=== PATIENT | female | born 1965 | race Caucasian/White ===

== ENCOUNTER 2022-12-23 08:06 | Outpatient (OUT) | payer OTHER, SELFPAY ==
[2022-12-23 08:50] LABS: Basophils Absolute Auto 0.1 10^3/uL (0.0-0.1); Eosinophils Absolute Auto 0.2 10^3/uL (0.0-0.7); Eosinophils Percent Auto 3.3 % (0.9-7.0); Hematocrit 40.6 % (36.0-48.0); Hemoglobin 13.2 g/dL (12.0-16.0); Immature Granulocytes Abs Auto 0.02 10^3/uL (0.00-0.03); Immature Granulocytes Pct Auto 0.3 % (0.0-0.5); Lymphocytes Absolute Auto 2.1 10^3/uL (1.2-3.8); Lymphocytes Percent Auto 34.8 % (20.5-60.0); Mean Corpuscular HGB Conc 32.5 g/dL (29.9-35.2); Mean Corpuscular Hemoglobin 30.1 pg (26.7-34.0); Mean Corpuscular Volume 92.7 fL (81.0-99.0); Mean Platelet Volume 10.1 fL (9.5-13.5); Monocytes Absolute Auto 0.6 10^3/uL (0.3-0.8); Monocytes Percent Auto 10.6 % (1.7-12.0); Platelet Count 309 10^3/uL (150-450); Red Blood Count 4.38 10^6/uL (4.20-5.40); Red Cell Distribution Width 12.3 % (11.0-15.0)
[2022-12-23 09:11] LABS: Bilirubin Urine NEGATIVE (NEGATIVE); Blood Urine TRACE-I (NEGATIVE); Clarity Urine CLEAR (CLEAR); Color Urine LT. YELLOW (YELLOW); Glucose Urine UA NEGATIVE (NEGATIVE); Ketones Urine NEGATIVE (NEGATIVE); Leukocyte Esterase Urine MODERATE (NEGATIVE); Nitrite Urine NEGATIVE (NEGATIVE); Protein Urine NEGATIVE (NEG/TRACE); Specific Gravity Urine 1.015 (1.005-1.025); Urobilinogen Urine 0.2 EU/dL (0.2-1.0)
[2022-12-23 09:29] LABS: Alanine Aminotransferase 17 U/L (14-59); Albumin Level 3.8 g/dL (3.4-5.0); Alkaline Phosphatase 103 U/L (46-116); Anion Gap 11.7; Aspartate Amino Transferase 12 U/L (15-37); BUN Creatinine Ratio 14.5; Bilirubin Total 0.6 mg/dL (0.2-1.0); Calcium 9.7 mg/dL (8.5-10.1); Chloride 103 mmol/L (98-107); Chol HDL Ratio 4.3; Cholesterol 251 mg/dL (<=200); Estimated GFR (African America >60 (>=60); Estimated GFR (Non-African Ame >60 (>=60); Globulin 3.8 g/dL; Glucose 93 mg/dL (74-106); HDL Cholesterol 58 mg/dL (40-60); Potassium 4.7 mmol/L (3.5-5.1); Sodium 140 mmol/L (136-145); Total Protein 7.6 g/dL (6.4-8.2); Triglycerides 142 mg/dL (<=150); VLDL CHOLESTEROL 28.4 mg/dL
[2022-12-23 09:38] LABS: Urine Microscopic Indicated YES
[2022-12-23 10:27] LABS: Squamous Epithelial Cell Urine FEW #/LPF (NONE/RARE)
[2022-12-23 10:28] LABS: Bacteria Urine NONE SEEN #/HPF (NONE SEEN); Cast Seen? NONE SEEN #/LPF (NONE SEEN); Crystals Seen? None Seen #/HPF (None Seen); Mucus Urine NONE SEEN (NONE SEEN); RBC Urine 0-2 #/HPF (0-2); Starch Urine FEW; Urine Culture Indicated YES
== END 2022-12-23 08:07 | disposition home or self-care (01) ==
LOC: LAB 08:07
PROVIDERS: PCP Family Medicine; Visit Provider Family Medicine
DX: Z00.00 Encounter for general adult medical examination without abnormal findings (principal)
CPT/HCPCS: 36415; 80053; 80061; 81001; 85025; 87086

== ENCOUNTER 2023-01-28 15:04 | Outpatient (OUT) | payer OTHER, SELFPAY ==
--- NOTE | 2023-01-28 15:07 | MM_ITS ---
Patient: RONY IRBY Exam Date: 01/28/2023 : 1965 Gender:F Ordering : DR LEO ESTEBAN Admission #: [id number] Family : DR Lillian Zepeda M.D. Order #: [id number] CLICK HERE TO VIEW EXAM RADIOLOGY REPORT PROCEDURE: MM TOMOSYNTHESIS SCREENING BI COMPARISON: MG MAMM SCREEN 3D [place] CAD, 01/21/2021. MG MAMM SCREEN 3D [place] CAD, 01/27/2022. INDICATIONS: Screening Calculator Name NCI Breast Cancer Risk Assessment Tool 5 Year Breast Cancer Risk 0.80% Lifetime Breast Cancer Risk 5.30% Personal Breast Cancer No Personal Ovarian Cancer No Treatments None Family Cancers Mother with ovarian cancer at age ~40; Mother with colon cancer at age ~60; Father with lung cancer at age ~70. LOCATION: [facility] BREAST COMPOSITION: Extremely dense, which lowers the sensitivity of mammography. FINDINGS: DIAGNOSTIC CATEGORY 1--NEGATIVE. NO CHANGE FROM COMPARISON ASSESSMENT. Scattered benign-appearing calcifications are present. Scattered benign-appearing lymph nodes are present. RIGHT BREAST: No significant suspicious finding. LEFT BREAST: No significant suspicious finding. RECOMMENDATIONS: ROUTINE MAMMOGRAM AND CLINICAL EVALUATION IN 12 MONTHS. PLEASE NOTE: A NORMAL MAMMOGRAM DOES NOT EXCLUDE THE POSSIBILITY OF BREAST CANCER. A CLINICALLY SUSPICIOUS PALPABLE LUMP SHOULD BE BIOPSIED. Dictated by: Wolfgang Wilcox MD on 01/29/2023 at 08:11 Approved by: Wolfgang Wilcox MD on 01/29/2023 at 08:12
== END 2023-01-28 15:05 | disposition home or self-care (01) ==
LOC: MAMMO 15:04
PROVIDERS: PCP Family Medicine; Visit Provider Obstetrics & Gynecology
DX: Z12.31 Encounter for screening mammogram for malignant neoplasm of breast (principal); Z80.1 Family history of malignant neoplasm of trachea, bronchus and lung; Z80.0 Family history of malignant neoplasm of digestive organs; Z80.41 Family history of malignant neoplasm of ovary
CPT/HCPCS: 77063; 77067

== ENCOUNTER 2024-02-01 16:19 | Outpatient (OUT) | payer OTHER, SELFPAY ==
--- NOTE | 2024-02-01 | MM_ITS ---
Patient Name: RONY IRBY MR#: [id number] : 1965 Exam Date: 02/01/2024 Ordering Doctor: DR LEO ESTEBAN RADIOLOGY REPORT PROCEDURE: MM TOMOSYNTHESIS SCREENING BI COMPARISON: MM TOMOSYNTHESIS SCREENING BI, 01/28/2023. MG MAMM SCREEN 3D [place] CAD, 01/27/2022. MG MAMM SCREEN 3D [place] CAD, 01/21/2021. MG MAMM [place] SCRN W CAD DIG, 01/25/2013. INDICATIONS: screening mamm Z12.31 Calculator Name NCI Breast Cancer Risk Assessment Tool 5 Year Breast Cancer Risk 0.80% Lifetime Breast Cancer Risk 5.20% Personal Breast Cancer No Personal Ovarian Cancer No Treatments None Family Cancers Mother with ovarian cancer at age ~40; Mother with colon cancer at age ~60; Father with lung cancer at age ~70. LOCATION: [facility] BREAST COMPOSITION: The breasts are heterogeneously dense,which may obscure small masses. FINDINGS: DIAGNOSTIC CATEGORY 1--NEGATIVE. RIGHT BREAST: No significant suspicious finding. No significant change has occurred. LEFT BREAST: No significant suspicious finding. No significant change has occurred. RECOMMENDATIONS: ROUTINE MAMMOGRAM AND CLINICAL EVALUATION IN 12 MONTHS. PLEASE NOTE: A NORMAL MAMMOGRAM DOES NOT EXCLUDE THE POSSIBILITY OF BREAST CANCER. A CLINICALLY SUSPICIOUS PALPABLE LUMP SHOULD BE BIOPSIED. Dictated by: Marcellus Ross M.D. on 02/03/2024 at 14:23 Approved by: Marcellus Ross M.D. on 02/03/2024 at 14:25
--- OUTSIDE RECORDS SUMMARY | 2024-02-01 16:23 | XMS_ITS | CCD ---
Author Organization [facility] Care Team Providers Care Gold Letterer Name Role Phone Sergio Cowan Unavailable Lillian Cowan Unavailable MD Destin Harper Attending Provider MD Lillian Cowan Primary Care Provider Moshe Saini Unavailable Destin Harper Unavailable PARAG ., DR NICK Rhodes Attending Unavailable GARSIA ., DR NICK Rhodes Admitting Unavailable ESPINO ., NALLELY Consulting Unavailable COWAN, DR LILLIAN Cabral Primary Care Unavailable GARSIA ., DR NICK Rhodes Consulting Unavailable GARSIA ., DR NICK Rhodes Attending Unavailable GARSIA ., DR NICK Rhodes Admitting Unavailable COWAN, DR LILLIAN Cabral Primary Care Unavailable COWAN, DR LILLIAN Cabral Primary Care Unavailable GARSIA ., DR NICK Rhodes Admitting Unavailable GARSIA ., DR NICK Rhodes Attending Unavailable ESPINO ., NALLELY Consulting Unavailable GARSIA ., DR NICK Rhodes Admitting Unavailable GARSIA ., DR NICK Rhodes Attending Unavailable COWAN, DR LILLIAN Cabral Primary Care Unavailable ARLENE ., MELISSA Attending Unavailable ARLENE ., MELISSA Admitting Unavailable CAMRYN, DR LILLIAN Cabral Primary Care Unavailable ARLENE ., MELISSA Consulting Unavailable ARLENE ., MELISSA Attending Unavailable ARLENE ., MELISSA Admitting Unavailable CAMRYN, DR LILLIAN Cabral Primary Care Unavailable ARLENE ., MELISSA Attending Unavailable ARLENE ., MELISSA Admitting Unavailable ARLENE ., MELISSA Consulting Unavailable CAMRYN, DR LILLIAN Cabral Primary Care Unavailable CAMRYN, DR LILLIAN Cabral Primary Care Unavailable CAMRYN, DR LILLIAN Cabral Attending Unavailable CAMRYN, DR LILLIAN Cabral Admitting Unavailable DALE, DR EMI Au Consulting Unavailable CAMRYN, DR LILLIAN Cabral Consulting Unavailable DALE, DR MEI Au Consulting Unavailable CAMRYN, DR LILLIAN Cabral Primary Care Unavailable CAMRYN, DR LILLIAN Cabral Attending Unavailable CAMRYN, DR LILLIAN Cabral Admitting Unavailable CAMRYN, DR LILLIAN Cabral Consulting Unavailable PRINTSoraya, DR BAILEY Attending Unavailable PRINTY, DR BAILEY Admitting Unavailable ZIEBMANUEL, DR MARCELLUS Lai Consulting Unavailable CAMRYN, DR LILILAN Cabral Primary Care Unavailable PRINTY, DR BAILEY Consulting Unavailable ARLENE ., MELISSA Consulting Unavailable ARLENE ., MELISSA Attending Unavailable ARLENE ., MELISSA Admitting Unavailable CAMRYN, DR LILLIAN Cabral Primary Care Unavailable MD Lillian Cowan Primary Care Provider MD Destin Harper Attending Provider DO Moshe Saini Attending Provider [phone] MD Lillian Cowan Primary Care Provider DO Terry Sainiin A Attending Provider MD Lillian Cowan Primary Care Provider DO Darryl Moshe A Attending Provider MD Lillian Cowan Primary Care Provider DO Darryl Moshe A Attending Provider Moshe Saini Admitting Unavailable Lillian Cowan Primary Care Unavailable Moshe Saini Attending Unavailable Lillian Cowan Primary Care Unavailable Moshe Saini Attending Unavailable Moshe Saini Admitting Unavailable Lillian Cowan MD Primary Care Provider [phone] Allergies Allergy Classification Reported Allergen(s) Allergy Type Date of Onset Reaction(s) Facility (20 sources) Angiotensin-con verting enzyme inhibitor agent Drug allergy Unknown [employer] Other (10 sources) Angiotensin Converting Enzyme (Srinath) Inhibitors; Translations: [Srinath Inhibitors] Allergy to substance [address] [facility] (11 sources) benazepril Drug Allergy 5 Unknown [employer] Other (4 sources) patient allergy list reviewed by nurse or physicia Propensity to adverse reactions 9 Comment:Done [employer] Other (4 sources) Allergies Reconciled Propensity to adverse reactions Unknown [employer] Other (3 sources) Atenolol Propensity to adverse reactions 3 [facility] Medications Current Medications Medication Drug Class(es) Dates Sig (Normalized) Sig (Original) acetaminophen 500 mg oral tablet (20 sources) Start: 10-21-2022 take 500 mg by mouth three times daily Acetaminophen Active 500 MG PO Three times daily October 21, 2022 12:00am Start: 08-31-2022 take 2 tablets by mo uth every eight hours Acetaminophen 500 MG 2 tablets Orally Every 8 hours for 30 days DO NOT FILL UNTIL 11/02/2022 [facility] # [id number] Oct, Not-Taking/PRN amoxicillin 500 mg oral tablet (1 source) Penicillin-class Antibacterial Start: 04-27-2023 take 4 tablets by mouth every hour Amoxicillin 500 MG 4 tablets Orally 1 hour prior to procedure for 1 days Apr, Active atorvastatin 20 mg oral tablet (12 sources) HMG-CoA Reductase Inhibitor Start: 11-28-2023 atorvastatin (Lipitor) 20 MG tablet 11/28/2023 Active Start: 10-18-2023 take 1 tablet by fiordaliza th once daily Atorvastatin Active 0 .ROUTE .COMPLEX October 18, 2023 8:33am take 1 tablet by mouth once daily Start: 06-15-2023 End: 10-18-2023 take 1 tablet by mouth once daily Atorvastatin Discontinued 0 .ROUTE .COMPLEX June 15, 2023 4:13pm October 18, 2023 8:33am take 1 tablet by mouth once daily Start: 06-15-2023 End: 06-15-2023 take 20 mg by mouth once daily Atorvastatin Discontinu ed 20 MG PO Daily June 15, 2023 1:00am June 15, 2023 4:13pm take 1 tablet by fiordaliza th every twenty-four hours Atorvastatin Calcium 20 MG 1 tablet Orally Once a day for 30 days Active Calcium + D 500-1000-40 MG-UNT-MCG (18 sources) Calcium + D 500-1000-40 MG-UNT-MCG as directed Orally Active calcium acetate 667 mg oral capsule (3 sources) calcium acetate (Phoslo) 667 MG capsule Take by mouth 3 (three) times a day with meals. Active calcium carbonate 1500 mg / cholecalciferol 200 unt oral tablet (8 sources) Vitamin D Start: 3 take 1 tablet by mouth once daily in the morning Calcium Carbonate-Vitamin D3 (Calcium + D) 600 mg-5 mcg (200 unit) Tablet Active 1 TAB PO Every morning June 23, 2022 12:00am calcium carbonate 1250 mg / cholecalciferol 1000 unt / vitamin k 0.4 mg chewable tablet (4 sources) Vitamin D Calcium + D 500-1000-40 MG-UNT-MCG as directed Orally Active chondroitin sulfates 400 mg / glucosamine sulfate 500 mg oral tablet (3 sources) take 1 tablet by mouth in the morning, then take 1 tablet by mouth in the evening, then take 1 tablet by mouth at bedtime glucosamine-chondro itin 500-400 MG tablet Take 1 tablet by mouth in the morning and 1 tablet in the evening and 1 tablet before bedtime. Active Diclofenac Sod & Trolamine Josue (7 sources) Diclofenac Sod & Trolamine Josue Active docusate sodium 100 mg oral capsule (1 source) Start: 3 take 1 capsule by mouth every twelve hours Colace 100 MG 1 capsule Orally Twice a day for 14 days DO NOT FILL UNTIL 11/02/2022 [facility] # [id number] Oct, Active doxycycline hyclate 100 mg oral tablet (1 source) Tetracycline-class Drug Start: 3 take 1 tablet by mouth every twelve hours Doxycycline Hyclate 100 MG 1 tablet Orally Twice a day for 7 days DO NOT FILL UNTIL 11/02/2022 [facility] # [id number] Oct, Active FLUoxetine 20 mg oral capsule (12 sources) Serotonin Reuptake Inhibitor Start: 4 FLUoxetine (PROzac) 20 MG capsule .COMPLEX 10/18/2023 Active Start: 06-15-2023 End: 10-18-2023 take 1 capsule by mouth once daily Fluoxetine Active 0 .ROUTE .COMPLEX October 18, 2023 8:33am take 1 capsule by mouth once daily Start: 06-15-2023 End: 06-15-2023 take 20 mg by mouth once daily Fluoxetine Discontinued 20 MG PO Daily June 15, 2023 1:00am June 15, 2023 4:13pm Start: 04-01-2023 take 1 capsule by [facility] every twenty-four hours FLUoxetine HCl 10 MG 1 capsule Orally Once a day for 30 day(s) Mar, Active take 1 capsule by [facility] every twenty-four hours FLUoxetine HCl 20 MG 1 capsule Orally Once a day for 30 days Active Glucos Sul 3qnb-Ryu-Kxyfd-C-Mn (Glucosamine Chondroitin) 550-30-1 mg Capsule (5 sources) Start: 10-21-2022 take 1 capsule by mouth once daily in the morning Glucos Sul 9viw-Cfv-Atxbp-C-Mn (Glucosamine Chondroitin) 550-30-1 mg Capsule Active 1 CAP PO Every morning October 20, 2022 11:00pm Start: 10-21-2022 take 1 capsule by [facility] once daily in the morning Glucos Sul 8jmn-Qgl-Ysbkd-C-Mn (Glucosamine Chondroitin) 550-30-1 mg Capsule Active 1 CAP PO Every morning October 21, 2022 12:00am Viki 500 MG (20 sources) Viki 500 MG as d irected Orally Active Viki Extract (8 sources) Start: 06-23-2022 take 500 mg by mouth once daily in the morning Viki Extract Active 500 MG PO Every morning June 22, 2022 11:00pm Start: 06-23-2022 take 500 mg by mouth once daily in the morning Viki Extract Active 500 MG PO Every morning June 23, 2022 12:00am Start: 06-23-2022 take 500 mg by mouth once mary lou y Viki Extract Active 500 MG PO Daily June 23, 2022 12:00am Multi For Her - (20 sources) Multi For Her - as directed Orally Active Multiple Vitamins-Minerals (Multivitamin) liquid (3 sources) Multiple Vitamins-Minerals (Multivitamin) liquid Orally Active Multivitamin preparation (8 sources) Start: 06-23-2022 take 1 tablet by mouth once daily in the morning Multivitamin Active 1 TAB PO Every morning June 22, 2022 11:00pm Start: 06-23-2022 take 1 tablet by fiordaliza th once daily in the morning Multivitamin Active 1 TAB PO Every morning June 23, 2022 12:00am Start: 06-23-2022 take 1 tablet by fiordaliza th once daily Multivitamin Active 1 TAB PO Daily June 23, 2022 12:00am naproxen 500 mg oral tablet (20 sources) Nonsteroidal Anti-inflammatory Drug Start: 08-31-2022 take 500 mg by mouth twice daily Naproxen Active 500 MG PO Twice daily October 21, 2022 12:00am oxyCODONE hydrochloride 5 mg oral tablet (1 source) Opioid Agonist Start: 10-26-2022 take 1 tablet by mouth every four hours as needed for pain oxyCODONE HCl 5 MG 1 tablet Orally Every 4 hours, as needed for pain for 7 days DO NOT FILL UNTIL 11/02/2022 [facility] # [id number] Oct, Active 24 hr propranolol hydrochloride 120 mg extended release oral capsule (20 sources) beta-Adrenergic Negrita Start: 06-23-2022 take 1 capsule by mouth once daily propranolol LA (Inderal LA) 120 MG 24 hr capsule Indications: Tremor take 1 capsule by mouth once daily 90 capsule 10/18/2023 Active Start: 04-16-2022 End: 01-31-2024 take 1 capsule by mouth every twenty-four hours in the morning propranolol LA (Inderal LA) 80 MG 24 hr capsule Take 80 mg by mouth in the morning. 04/16/2022 01/31/2024 Discontinued (Ineffective) Turmeric Curcumin 5-1000 MG (10 sources) Turmeric Curcumi n 5-1000 MG as directed Orally Active Completed/Discontinued Medications Medication Drug Class(es) Dates Sig (Normalized) Sig (Original) aspirin 81 mg chewable tablet (11 sources) Platelet Aggregation Inhibitor, Nonsteroidal Anti-inflammatory Drug Start: 10-26-2022 take 1 tablet by mouth every twelve hours Aspirin 81 MG 1 tablet Orally Twice a day for 37 days DO NOT FILL UNTIL 11/02/2022 [facility] # [id number] Oct, Not-Taking/PRN atenolol 25 mg oral tablet (20 sources) beta-Adrenergic Negrita Atenolol 25 MG Oral for 30 Days Not-Taking/PRN cyclobenzaprine hydrochloride 10 mg oral tablet (20 sources) Muscle Relaxant Start: 10-26-2022 take 0.5-1 tablets by mouth every eight hours as needed Cyclobenzaprine HCl 10 MG 1/2 to 1 tab Orally Every 8 hours for 14 days DO NOT FILL UNTIL 11/02/2022 [facility] # [id number] Oct, Not-Taking/PRN Start: 06-23-2022 End: 11-10-2023 take 5 mg by mouth once daily Cyclobenzaprine Disconti nued 5 MG PO Daily June 23, 2022 12:00am November 10, 2023 3:52pm diclofenac sodium 50 mg delayed release oral tablet (20 sources) Nonsteroidal Anti-inflammatory Drug Start: 06-23-2022 End: 10-21-2022 take 50 mg by mouth twice daily Diclofenac Sodium Discontinued 50 MG PO Twice daily June 23, 2022 12:00am October 21, 2022 3:36pm take 1 capsule by mo [facility] every eight hours Diclofenac 35 MG 1 capsule as needed Ora lly Three times a day Not-Taking/PRN methylPREDNISolone 4 mg oral tablet (20 sources) Corticosteroid Start: 05-18-2022 methylPREDNISolone 4 MG as directed Orally for 6 days May, Not-Taking/PRN traMADol hydrochloride 50 mg oral tablet (20 sources) Opioid Agonist Start: 10-21-2022 End: 11-10-2023 take 50 mg by mouth once daily Tramadol Discontinued 50 MG PO Daily October 21, 2022 12:00am November 10, 2023 3:53pm Start: 08-31-2022 take 1 tablet by fiordaliza every four hours traMADol HCl 50 MG 1 tablet Orally Every 4 hours for 7 days DO NOT FILL UNTIL 11/02/2022 [facility] # [id number] Oct, Not-Taking/PRN Turmeric Root Extract (8 sources) Start: 06-23-2022 End: 10-21-2022 take 500 mg by mouth once daily Turmeric Root Extract Discontinued 500 MG PO Daily June 22, 2022 11:00pm October 21, 2022 2:37pm Start: 06-23-2022 End: 10-21-2022 take 500 mg by mouth once daily Turmeric Root Extract Discontinued 500 MG PO Daily June 23, 2022 12:00am October 21, 2022 3:37pm Start: 06-23-2022 take 500 mg by mouth once daily Turmeric Root Extract Active 500 MG PO Daily June 23, 2022 12:00am Problems Active Problems Problem Classification Problem Date Documented Date Episodic/Chronic Acquired foot deformities (3 sources) Acquired hallux malleus; Translations: [Other hammer toe(s) (acquired), left foot] Onset: 09-10-2022 09-10-2022 Chronic Anxiety disorders (6 sources) Generalized anxiety disorder; Translations: [Generalized anxiety disorder] Chronic Disorders of lipid metabolism (7 sources) Hyperlipidemia; Translations: [Hyperlipidemia, unspecified] Chronic Essential hypertension (20 sources) Essential hypertension; Translations: [Essential (primary) hypertension] Onset: 03-20-2013 Chronic Fluid and electrolyte disorders (4 sources) Hyperkalemia; Translations: [Hyperkalemia] Episodic Immunizations and screening for infectious disease (2 sources) Patient encounter status; Translations: [Encounter for screening for human papillomavirus (HPV)] 01-26-2024 Episodic Lymphadenitis (20 sources) Cervical lymphadenopathy; Translations: [Localized enlarged lymph nodes] Episodic Osteoarthritis (20 sources) Arthropathy of right hip joint; Translations: [Unilateral primary osteoarthritis, right hip] Onset: 09-11-2021 Resolved: 09-11-2021 Chronic Other acquired deformities (20 sources) Lumbar spondylolisthesis; Translations: [Spondylolisthesis, lumbar region] Episodic Other acquired deformities (6 sources) Spondylolisthesis, lumbar region; Translations: [SPONDYLOLISTHESIS LUMBAR REGION] Onset: 09-11-2021 Resolved: 09-11-2021 Episodic Other circulatory disease (4 sources) Elevated blood-pressure reading without diagnosis of hypertension; Translations: [Elevated blood-pressure reading, without diagnosis of hypertension] Episodic Other connective tissue disease (10 sources) History of total hip arthroplasty; Translations: [Presence of left artificial hip joint] Chronic Other connective tissue disease (7 sources) Presence of left artificial hip joint; Translations: [Hip joint replacement] Onset: 11-10-2023 Chronic Other connective tissue disease (2 sources) Hip joint prosthesis present; Translations: [Presence of left artificial hip joint] 11-05-2023 Chronic Other connective tissue disease (20 sources) Trochanteric bursitis; Translations: [Trochanteric bursitis, right hip] Episodic Other nervous system disorders (20 sources) Tremor; Translations: [Tremor, unspecified] Episodic Other non-traumatic joint disorders (20 sources) Arthralgia of the lower leg; Translations: [Pain in right knee] Episodic Other nutritional; endocrine; and metabolic disorders (4 sources) Body mass index 30+ - obesity; Translations: [Body mass index (BMI) 30.0-30.9, adult] Chronic Other nutritional; endocrine; and metabolic disorders (4 sources) Obese class I; Translations: [Body mass index (BMI) 31.0-31.9, adult] Chronic Other screening for suspected conditions (not mental disorders or infectious disease) (11 sources) Encounter for screening mammogram for malignant neoplasm of breast; Translations: [Mammography abnormal] Onset: 01-27-2022 Episodic Residual codes; unclassified (4 sources) Family history of malignant neoplasm of gastrointestinal tract; Translations: [Family history of malignant neoplasm of digestive organs] Episodic Residual codes; unclassified (4 sources) Family history of diabetes mellitus; Translations: [Family history of diabetes mellitus] Episodic Spondylosis; intervertebral disc disorders; other back problems (20 sources) Degeneration of lumbar intervertebral disc; Translations: [Other intervertebral disc degeneration, lumbar region] Onset: 08-26-2021 Chronic Spondylosis; intervertebral disc disorders; other back problems (20 sources) Lumbar radiculopathy; Translations: [Radiculopathy, lumbar region] Onset: 11-04-2021 Episodic Unclassified (4 sources) LOW BACK PAIN, UNSPECIFIED; Translations: [LOW BACK PAIN, UNSPECIFIED] Onset: 10-06-2021 Unclassified (1 source) Unilateral primary osteoarthritis, left hip; Translations: [Unilateral primary osteoarthritis, left hip] Onset: 04-21-2023 Past or Other Problems Problem Classification Problem Date Documented Da te Episodic/Chronic Abdominal pain (1 source) Lower abdominal pain, unspecified; Translations: [LOWER ABDOMINAL PAIN UNSPECIFIED] Onset: 04-16-2022 Episodic Other connective tissue disease (6 sources) Trochanteric bursitis, right hip; Translations: [TROCHANTERIC BURSITIS RIGHT HIP] Onset: 09-11-2021 Resolved: 09-11-2021 Episodic Other connective tissue disease (1 source) Trochanteric bursitis, left hip; Translations: [TROCHANTERIC BURSITIS LEFT HIP] Onset: 03-26-2022 Episodic Other eye disorders (4 sources) Disorder of eye; Translations: [Unspecified disorder of globe] Onset: 06-09-2013 Episodic Other fractures (3 sources) History of stress fracture; Translations: [Personal history of (healed) stress fracture] Onset: 09-10-2022 09-10-2022 Episodic Other non-traumatic joint disorders (5 sources) Pain in right hip; Translations: [PAIN IN RIGHT HIP] Onset: 05-18-2022 Episodic Other non-traumatic joint disorders (2 sources) Pain in left hip; Translations: [PAIN IN LEFT HIP] Onset: 05-19-2022 Episodic Other skin disorders (4 sources) Nail bed infection; Translations: [Onychia and paronychia of toe] Onset: 08-15-2015 Episodic Residual codes; unclassified (1 source) Family history of malignant neoplasm of ovary; Translations: [FAM HX MALIGNANT NEOPLASM OVARY] Onset: 02-04-2022 Episodic Residual codes; unclassified (1 source) Family history of malignant neoplasm of trachea, bronchus and lung; Translations: [FAM HX MALIG NEOPLSM TRACH BRON LNG] Onset: 02-04-2022 Episodic Residual codes; unclassified (1 source) Family history of malignant neoplasm of digestive organs; Translations: [FAM HX MALIG NEOPLASM DIGESTIV ORGN] Onset: 02-04-2022 Episodic Unclassified (1 source) LOW BACK PAIN, UNSPECIFIED; Translations: [LOW BACK PAIN, UNSPECIFIED] Onset: 10-03-2021 Results Test Name Value Interpretation Reference Range Facility XR hip LT min 2V(w/wo pelvis )*on 11-10-2023 XR hip LT min 2V(w/wo pelvis)* [facility] [address] [place] [address] XRay Report Signed Patient: Xuan Irby MR#: [id number] 84 : 1965 Acct:[id number] Age/Sex: 58 / F ADM Date: 11/10/23 [place] [facility] [place] Type[place] [facility] Attending Dr: Moshe Saini DO Copies to: Moshe Saini DO Ordering Provider: Moshe Saini DO Date of Service: 11/10/23 XR/XR hip LT min 2V(w/wo pelvis)*: Z96.642 - Presence of left artificial hip joint LEFT HIP - 2 views: CLINICAL HISTORY: Follow-up left DIANE COMPARISON: Hip series 04/21/2023 FINDINGS: Left DIANE without radiographic complication. No acute bony process. Degenerative changes involving the visualized lower lumbar spine and SI joints. XR/XR hip LT min 2V(w/wo pelvis)* IMPRESSION: NO EVIDENCE OF HARDWARE COMPLICATION.. Impression dictated by: Nate Marcano Jr., D.OSaúl11/10/2023 4:01 PM Dictation Location: RADIO-PC-08 Transcribed By: JUANIS 11/10/23 1601 Dictated By: Nate Marcano Jr, DO 11/10/23 1601 Signed By: 11/10/23 1601 Normal [facility] XR hip LT min 2V(w/wo pelvis )*on 04-21-2023 XR hip LT min 2V(w/wo pelvis)* [place] [address] XRay Report Signed Patient: Xuan Irby MR#: [id number] : 1965 Acct:[id number] Age/Sex: 58 / F ADM Date: 04/21/23 [place] [facility] [place] [facility] [facility] Attending Dr: Moshe Saini DO Copies to: Moshe Saini DO Ordering Provider: Moshe Saini DO Date of Service: 04/21/23 XR/XR hip LT min 2V(w/wo pelvis)*: Primary osteoarthritis of left hip LEFT HIP - 2 views: CLINICAL HISTORY: Status post left DIANE COMPARISON: Left hip 11/03/2022 FINDINGS: Left DIANE without radiographic complication. XR/XR hip LT min 2V(w/wo pelvis)* IMPRESSION: NO EVIDENCE OF HARDWARE COMPLICATION.. Impression dictated by: Nate Marcano Jr., D.O.04/21/2023 4:19 PM Dictation Location: RADIO-PC-08 Transcribed By: JUANIS 04/21/23 1619 Dictated By: Nate Marcano Jr, DO 04/21/23 1619 Signed By: 04/21/23 1619 Normal [facility] XR hip LT min 2V(w/wo pelvis)* [facility] [employer] Other XR hip LT min 2V(w/wo pelvis)* [facility] [employer] Other XR hip LT min 2V(w/wo pelvis)* [address] [place] [address] [employer] Other XR hip LT min 2V(w/wo pelvis)* [place] [address] [employer] Other XR hip LT min 2V(w/wo pelvis)* XRay Report [employer] Other XR hip LT min 2V(w/wo pelvis)* Signed [employer] Other XR hip LT min 2V(w/wo pelvis)* Patient: Xuan Irby MR#: [id number] [employer] Other XR hip LT min 2V(w/wo pelvis)* 84 [employer] Other XR hip LT min 2V(w/wo pelvis)* : 1965 Acct:[id number] [employer] Other XR hip LT min 2V(w/wo pelvis)* Age/Sex: 58 / F ADM Date: 04/21/23 [employer] Other XR hip LT min 2V(w/wo pelvis)* [place] [facility] [place] [facility] [employer] Other XR hip LT min 2V(w/wo pelvis)* Attending Dr: Moshe Saini DO [employer] Other XR hip LT min 2V(w/wo pelvis)* Copies to: Moshe Saini DO [employer] Other XR hip LT min 2V(w/wo pelvis)* Ordering Provider: Moshe Saini DO [employer] Other XR hip LT min 2V(w/wo pelvis)* Date of Service: 04/21/23 [employer] Other XR hip LT min 2V(w/wo pelvis)* XR/XR hip LT min 2V(w/wo pelvis)*: Primary osteoarthritis of left hip [employer] Other XR hip LT min 2V(w/wo pelvis)* LEFT HIP - 2 views: [employer] Other XR hip LT min 2V(w/wo pelvis)* CLINICAL HISTORY: Status post left DIANE [employer] Other XR hip LT min 2V(w/wo pelvis)* COMPARISON: Left hip 11/03/2022 [employer] Other XR hip LT min 2V(w/wo pelvis)* FINDINGS: Left DIANE without radiographic complication. [employer] Other XR hip LT min 2V(w/wo pelvis)* XR/XR hip LT min 2V(w/wo pelvis)* [employer] Other XR hip LT min 2V(w/wo pelvis)* IMPRESSION: [employer] Other XR hip LT min 2V(w/wo pelvis)* NO EVIDENCE OF HARDWARE COMPLICATION.. [employer] Other XR hip LT min 2V(w/wo pelvis)* Impression dictated by: Nate Marcano Jr., D.O.04/21/2023 4:19 PM [employer] Other XR hip LT min 2V(w/wo pelvis)* Dictation Location: [place] [address] [employer] Other XR hip LT min 2V(w/wo pelvis)* Transcribed By: PWS 04/21/23 [facility] [employer] Other XR hip LT min 2V(w/wo pelvis)* Dictated By: Nate Marcano Jr, DO 04/21/23 [facility] [employer] Other XR hip LT min 2V(w/wo pelvis)* Signed By: [employer] Other XR hip LT min 2V(w/wo pelvis)* 04/21/23 [facility] [employer] Other Alanine aminotransferase [En zymatic activity/volume] in Serum or PlasmaOrdered By: Moshe Saini on 10-21-2022 ALT [Catalytic activity/Vol] 10 U/L 752 [facility] Albumin [Mass/volume] in Ser um or Plasma by Bromocresol green (BCG) dye binding methoOrdered By: Moshe Saini on 10-21-2022 Albumin BCG dye [Mass/Vol] 4.5 g/dL 3.5-5.7 [facility] Alkaline phosphatase [Enzyma tic activity/volume] in Serum or PlasmaOrdered By: Moshe Saini on 10-21-2022 ALP [Catalytic activity/Vol] 77 U/L 34-104 [facility] Aspartate aminotransferase [ Enzymatic activity/volume] in Serum or PlasmaOrdered By: Moshe Saini on 10-21-2022 AST [Catalytic activity/Vol] 15 U/L 13-39 [facility] Basophils Auto (Bld) [#/Vol] Ordered By: Moshe Saini on 10-21-2022 Basophils (Bld) [#/Vol] 0.1 10*3/uL 0.0-0.2 [facility] Basophils/100 WBC Auto (Bld) Ordered By: Moshe Saini on 10-21-2022 Basophils/100 WBC (Bld) 0.8 % . [facility] Bilirubin Test strip Ql (U)O rdered By: Moshe Saini on 10-21-2022 Bilirubin Ql (U) Negative Negative [facility] Bilirubin.total [Mass/volume ] in Serum or PlasmaOrdered By: Moshe Saini on 10-21-2022 Bilirubin [Mass/Vol] 0.4 mg/dL 0.3-1.0 [facility] Calcium [Mass/volume] in Ser um or PlasmaOrdered By: Moshe Saini on 10-21-2022 Calcium [Mass/Vol] 9.6 mg/dL 8.6-10.3 [facility] Carbon dioxide, total [Moles /volume] in Serum or PlasmaOrdered By: Moshe Saini on 10-21-2022 CO2 [Moles/Vol] 28.3 mmol/L 21.0-31.0 [facility] Chloride [Moles/volume] in S jeane or PlasmaOrdered By: Moshe Saini on 10-21-2022 Chloride [Moles/Vol] 101 mmol/L 98-107 [facility] Color Auto (U)Ordered By: Libby Saini on 10-21-2022 Color (U) Yellow Yellow [facility] Creatinine [Mass/volume] in Serum or PlasmaOrdered By: Moshe Saini on 10-21-2022 Creatinine [Mass/Vol] 0.68 mg/dL 0.60-1.20 [facility] Eosinophils Auto (Bld) [#/Vo l]Ordered By: Moshe Saini on 10-21-2022 Eosinophils (Bld) [#/Vol] 0.3 10*3/uL 0.0-0.45 [facility] Eosinophils/100 WBC Auto (Bl d)Ordered By: Moshe Saini on 10-21-2022 Eosinophils/100 WBC (Bld) 3.1 % . [facility] Erythrocyte distribution wid th Auto (RBC) [Ratio]Ordered By: Moshe Saini on 10-21-2022 Erythrocyte distribution width (RBC) [Ratio] 13.2 % 11.9-15.3 [facility] Globulin Calc (S) [Mass/Vol] Ordered By: Moshe Saini on 10-21-2022 Globulin (S) [Mass/Vol] 2.7 g/dL [facility] Glucose [Mass/volume] in Ser um or PlasmaOrdered By: Moshe Saini on 10-21-2022 Glucose [Mass/Vol] 83 mg/dL 70-100 [facility] Hematocrit Auto (Bld) [Volum e fraction]Ordered By: Moshe Saini on 10-21-2022 Hematocrit (Bld) [Volume fraction] 38.0 % 34.0-46.4 [facility] Hemoglobin [Mass/volume] in BloodOrdered By: Moshe Saini on 10-21-2022 Hemoglobin (Bld) [Mass/Vol] 13.2 g/dL 11.8-15.4 [facility] Ketones Auto test strip (U) [Mass/Vol]Ordered By: Moshe Saini on 10-21-2022 Ketones (U) [Mass/Vol] Negative [facility] Leukocytes [#/volume] correc valentino for nucleated erythrocytes in Blood by Automated counOrdered By: Moshe Saini on 10-21-2022 WBC corrected for nucl RBC Auto (Bld) [#/Vol] 8.4 10*3/uL 3.8-11.6 [facility] Lymphocytes Auto (Bld) [#/Vo l]Ordered By: Moshe Saini on 10-21-2022 Lymphocytes (Bld) [#/Vol] 2.4 10*3/uL 1.00-4.8 [facility] Lymphocytes/100 WBC Auto (Bl d)Ordered By: Moshe Saini on 10-21-2022 Lymphocytes/100 WBC (Bld) 28.9 % . [facility] MCH Auto (RBC) [Entitic mass ]Ordered By: Moshe Saini on 10-21-2022 MCH (RBC) [Entitic mass] 31.5 pg 24.7-34.3 [facility] MCHC Auto (RBC) [Mass/Vol]Or dered By: Moshe Saini on 10-21-2022 MCHC (RBC) [Mass/Vol] 34.9 g/dL 32.0-35.0 [facility] MCV Auto (RBC) [Entitic vol] Ordered By: Moshe Saini on 10-21-2022 MCV (RBC) [Entitic vol] 90.3 fL 80-100 [facility] Monocytes Auto (Bld) [#/Vol] Ordered By: Moshe Saini on 10-21-2022 Monocytes (Bld) [#/Vol] 1.0 10*3/uL 0.0-0.8 [facility] Monocytes/100 WBC Auto (Bld) Ordered By: Moshe Saini on 10-21-2022 Monocytes/100 WBC (Bld) 12.3 % . [facility] Neutrophils Auto (Bld) [#/Vo l]Ordered By: Moshe Saini on 10-21-2022 Neutrophils (Bld) [#/Vol] 4.6 10*3/uL 1.8-7.7 [facility] Neutrophils/100 WBC Auto (Bl d)Ordered By: Moshe Saini on 10-21-2022 Neutrophils/100 WBC (Bld) 54.9 % . [facility] Nitrite Test strip Ql (U)Ord ered By: Moshe Saini on 10-21-2022 Nitrite Ql (U) Negative Negative [facility] No Panel InformationOrdered By: Moshe Saini on 10-21-2022 Estimated GFR (CKD-EPI) > 60.0 mL/Min [facility] Creatinine Clearance (Chem N/A [facility] Nucleated erythrocytes [Pres ence] in Blood by Automated countOrdered By: Moshe Saini on 10-21-2022 Nucleated RBC Auto Ql (Bld) 0.1 /100{WBC} 0-0.5 [facility] Platelet mean volume Auto (B ld) [Entitic vol]Ordered By: Moshe Saini on 10-21-2022 Platelet mean volume (Bld) [Entitic vol] 8.1 fL 6.3-10.7 [facility] Platelets Auto (Bld) [#/Vol] Ordered By: Moshe Saini on 10-21-2022 Platelets (Bld) [#/Vol] 284 10*3/uL 150-450 [facility] Potassium [Moles/volume] in Serum or PlasmaOrdered By: Moshe Saini on 10-21-2022 Potassium [Moles/Vol] 4.0 mmol/L 3.5-5.1 [facility] Protein Auto test strip (U) [Mass/Vol]Ordered By: Moshe Saini on 10-21-2022 Protein (U) [Mass/Vol] Negative Negative [facility] Protein [Mass/volume] in Ser um or PlasmaOrdered By: Moshe Saini on 10-21-2022 Protein [Mass/Vol] 7.2 g/dL 6.4-8.9 [facility] RBC Auto (Bld) [#/Vol]Ordere d By: Moshe Saini on 10-21-2022 RBC (Bld) [#/Vol] 4.21 10*6/uL 3.60-5.00 [facility] Serum or plasma albumin/glob ulin mass ratioOrdered By: Moshe Saini on 10-21-2022 Albumin/Globulin [Mass ratio] 1.7 {ratio} [facility] Serum or plasma anion gap de terminationOrdered By: Moshe Saini on 10-21-2022 Anion gap [Moles/Vol] 10.7 mmol/L 6.0-15.0 [facility] Sodium [Moles/volume] in Ser um or PlasmaOrdered By: Moshe Saini on 10-21-2022 Sodium [Moles/Vol] 136 mmol/L 136-145 [facility] Specific gravity Auto test s trip (U) [Rel density]Ordered By: Moshe Saini on 10-21-2022 Specific gravity (U) [Rel density] 1.007 1.001-1.030 [facility] Urea nitrogen [Mass/volume] in Serum or PlasmaOrdered By: Moshe Saini on 10-21-2022 Urea nitrogen [Mass/Vol] 22 mg/dL 7-25 [facility] Urine clarity by refractomet ry automatedOrdered By: Moshe Saini on 10-21-2022 Clarity Refractometry automated (U) Clear Clear [facility] Urine glucose measurement by automated test strip (mass/volume)Ordered By: Moshe Saini on 10-21-2022 Glucose Auto test strip (U) [Mass/Vol] Normal mg/dL Normal [facility] Urine hemoglobin detection b y automated test stripOrdered By: Moshe Saini on 10-21-2022 Hemoglobin Auto test strip Ql (U) Negative Negative [facility] Urine leukocyte esterase det ection by automated test stripOrdered By: Moshe Saini on 10-21-2022 Leukocyte esterase Auto test strip Ql (U) Negative Negative [facility] Urobilinogen Auto test strip (U) [Mass/Vol]Ordered By: Moshe Saini on 10-21-2022 Urobilinogen (U) [Mass/Vol] Normal mg/dL Normal [facility] WBC Auto (Bld) [#/Vol]Ordere d By: Moshe Saini on 10-21-2022 WBC (Bld) [#/Vol] 8.4 10*3/uL 3.8-11.6 [facility] pH Auto test strip (U)Ordere d By: Moshe Saini on 10-21-2022 pH (U) 6.0 [pH] 5.0-9.0 [facility] XR HIPS COLUMBA 3_4V WO PELVISon 05-19-2022 XR HIPS COLUMBA 3_4V WO PELVIS EXAMINATION: XR HIPS COLUMBA 3_4V WO PELVIS HISTORY: Pain in right hip joint COMPARISON: No relevant comparison available. FINDINGS: RIGHT FINDINGS: BONES: Normal. No significant arthropathy or acute abnormality. SOFT TISSUES: Negative. No visible soft tissue swelling. OTHER: Negative. LEFT FINDINGS: BONES: No acute fracture or dislocation. Moderate joint space narrowing with marginal osteophyte formation SOFT TISSUES: Negative. No visible soft tissue swelling. OTHER: Negative. IMPRESSION: RIGHT CONCLUSION: Normal LEFT CONCLUSION: Moderate osteoarthritis Electronically authenticated by: EMI BROWN Date: 2022-05-19 07:12 Normal [facility] MG MAMM SCREEN 3D COLUMBA CADon 01-27-2022 MG MAMM SCREEN 3D COLUMBA CAD Patient: XUAN IRBY Exam Date: 01/27/2022 : 1965 Gender:F Ordering : DR LEO MATUTE Admission #: [id number] Family : Order #: [id number] CLICK HERE TO VIEW EXAM RADIOLOGY REPORT PROCEDURE: MAMMOGRAM SCREENING 3D BILATERAL CAD COMPARISON: MG MAMM SCREEN 3D COLUMBA CAD, 01/21/2021. MG MAMM SCREEN COLUMBA W CAD, 01/16/2020. INDICATIONS: Screening mammography Calculator Name NCI Breast Cancer Risk Assessment Tool 5 Year Breast Cancer Risk 0.80% Lifetime Breast Cancer Risk 5.50% Personal Breast Cancer No Personal Ovarian Cancer No Treatments None Family Cancers Mother with ovarian cancer at age 40; Mother with colon cancer at age 60; Father with lung cancer at age 70. LOCATION: [facility] BREAST COMPOSITION: Extremely dense, which lowers the sensitivity of mammography. FINDINGS: DIAGNOSTIC CATEGORY 1--NEGATIVE. RIGHT BREAST: No significant suspicious finding. No significant change has occurred. LEFT BREAST: No significant suspicious finding. No significant change has occurred. RECOMMENDATIONS: ROUTINE MAMMOGRAM AND CLINICAL EVALUATION IN 12 MONTHS. PLEASE NOTE: A NORMAL MAMMOGRAM DOES NOT EXCLUDE THE POSSIBILITY OF BREAST CANCER. A CLINICALLY SUSPICIOUS PALPABLE LUMP SHOULD BE BIOPSIED. Dictated by: Marcellus Ross M.D. on 01/28/2022 at 14:11 Approved by: Marcellus Ross M.D. on 01/28/2022 at 14:14 Normal [facility] MRI LSPINE WO CONon 08-27-19 MRI LSPINE WO CON EXAMINATION: MRI LSPINE WO CON HISTORY: Degeneration of lumbosacral intervertebral disc COMPARISON: 08/09/2021 TECHNIQUE: A variety of imaging planes and parameters were utilized for visualization of suspected pathology. FINDINGS: For the purposes of numbering, sagittal T2 image # 8 extends from the T9 vertebral body superiorly to the S3 level inferiorly. PARASPINAL AREA: Normal with no visible mass. BONES: No acute fracture or bone edema. 1.6 cm anterolisthesis of L5 in relation to S1 with interbody fusion of the overlapping vertebral bodies. CORD/CAUDA EQUINA: Normal caliber, contour, and signal intensity. DISC LEVELS: 12-L1: No significant disc/facet abnormality, spinal stenosis, or foraminal stenosis. L1-L2: No significant disc/facet abnormality, spinal stenosis, or foraminal stenosis. L2-L3: Early degenerative disc disease is present without focal protrusion or neural impingement. L3-L4: No significant disc/facet abnormality, spinal stenosis, or foraminal stenosis. L4-L5: No significant disc/facet abnormality, spinal stenosis, or foraminal stenosis. L5-S1: 1.6 cm anterolisthesis of L5 in relation S1, chronic with intervertebral fusion of the overlapping L5 and S1 vertebral bodies. Bilateral facet osteoarthropathy. No central canal stenosis. Moderate bilateral foraminal stenosis IMPRESSION: 1.6 cm chronic anterolisthesis of L5 on S1 with interbody fusion of the overlapping vertebral bodies. This results in moderate bilateral foraminal stenosis Electronically authenticated by: EMI BROWN Date: 2021-08-26 16:56 Normal [facility] Vital Signs Date Time Vital Sign Value Performing Clinician Facility 01-31-2024 [id number] Body mass index (BMI) [Ratio] 31.44 kg/m2 Leo Matute MD Work Phone: [facility] 01-31-2024 10:040 Body weight 73.03 kg Leo Matute MD Work Phone: [facility] 01-31-2024 10:28-040 Diastolic blood pressure 82 mm[Hg] Leo Matute MD Work Phone: [facility] 01-31-2024 10:28-0400 Systolic blood pressure 122 mm[Hg] Leo Matute MD Work Phone: [facility] 11-10-2023 15:41-0400 Body height 154.94 cm MD Lillian Cowan Work Phone: [facility] 11-10-2023 15:41-0400 Body mass index (BMI) [Ratio] 30.4 kg/m2 MD Lillian Cowan Work Phone: [facility] 11-10-2023 15:41-0400 Body weight 73 kg MD Lillian Cowan Work Phone: [facility] 04-21-2023 15:30-0500 Body height 154.94 cm Moshe Darryl Other [employer] Other 04-21-2023 15:30-0500 Body mass index (BMI) [Ratio] 30.42 kg/m2 Moshe Saini Other [employer] Other 04-21-2023 15:30-0500 Body weight 73.03 kg Moshe Mcmanusley Other [employer] Other 04-01-2023 09:15-0500 Body height 154.94 cm Lillian Cowan Other [employer] Other 04-01-2023 09:15-0500 Body mass index (BMI) [Ratio] 30.49 kg/m2 Lillian Cowan Other [employer] Other 04-01-2023 09:15-0500 Body weight 73.21 kg Lillian Cowan Other [employer] Other 04-01-2023 09:15-0500 Diastolic blood pressure 82 mm[Hg] Lillian Cowan Other [employer] Other 04-01-2023 09:15-0500 Systolic blood pressure 128 mm[Hg] Lillian Cowan Other [employer] Other 12-21-2022 09:00-0400 Body height 154.94 cm Lillian Cowan Other [employer] Other 12-21-2022 09:00-0400 Body mass index (BMI) [Ratio] 30.95 kg/m2 Lillian Cowan Other [employer] Other 12-21-2022 09:00-0400 Body weight 74.3 kg Lillian Cowan Other [employer] Other 12-21-2022 09:00-0400 Diastolic blood pressure 86 mm[Hg] Lillian Cowan Other [employer] Other 12-21-2022 09:00-0400 Respiratory rate 12 /min Lillian Cowan Other [employer] Other 12-21-2022 09:00-0400 Systolic blood pressure 121 mm[Hg] Lillian Cowan Other [employer] Other 12-16-2022 08:15-0400 Body height 154.94 cm Moshe Saini Other [employer] Other 12-16-2022 08:15-0400 Body mass index (BMI) [Ratio] 31.17 kg/m2 Moshe Saini Other [employer] Other 12-16-2022 08:15-0400 Body weight 74.84 kg Moshe Saini Other [employer] Other 11-03-2022 13:55-0400 Diastolic blood pressure 71 mm[Hg] MD Lillian Cowan Work Phone: [facility] 11-03-2022 13:55-0400 Heart rate 75 /min MD Lillian Cowan Work Phone: [facility] 11-03-2022 13:55-0400 Respiratory rate 16 /min MD Lillian Cowan Work Phone: [facility] 11-03-2022 13:55-0400 SaO2% (BldA) [Mass fraction] 93 % MD Lillian Cowan Work Phone: [facility] 11-03-2022 13:55-0400 Systolic blood pressure 118 mm[Hg] MD Lillian Cowan Work Phone: [facility] 11-03-2022 11:52-0400 Inhaled oxygen flow rate 1.5 L/min MD Lillian Cowan Work Phone: [facility] 11-03-2022 10:37-0400 Body temperature 98.4 [degF] MD Lillian Cowan Work Phone: [facility] 11-03-2022 08:32-0400 Body height 152.4 cm MD Lillian Cowan Work Phone: [facility] 11-03-2022 08:32-0400 Body mass index (BMI) [Ratio] 32.7 kg/m2 MD Lillian Cowan Work Phone: [facility] 11-03-2022 08:32-0400 Body weight 76 kg MD Lillian Cowan Work Phone: [facility] 10-22-2022 15:30-0400 Body height 154.94 cm Lillian Cowan Other [facility] [employer] Other 10-22-2022 15:30-0400 Body mass index (BMI) [Ratio] 31.74 kg/m2 Lillian Cowan Other [facility] [employer] Other 10-22-2022 15:30-0400 Body weight 76.2 kg Lillian Cowan Other [employer] [facility] [employer] Other 10-22-2022 15:30-0400 Diastolic blood pressure 86 mm[Hg] Lillian Cowan Other [employer] Other 10-22-2022 15:30-0400 Systolic blood pressure 136 mm[Hg] Lillian Cowan Other [employer] Other 10-14-2022 09:00-0400 Body height 154.94 cm Moshe Darryl Other [employer] Other 10-14-2022 09:00-0400 Body mass index (BMI) [Ratio] 31.17 kg/m2 Moshe [employer] Other [employer] Other 10-14-2022 09:00-0400 Body weight 74.84 kg Moshe Darryl Other [employer] Other 08-31-2022 15:45-0400 Body height 154.94 cm Moshe Darryl Other [employer] Other 08-04-2022 09:05-0400 Diastolic blood pressure 95 mm[Hg] MD Lillian Cowan Work Phone: [facility] 08-04-2022 09:05-0400 Heart rate 68 /min MD Lillian Cowan Work Phone: [facility] 08-04-2022 09:05-0400 Respiratory rate 18 /min MD Lillian Cowan Work Phone: [facility] 08-04-2022 09:05-0400 SaO2% (BldA) [Mass fraction] 99 % MD Lillian Cowan Work Phone: [facility] 08-04-2022 09:05-0400 Systolic blood pressure 153 mm[Hg] MD Lillian Cowan Work Phone: [facility] 08-04-2022 07:29-0400 Body height 152.4 cm MD Lillian Cowan Work Phone: [facility] 08-04-2022 07:29-0400 Body weight 74.84 kg MD Lillian Cowan Work Phone: [facility] 07-13-2022 17:00-0400 Body height 154.94 cm Moshe Mcmanusley Other [facility] [employer] Other 07-13-2022 17:00-0400 Body mass index (BMI) [Ratio] 30.98 kg/m2 Moshe Mcmanusley Other [facility] [employer] Other 07-13-2022 17:00-0400 Body weight 74.39 kg Moshe Mcmanusley Other [facility] [employer] Other 06-23-2022 09:08-0400 Diastolic blood pressure 82 mm[Hg] MD Lillian Cowan Work Phone: [facility] 06-23-2022 09:08-0400 Heart rate 78 /min MD Lillian Cowan Work Phone: [facility] 06-23-2022 09:08-0400 Respiratory rate 20 /min MD Lillian Cowan Work Phone: [facility] 06-23-2022 09:08-0400 SaO2% (BldA) [Mass fraction] 100 % MD Lillian Cowan Work Phone: [facility] 06-23-2022 09:08-0400 Systolic blood pressure 167 mm[Hg] MD Lillian Cowan Work Phone: [facility] 06-23-2022 07:30-0400 Body height 152.4 cm MD Lillian Cowan Work Phone: [facility] 06-23-2022 07:30-0400 Body weight 74.84 kg MD Lillian Cowan Work Phone: [facility] 06-10-2022 15:30-0500 Body height 154.94 cm Moshe Saini Other [employer] Other 06-10-2022 15:30-0500 Body mass index (BMI) [Ratio] 30.98 kg/m2 Moshe Saini Other [employer] Other 06-10-2022 15:30-0500 Body weight 74.39 kg Moshe Saini Other [employer] Other 05-18-2022 16:30-0500 Body height 154.94 cm Lillian Cowan Other [employer] Other 05-18-2022 16:30-0500 Body mass index (BMI) [Ratio] 30.98 kg/m2 Lillian Cowan Other [employer] Other 05-18-2022 16:30-0500 Body weight 74.39 kg Lillian Cowan Other [employer] Other 05-18-2022 16:30-0500 Diastolic blood pressure 88 mm[Hg] Lillian Cowan Other [employer] Other 05-18-2022 16:30-0500 SaO2% (BldA) [Mass fraction] 99 % Lillian Cowan Other [employer] Other 05-18-2022 16:30-0500 Systolic blood pressure 162 mm[Hg] Lillian Cowan Other [employer] Other 09-11-2021 16:00-0400 Body height 154.94 cm Sergio Cowan Other [employer] Other 09-11-2021 16:00-0400 Body mass index (BMI) [Ratio] 31.55 kg/m2 Sergio Cowan Other [employer] Other 09-11-2021 16:00-0400 Body weight 75.75 kg Sergio Cowan Other [employer] Other Encounters Encounter Date Encounter Type Care Provider Facility Start: 01-31-2024 End: 01-31-2024 Bamboo flowsheet Leo Matute MD Work Phone: [facility] Start: 01-31-2024 End: 01-31-2024 Bamboo flowsheet Leo Matute MD Work Phone: [facility] Start: 01-31-2024 End: 01-31-2024 Patient encounter procedure Leo Matute MD Work Phone: [facility] Start: 01-31-2024 End: 01-31-2024 Periodic preventive med est patient 40-64yrs Leo Matute MD Work Phone: [facility] Comment on above: Well woman exam with routine gynecological exam; Cervical cancer screening; Screening for HPV (human papillomavirus); Other screening mammogram Start: 11-10-2023 End: 11-10-2023 ambulatory MD Lillian Cowan Work Phone: [facility] Work Phone: Start: 11-10-2023 End: 11-10-2023 Patient encounter procedure MD Lillian Cowan Work Phone: [facility] Work Phone: Start: 04-27-2023 End: 04-27-2023 ambulatory Moshe Saini Other [employer] Other Start: 04-27-2023 Telephone encounter Moseh BROOKS [facility] Start: 04-23-2023 End: 04-23-2023 ambulatory Lillian Cowan Other [employer] Other Start: 04-23-2023 Telephone encounter Lillian Cowan [facility] Start: 04-21-2023 Office outpatient vi sit 15 minutes Moshe Saini [facility] Start: 04-21-2023 End: 04-21-2023 Patient encounter procedure MD Lillian Cowan Work Phone: [facility] Start: 04-21-2023 End: 04-21-2023 ambulatory MD Lillian Cowan Work Phone: [facility] Work Phone: Start: 04-01-2023 End: 04-01-2023 ambulatory Lillian Cowan Other [employer] Other Start: 04-01-2023 Office outpatient vi sit 25 minutes Lillian Cowan [facility] Start: 01-20-2023 End: 01-20-2023 ambulatory Moshe Saini Other [employer] Other Start: 01-20-2023 Postop follow up vis it related to original px Moshe Darryl [facility] Start: 12-23-2022 End: 12-23-2022 ambulatory Lillian Cowan Other [employer] Other Start: 12-23-2022 Telephone encounter Lillian Cowan [facility] Start: 12-21-2022 End: 12-21-2022 ambulatory Lillian Cowan Other [employer] Other Start: 12-21-2022 Encounter for genera l adult medical examination without abnormal findings Lillian Cowan [facility] Start: 12-21-2022 Periodic preventive med est patient 40-64yrs Lillian Cowan [facility] Start: 12-16-2022 End: 12-16-2022 ambulatory Moshe Saini Other [employer] Other Start: 12-16-2022 Postop follow up vis it related to original px Moshe Darryl [facility] Start: 11-23-2022 End: 11-23-2022 ambulatory Moshe Saini Other [employer] Other Start: 11-23-2022 Telephone encounter Moshe BROOKS [facility] Start: 11-16-2022 End: 11-16-2022 ambulatory Moshe Darryl Other [employer] Other Start: 11-16-2022 Postop follow up vis it related to original px Moshe Saini [facility] Start: 11-05-2022 End: 11-05-2022 ambulatory Moshe Saini Other [employer] Other Start: 11-05-2022 Telephone encounter Moshe BROOKS [facility] Start: 11-03-2022 End: 11-03-2022 Admission to same day surgery center MD Lillian Cowan Work Phone: [facility] [place] Start: 10-22-2022 End: 10-22-2022 ambulatory Lillian Cowan Other [employer] Other Start: 10-22-2022 Encounter for other preprocedural examination Lillian Cowan [facility] Start: 10-22-2022 Office outpatient vi sit 25 minutes Lillian Cowan [facility] Start: 10-21-2022 End: 10-21-2022 ambulatory MD Lillian Cowan Work Phone: [facility] Work Phone: Start: 10-21-2022 End: 10-21-2022 Patient encounter procedure MD Lillian Cowan Work Phone: [facility] Work Phone: Start: 10-14-2022 End: 10-14-2022 ambulatory Moshe Saini Other [employer] Other Start: 10-14-2022 Office outpatient vi sit 25 minutes Moshe Saini [facility] Start: 10-05-2022 End: 10-05-2022 ambulatory Moshe Saini Other [employer] Other Start: 10-05-2022 Telephone encounter Moshe Bowman [facility] Start: 09-23-2022 End: 09-23-2022 ambulatory MD Lillian Cowan Work Phone: [facility] Work Phone: Start: 09-23-2022 End: 09-23-2022 Patient encounter procedure MD Lillian Cowan Work Phone: [facility] [place] Work Phone: Start: 08-31-2022 End: 08-31-2022 ambulatory Moshe Saini Other [employer] Other Start: 08-31-2022 Office outpatient vi sit 25 minutes Moshe Saini [facility] Start: 08-04-2022 (Procedure) Isai Harper [facility] Start: 08-04-2022 End: 08-04-2022 Admission to same day surgery center MD Lillian Cowan Work Phone: [facility] Work Phone: Start: 08-04-2022 End: 08-04-2022 ambulatory MD Lillian Cowan Work Phone: [facility] Work Phone: Start: 07-13-2022 End: 07-13-2022 ambulatory Moshe Saini Other [employer] Other Start: 07-13-2022 Office outpatient vi sit 15 minutes Moshe Saini [facility] Start: 06-26-2022 End: 06-26-2022 ambulatory Moshe Saini Other [employer] Other Start: 06-26-2022 Telephone encounter Moshe Bowman Client Relations Specialist Start: 06-23-2022 (Procedure) Isai Harper [facility] Start: 06-23-2022 End: 06-23-2022 Admission to same day surgery center MD Lillian Cowan Work Phone: [facility] Work Phone: Start: 06-23-2022 End: 06-23-2022 ambulatory MD Lillian Cowan Work Phone: [facility] Work Phone: Start: 06-11-[address] NICK GARSIA . Faci lity:H1 Start: 06-10-2022 End: 06-10-2022 ambulatory Moshe Saini Other [employer] Other Start: 06-10-2022 Office outpatient vi sit 25 minutes Moshe Saini [facility] Start: 05-19-2022 End: 05-19-2022 ambulatory Lillian Cowan Other [employer] Other Start: 05-19-2022 Telephone encounter Lillian Cowan [facility] Start: 05-18-2022 End: 05-19-[address] LLILIAN COWAN [employer] Other Start: 05-18-2022 Office outpatient vi sit 15 minutes Lillian Cowan [facility] Start: 04-09-2022 End: 04-10-[address] LILLIAN COWAN Facility:[facility]1 Start: 03-24-2022 End: 03-24-[address] NICK GARSIA . Facility:[facility] Start: 03-11-2022 End: 03-12-[address] NICK GARSIA . Facility:[facility] Start: 01-27-2022 End: 01-27-[address] LEO MATUTE Facility:[facility]1 Start: 01-23-2022 ambulatory MELISSA ARLENE . Facili ty:H1 Start: 10-31-2021 End: 11-01-2021 ambulatory MELISSA ARLENE . Facility:[facility] Start: 10-03-2021 End: 10-03-2021 ambulatory MELISSA ARLENE . Facility:[facility] Start: 09-26-2021 End: 09-27-2021 ambulatory MELISSAMARGARITO MCALLISTER . Facility:[facility] Start: 09-11-2021 End: 09-11-2021 ambulatory Sergio Cowan Other [facility] Other Start: 09-11-2021 Office outpatient ne w 30 minutes Sergio Cowan [facility] Start: 08-26-2021 End: 08-27-[address] EMI BROWN Facility:[facility]1 Start: 08-06-2021 Adult health examination Elkin Saini Other [facility] Other Procedures Date Procedure Procedure Detail Performing Clinician Start: 11-10-2023 Plain X-ray of left hip MD Lillian Cowan Work Phone: Start: 04-21-2023 Plain X-ray of left hip MD Lillian Cowan Work Phone: Start: 01-29-2023 Mammography Leo rainey MD Work Phone: Start: 11-03-2022 Revision of left tot al hip arthroplasty MD Lillian Cowan Work Phone: Start: 11-03-2022 Plain X-ray of left hip MD Lillian Cowan Work Phone: Start: 09-23-2022 MRI of left hip MD Shiv Cowan Work Phone: Start: 08-04-2022 Procedure on hip MD Gavi Cowan Work Phone: Start: 06-23-2022 Procedure on hip MD Gavi Cowan Work Phone: Start: 12-20-2020 Microscopic observat ion [Identifier] in Cervix by Cyto stain Leo Matute MD Work Phone: Start: 07-24-2014 Screening mammography Chip Saini Other Plan of Treatment Date Care Activity Detail Author Start: 01-31-2024 End: 03-27-2025 DBT Breast - bilateral screening Bilateral screening mammogram with tomosynthesis Imaging Routine Other screening mammogram Expected: 01/31/2024, Expires: 03/27/2025 [facility] Work Phone: Comment on above: Expected: 01/31/2024 , Expires: 03/27/2025 Start: 01-31-2024 End: 01-31-2024 Patient encounter procedure 01/31/2024 10:30 AM EDT Office Visit [facility] [address] [place] [id number] Leo Matute MD [address] [place] [address] Well woman exam with routine gynecological exam; Cervical cancer screening; Screening for HPV (human papillomavirus); Other screening mammogram [facility] Comment on above: Well woman exam with routine gynecological exam; Cervical cancer screening; Screening for HPV (human papillomavirus); Other screening mammogram Start: 01-30-2024 Screening for malign ant neoplasm of breast Mammogram [facility] Start: 12-21-2023 Screening for malign ant neoplasm of cervix [facility] Start: 12-12-2023 Influenza vaccination Influenza Vacc ine (#1) [facility] Start: 11-03-2022 [facility] Start: 11-03-2022 Hospital admission [facility] Start: 11-02-2022 [facility] Start: 08-04-2022 [facility] Start: 06-23-2022 [facility] Start: 1997 Screening for malign ant neoplasm of cervix HPV/Cotest [facility] Start: 1965 Screening for malign ant neoplasm of colon [facility] IGP, APT HPV,RFX 16/18,45 IGP, APT HPV,RFX 16/18,45 Lab Routine Cervical cancer screening Screening for HPV (human papillomavirus) Ordered: 01/31/2024 [facility] Comment on above: Ordered: 01/31/2024 Patient Education 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 purified surface antigen) Moshe Darryl Other [employer] Other 03-01-2022 Influenza, injectabl e, [place] Canine Kidney, preservative free, quadrivalent Leo Matute MD Work Phone: [facility] 03-01-2022 SARS-CoV-2, Unspecified Jasmin Matute MD Work Phone: [facility] 03-01-2022 influenza, injectabl e, quadrivalent, preservative free Lillian Cowan Other [facility] 03-01-2022 influenza virus vaccine, unspecified formulation Leo Matute MD Work Phone: [facility] Healthcare Payers Date Payer Category Payer Self-pay [id number] 2022 [facility] Health Insurance [facility] [id number] 1967 Unknown [id number] [id number] .2.593 1967 Unknown [id number] 2.16.840.1.191483.3.579 .2.593 1967 Unknown [id number] 2.16.840.1.892632.3.579 .2.593 1967 Unknown [id number] 2.16.840.1.929543.3.579 .2.593 1967 Unknown [id number] 2.16.840.1.929746.3.579 .2.593 1967 Unknown [id number] 2.16.840.1.195045.3.579 .2.593 1967 Unknown [id number] 2.16.840.1.195000.3.579 .2.593 1967 Unknown [id number] 2.16.840.1.800012.3.579 .2.593 1967 Unknown [id number] 2.16.840.1.674915.3.579 .2.593 1967 Unknown [id number] 2.16.840.1.757685.3.579 .2.593 1967 Unknown [id number] 2.16.840.1.972999.3.579 .2.593 1959 Unknown [id number] [id number] 1959 Unknown [id number] [id number] Unknown [id number] 2.16.840.1.762876.3.579 .2.531 Unknown [id number] [id number] .2.531 Worker's Compensation [facility] [id number] Social History Date Type Detail Facility Start: 01-26-2024 End: 01-31-2024 Sex Assigned At [facility] [employer] Other Start: 06-23-2022 End: 01-14-2023 Tobacco smoking status OHIS Ex-smoker (finding) [facility] Start: 1965 Sex Assigned At Female F [facility] Start: 04-12-1984 End: 04-12-1993 History of tobacco use Current smoker [facility] Start: 04-12-1984 End: 04-12-1993 History of tobacco use Cigarette Smoker [facility] Start: 01-14-2023 End: 01-31-2024 Cigarettes smoked current (pack per day) - Reported 1 [facility] Start: 01-14-2023 Tobacco use and exposure Smokeless tobacco non-user [facility] Start: 01-26-2024 End: 01-31-2024 Alcoholic beverage intake Ex-drinker (finding) [facility] Start: 10-27-2022 Alcohol Comment Caffeine intak e: 2-3 cups per day tea [facility] Start: 1965 Sex assigned at Not on file N [facility] Medical Equipment Procedure Code Equipment Code Equipment Origin al Text Equipment Identifier Dates Minimally invasive revision of total replacement of hip Coated hip femur prosthesis, modular [id number] FDA Start: 11-03-2022 Minimally invasive revision of total replacement of hip Ceramic femoral head prosthesis [id number] FDA Start: 11-03-2022 Minimally invasive revision of total replacement of hip Acetabular shell [id number] FDA Start: 11-03-2022 Minimally invasive revision of total replacement of hip Orthopaedic bone screw, non-bioabsorbable, sterile [id number] FDA Start: 11-03-2022 Minimally invasive revision of total replacement of hip Non-constrained polyethylene acetabular liner [id number] FDA Start: 11-03-2022 Goals Date Patient Goal Desired Activity /State Clinical Notes 09-11-2021 to 01-31-2024 Leo Matute MD - 01/31/2024 10:30 AM EDT Note Date & Type Note Facility 01-31-2024 History of Presen t illness Narrative Images from the original note were not included. Leo Matute MD Obstetrics and Gynecology Patient: Xuan Irby, : 1965 (59 y.o.) DOS 01/31/24 Exam Date: 01/31/2024 HPI: Yearly exam She is well No bleeding or pain Visit Vitals BP 122/82 Wt 161 lb BMI 31.44 kg/m OB Status Postmenopausal Smoking Status Former BSA 1.76 m OB History Para Term AB Living 2 1 1 0 0 1 SAB IAB Ectopic Multiple Live Births 0 0 0 0 1 # Outcome Date GA Lbr Bor/2nd Weight Sex Type Anes PTL Lv 2 1 Term Obstetric Comments Pap: 12/31-Neg LIBIA: HPV Neg Mammo: 01/29/23-Neg ([facility]) Menopausal Medication and Allergies Medication Documentation Review Audit Reviewed by Marielena Vance MA ([employer]) on 01/31/24 at 1031 Medication Order Taking? Sig Documenting Provider Last Dose Status atorvastatin (Lipitor) 20 MG tablet [id number] Yes Leo Matute MD Active calcium acetate (Phoslo) 667 MG capsule [id number] Take by mouth 3 (three) times a day with meals. Historical ProviderMD Active FLUoxetine (PROzac) 20 MG capsule [id number] Yes .COMPLEX Leo Matute MD Active glucosamine-chondroitin 500-400 MG tablet [id number] Take 1 tablet by mouth in the morning and 1 tablet in the evening and 1 tablet before bedtime. Historical ProviderMD Active Multiple Vitamins-Minerals (Multivitamin) liquid [id number] Orally Historical ProviderMD Active propranolol LA (Inderal LA) 120 MG 24 hr capsule [id number] take 1 capsule by mouth once daily Wilber Lindsay DO Active Discontinued 01/31/24 1030 Allergies Allergen Reactions Atenolol Srinath Inhibitors Anxiety Past Medical History: Diagnosis Date Hip pain, chronic, left HTN (hypertension) (CMS/HCC) Migraine headache (CMS/HCC) Past Surgical History: Procedure Laterality Date BUNIONECTOMY Bilateral CYST REMOVAL from throat DILATION AND CURETTAGE FOOT SURGERY OTHER SURGICAL HISTORY goiter removal TOTAL HIP ARTHROPLASTY Left 11/03/2022 VAGINAL DELIVERY Physical Exam: Objective Physical Exam Constitutional: Appearance: Normal appearance. Genitourinary: Vulva normal. No vaginal discharge or bleeding. Right Adnexa: not palpable. Left Adnexa: not palpable. No cervical lesion. Uterus is not enlarged or tender. Breasts: Right: Normal. Left: Normal. Pulmonary: Effort: Pulmonary effort is normal. Abdominal: General: Abdomen is flat. Palpations: Abdomen is soft. Neurological: Mental Status: She is alert. Associated Treatments and Results - ICD-10-CM 1. Well woman exam with routine gynecological exam Z01.419 2. Cervical cancer screening Z12.4 IGP, APT HPV,RFX 16/18,45 3. Screening for HPV (human papillomavirus) Z11.51 IGP, APT HPV,RFX 16/18,45 4. Other screening mammogram Z12.31 Bilateral screening mammogram with tomosynthesis Assessment/Plan Orders Placed This Encounter Procedures Bilateral screening mammogram with tomosynthesis U/S and spot compression if indicated Standing Status: Future Standing Expiration Date: 03/27/2025 Order Specific Question: Reason for exam: Answer: screen Order Specific Question: Is the patient ? Answer: No IGP, APT HPV,RFX 16/18,45 Order Specific Question: Print requisition? 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 They are doing well. Physical exam is benign. She is doing well without complaints in regards to the hip. Still has some back stiffness which can be expected with her spondylolisthesis. Overall very happy with her outcome. Will continue to advance activities and continue conditioning work. May follow-up at the 1 year anniversary for recheck no x-rays Patient is progressing well. Continue physical therapy exercises and DIANE precautions. Instructed to work on strength and stretching exercises. Instructed patient to call with any questions or concerns. [employer] Other 12-21-2023 Evaluation note* Encounter Date Diagnosis Assessment Notes Treatment Notes Treatment Clinical Notes Mar, Hyperlipidemia, unspecified hyperlipidemia type (ICD-10 - E78.5) begin medicine - recheck in 2-3 months Mar, Anxiety, generalized (ICD-10 - F41.1) Discussed referral to family health services for assessment and counseling. She states she doesn't like to drive to [employer]. # given for [facility]. 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 They are doing well. Physical exam is benign with a healthy appearing wound. She has completed physical therapy. She is ready to return to work and is scheduled to go back 01/25/2023. I will plan to see her back at the 6-month anniversary for repeat x-rays She continues to progress. We discussed continued therapy at home for strengthening due to her struggles with walking stairs. She had questions regarding antibiotics for future tattoos or piercings, none are needed. Instructed patient she may return to work as tolerated. We will have her follow-up in 3 months with repeat x-rays or sooner if she feels its necessary. [employer] Other 09-11-2023 Evaluation note* Encounter Date Diagnosis Assessment Notes Treatment Notes Treatment Clinical Notes Dec, Well adult exam (ICD-10 - Z00.00) We have discussed the necessity of following up with PCP regularly as well as specialists, as needed. Discussed F/U with dentistry and optometry at least yearly. Discussed all preventative measures/ cancer screenings as applicable to this patient. Emphasized the importance of a reduced fat, low carb diet to promote heart health and controlled blood sugars. Reviewed social history and ensured patient is safe within the home today. Pt denies any abuse of alcohol, nicotine, caffeine or recreational drugs. I have ensured patient is of stable mental and physical health today. We have discussed appropriate F/U schedule as well as blood work and vaccinations that apply. All questions answered and patient is sent home pleased, without concerns. 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 They are doing well. Physical exam is benign with a healthy appearing wound. She is no longer taking pain medications and has completed anticoagulation without any signs of DVT. She does tell me that she has had some bright red blood in her stool as well as in her urine and I have recommended being evaluated by her PCP for these problems. She denies any other issues and has had normal bowel and bladder function since these episodes. She is not having any abdominal or flank pain denies any hip pain. She is continuing physical therapy at this time. Not ready to return to work at this time but is scheduled to go back 01/25/2023. I will see her back before she is scheduled to go back to work to make sure she is ready no x-rays are needed Patient is progressing well. Continue physical therapy exercises and DIANE precautions. Discussed with patient to continue off work at this time. Instructed patient to call with any questions or concerns. 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 They are doing well. Physical exam is benign with a healthy appearing wound. They are still taking pain medication but we did discuss the weaning process today. They are anticoagulated appropriately without any signs of deep vein thrombosis. We have given an order for outpatient therapy today. I will see them back at the 6-week anniversary from their surgery for reevaluation. No x-rays are needed at that time. Continue posterior hip precautions until next follow-up. Xuan is here for her first follow up visit 2 weeks status post left total hip arthroplasty. She continues to progress and heal routinely. Incision remains clean and dry, no signs of erythema or infection noted. Patient may begin to work on gentle motion exercises as tolerated at home as well as continue with formal physical therapy. Advised patient to continue to ambulate with the assistance of a cane. She may use Tramadol and Tylenol as needed for pain. Patient voiced understanding and is agreeable to treatment plan. We will follow up in 4 weeks time. Nov, Other See orders for this visit as documented in the electronic medical record. [employer] Other 07-13-2023 Evaluation note* Encounter Date Diagnosis Assessment Notes Treatment Notes Treatment Clinical Notes Oct, Preoperative examination (ICD-10 - Z01.818) Pt is in overall good health. Without any major abnormalities found on preop testing, she is cleared to proceed w hip surgery later this month. Oct, Primary osteoarthritis of left hip (ICD-10 - M16.12) Reviewed history, meds and treatment plan. Oct, Lumbar degenerative disc disease (ICD-10 - M51.36) chronic problem. understands it will continue after hip surgery. Oct, Essential hypertension (ICD-10 - I10) well controlled on present med. [employer] Other 07-05-2023 Evaluation note* Encounter Date Diagnosis Assessment Notes Treatment Notes Treatment Clinical Notes Oct, Primary osteoarthritis of left hip (ICD-10 - M16.12) Xuan presents with left hip DJD Complicated by high-grade spondylolisthesis at the L5-S1 level, sacroiliac DJD. At this juncture we have discussed the findings and diagnosis as well as personally reviewed appropriate imaging and performed interpretation of related testing and examination with the patient in office today. Today we have discussed degenerative joint disease of the hip and its treatment. Imaging was explained and discussed with the patient. We discussed recommended conservative therapies including physical therapy, anti-inflammatory medications, and weight loss strategies. We also discussed other treatment options including cortisone injections. I have laid out the course of hip DJD including the end-stage treatment of total joint arthroplasty. The patient recognizes and understands our options and goals and we will move forward with our treatment. After MRI with her ongoing complaints of groin pain with hip motion and weightbearing I do feel that most of her issue is coming from the hip joint itself. We discussed this at length today. At this point I think it is reasonable to move forward total hip arthroplasty and the patient is ready to do this. We will move forward with scheduling and preoperative clearance. I can see patient back for preoperative H&P The patient has been involved in our cooperative treatment plan and agrees to move forward with treatment at this time. The patient has demonstrated all indications for proceeding with total hip replacement. The patient is experiencing severe disabling hip pain which is affecting daily life and ability to ambulate. Conservative means of treatment including NSAIDS and other medication as well as activity modification and gentle exercise have not been effective in relieving symptoms or are not indicated at this time. It is now reasonable to proceed with total hip replacement. Patient given [employer] information handout regarding total hip arthroplasty Oct, Spondylolisthesis, lumbar region (ICD-10 - M43.16) Stable, monitor [employer] Other 05-22-2023 Evaluation note* Encounter Date Diagnosis Assessment Notes Treatment Notes Treatment Clinical Notes August, Primary osteoarthritis of left hip (ICD-10 - M16.12) Xuan presents with left hip DJD Complicated by high-grade spondylolisthesis at the L5-S1 level, sacroiliac DJD. At this juncture we have discussed the findings and diagnosis as well as personally reviewed appropriate imaging and performed interpretation of related testing and examination with the patient in office today. Prior medical notes from Dr. Cummings and history have been reviewed. Today we have discussed degenerative joint disease of the hip and its treatment. Imaging was explained and discussed with the patient. We discussed recommended conservative therapies including physical therapy, anti-inflammatory medications, and weight loss strategies. We also discussed other treatment options including cortisone injections. I have laid out the course of hip DJD including the end-stage treatment of total joint arthroplasty. The patient recognizes and understands our options and goals and we will move forward with our treatment. Initially we did an intra-articular hip injection which did not offer much relief. We then underwent an iliopsoas injection which also did not offer much relief. At this point I think it is reasonable to get MRI for evaluation. We will continue to treat conservatively at this time. Will call with update once MRI is completed The patient has been involved in our cooperative treatment plan and agrees to move forward with treatment at this time. Patient is not improving as expected with time and conservative treatment. An MRI will be necessary to assess for an injury that could require surgical treatment. Patient given prescription for tramadol, pescription for naproxen and acetaminophen was sent into patients pharmacy. Discussed with patient Dr. Saini will call with results of MRI. August, Spondylolisthesis, lumbar region (ICD-10 - M43.16) [employer] Other 04-25-2023 [facility]* Encounter Date Diagnosis Assessment Notes Treatment Notes Treatment Clinical Notes Jul, Primary osteoarthritis of left hip (ICD-10 - M16.12) Xuan presents with left hip DJD Complicated by high-grade spondylolisthesis at the L5-S1 level, sacroiliac DJD. At this juncture we have discussed the findings and diagnosis as well as personally reviewed appropriate imaging and performed interpretation of related testing and examination with the patient in office today. Prior medical notes from Dr. Cummings and history have been reviewed. Today we have discussed degenerative joint disease of the hip and its treatment. Imaging was explained and discussed with the patient. We discussed recommended conservative therapies including physical therapy, anti-inflammatory medications, and weight loss strategies. We also discussed other treatment options including cortisone injections. I have laid out the course of hip DJD including the end-stage treatment of total joint arthroplasty. The patient recognizes and understands our options and goals and we will move forward with our treatment. With her intra-articular hip injection she did not have great relief. And at a initial phase it actually made it worse. Based on the knowledge of this as well as her continued pain with rising from seated position and the nature of her spondylolisthesis I do have some concern for an iliopsoas tendinitis or contracture. I explained her that I would like for her to try an iliopsoas tendon injection to see if that changes anything. She is agreeable and we will get this set up with Dr. Brisa Harper. I will see her back after injection to see if this noted any change The patient has been involved in our cooperative treatment plan and agrees to move forward with treatment at this time. Discussed with patient we will have her schedule with Dr. Brisa Harper for a iliopsoas injection. Jul, Spondylolisthesis, lumbar region (ICD-10 - M43.16) [employer] Other 03-01-2023 Evaluation note* Encounter Date Diagnosis Assessment Notes Treatment Notes Treatment Clinical Notes Jun, Primary osteoarthritis of left hip (ICD-10 - M16.12) Xuan presents with left hip DJD Complicated by high-grade spondylolisthesis at the L5-S1 level, sacroiliac DJD. At this juncture we have discussed the findings and diagnosis as well as personally reviewed appropriate imaging and performed interpretation of related testing and examination with the patient in office today. Prior medical notes from Dr. Cummings and history have been reviewed. Today we have discussed degenerative joint disease of the hip and its treatment. Imaging was explained and discussed with the patient. We discussed recommended conservative therapies including physical therapy, anti-inflammatory medications, and weight loss strategies. We also discussed other treatment options including cortisone injections. I have laid out the course of hip DJD including the end-stage treatment of total joint arthroplasty. The patient recognizes and understands our options and goals and we will move forward with our treatment. At this time we discussed the possibility that her pain could be coming from either her back, her SI joint, or her hip. On her exam today hip motion is only painful at end stage internal rotation. She does have tenderness over her SI joint as well. She has chronic low back pain. We discussed the need to isolate the area where her pain is coming from before offering any interventions. At this time I would recommend an intra-articular hip injection to see what kind of pain relief that provides. Patient should follow-up with me about 3 weeks after injection for discussion The patient has been involved in our cooperative treatment plan and agrees to move forward with treatment at this time. The patient is suffering from degenerative arthritis involving the hip. We discussed the conservative treatment options which can be beneficial in relieving pain, including gentle non-impact motion exercise and non-steroidal anti-inflammator y medication. We discussed the use of occasional intra-articular cortisone injections that can provide pain relief. Patient would like to proceed with hip joint injection with Dr. Brisa Harper (pain management). Jun, Spondylolisthesis, lumbar region (ICD-10 - M43.16) Jun, Other See orders for this visit as documented in the electronic medical record. [employer] Other 02-06-2023 Evaluation note* Encounter Date Diagnosis Assessment Notes Treatment Notes Treatment Clinical Notes May, Pain in right hip (ICD-10 - M25.551) Ongoing issue with lumbar and hip pain for close to a year. Has done injections, PT and had lumbar MRI. Requests referral to Dr. Saini May, Pain in left hip (ICD-10 - M25.552) as above. [employer] Other 12-29-2022 NoteCONSULTATION CONSULTATION DATE: 04/09/2022 HISTORY OF PRESENT ILLNESS: This is a 57-year-old female returning to the clinic status post left SI and left hip bursa injections completed on 03/24/2022. The patient had 99% relief with the SI injection; however, she is still experiencing very isolated left inner groin pain. In review of lumbar x-ray, she has no acute pathology between L1 and L3 besides age related degenerative changes and facet arthropathy. She does state that long walks greatly aggravate her pain. The pain is non-radiating and remains isolated. She does use heat which decreases her pain, as well as diclofenac 50 mg b.i.d. Patient's REVIEW OF SYSTEMS / PAST MEDICAL HISTORY / ALLERGIES and IMAGES have been reviewed and noted in the chart. PHYSICAL EXAM: VITAL SIGNS: Blood pressure is 150/89. Heart rate is 82. Temperature is 96.6. She is 5' tall, weighs 72.3 kg. GENERAL IMPRESSION: Pleasant, appropriate, in no acute distress. FOCUSED EXAM - MUSCULOSKELETAL: Motor is intact, 5/5 bilaterally with good muscle tone to quadriceps and hamstrings. Patient walks with a stable gait, unassisted. Upon applying a psoas stretch in the supine position that reproduces the patient's pain to the left inner groin. BACK: Compression along the lower lumbar facets does not reproduce the patient's symptomatology. No spinal axial pain reproduced. Left Shaun's point mildly tender. Negative FABERs, compression and thigh thrust test. NEUROLOGICAL: Radicular sensory is intact with bilateral patella and Achilles reflexes 2/2. DIAGNOSIS: Left groin pain, left sacroiliitis. PLAN: I discussed the patient's lumbar and pelvis x-ray with her. I do not see any overt pathology radiating from the back, left hip, left SI or bursa that would be a contributing factor to her pain. She has point tenderness over the left hip flexor and again with a psoas stretch. I did refer her to physical therapy and she is in agreement with this. We will see her in two months' time for re-evaluation, and she is to continue her diclofenac.[id number] NoteCONSULTATION CONSULTATION DATE: 03/11/2022 This is a very pleasant 57-year-old female who was a patient of Dr. Mcallister's and transitioned to our care. She has chronic lower back pain and sacroiliitis. Today she complained of left lower back pain with pain radiating to the groin. Her pain is 5 out of 10 at rest and 8 out of 10 with physical activity. She describes it as sharp and vice-like. It is increased with standing and walking. Ascending stairs and walking the dog aggravates her pain. Medication claros, she takes Naprosyn 220 mg b.i.d. which she does get minimal relief. The patient does work at [employer] and covers a lot of surface area during the day but her pain is slowing her down. She denies any falls, injury or vasomotor weakness. She did have a right SI joint injection by Dr. Mcallister this past Fall which mitigated her right hip and back pain. REVIEW OF SYSTEMS, PAST MEDICAL HISTORY, ALLERGIES AND IMAGES: Have been reviewed and noted in the chart. PHYSICAL EXAM: VITAL SIGNS: Blood pressure 160/91, heart rate is 90, temperature is 97.6. Height is 5', weighs 75 kg. GENERAL APPEARANCE: Pleasant, appropriate and in no acute distress. FOCUSED EXAM: BACK: Range of motion is functional in lateral rotation and flexion/extension. Upon facet compression, no reproduction of spinoaxial pain was noted from L1 to L4, mild reproduction from L5 to S1 bilaterally. Shaun's point was nontender to the right, tenderness to the left with radiating pain to the hip and the groin. This is indicative of sacroiliitis. Slight radiation to left anterior thigh along L1-2 distribution. Kaylan's, compression, thigh thrust tests are positive on the left. The left greater trochanteric bursa is edematous and tender to palpation which reproduces the patient's pain symptomatology. MUSCULOSKELETAL: Motor is intact 4 out of 5 bilaterally. Slight motor weakness along the right anterior tibialis. Good muscle tone. Does not use assistive device. NEUROLOGICAL: Radicular sensory is intact. Reflexes are +2 bilaterally. DIAGNOSIS: Left sacroiliitis, left greater trochanteric bursitis, grade 4 spondylolisthesis and lumbar spondylosis. PLAN: We will proceed to authorize for a left SI joint injection as well as left greater trochanteric bursa injection. She is to discontinue the Naprosyn and she will start diclofenac 50 mg b.i.d. The patient will be followed up in the clinic following the procedure and all questions were answered today.[facility] [id number] Evaluation note* Encounter Date Diagnosis Assessment Notes Treatment Notes Treatment Clinical Notes Sep, Spondylolisthesis, lumbar region (ICD-10 - M43.16) I have independently reviewed the MRI of the lumbar spine showing grade 4 spondylolisthesis, canal adequate, foramen adequate. Sep, Greater trochanteric bursitis of right hip (ICD-10 - M70.61) Clinically the patient has sacroiliac pain on the right indicative of sacroiliac inflammation and trochanteric bursitis and a positive Lavon's sign on the right consistent with right hip disease. I talked to the patient in detail and explained I do not believe this is a surgical issue at this point. The patient fully understands and agrees. We will send her to pain management for consideration of injection of the right trochanteric bursa, the right hip, and the right sacroiliac joint. Sep, Arthropathy of right hip (ICD-10 - M16.11) [employer] Other evaluation noteNo InformationNort [employer] Other Evaluation noteNo assessment information available [facility] Work Phone: Evaluation note* Diagnosis Onset Date Resolution Status Presence of left artificial hip joint acute [facility] Work Phone: Evaluation note* Diagnosis Well woman exam with routine gynecological exam Routine gynecological examination Cervical cancer screening Screening for malignant neoplasm of the cervix Screening for HPV (human papillomavirus) Special screening examination for human papillomavirus (HPV) Other screening mammogram documented in this encounter [facility] - [facility]orted* Type Description Date Medical History hypertension Surgical History bunionectomy Surgical History D&C Hospitalization History See Above [employer] Other History general Narrative - Reported* Type Description Date Medical History Tremor Medical History Degenerative disc disease at L5- S1 level Medical History Lumbar back pain wit h radiculopathy affecting left lower extremity Medical History Cervical lymphadenopathy Medical History Pain in right knee Medical History Essential hypertension Surgical History bunionectomy Surgical History D&C Hospitalization History See Above [employer] Other Hisvdjp general Narrative - Reported* Type Description Date Medical History Tremor Medical History Degenerative disc disease at L5- S1 level Medical History Lumbar back pain wit h radiculopathy affecting left lower extremity Medical History Cervical lymphadenopathy Medical History Pain in right knee Medical History Essential hypertension Surgical History bunionectomy Surgical History D&C Surgical History Goitre removed from throat Hospitalization History See Above [employer] Other Hisqxcc general Narrative - Reported* Type Description Date Medical History Tremor Medical History Degenerative disc disease at L5- S1 level Medical History Lumbar back pain wit h radiculopathy affecting left lower extremity Medical History Cervical lymphadenopathy Medical History Pain in right knee Medical History Essential hypertension Surgical History bunionectomy Surgical History D&C Surgical History Goitre removed from throat Surgical History [facility] 11/03/22 Hospitalization History See Above [employer] Other Hospital Discharge instructions Additional Instructions Total hip arthroplasty discharge instructions Maintain all current orders as you are doing after discharge from the hospital. You are weightbearing as tolerated with posterior hip precautions which will continue for 8 weeks after surgery. Continue to ambulate regularly to help recover as well as prevent blood clots. Take your medications as prescribed. You should attempt to wean from pain medications (oxycodone) as soon as possible. Oxycodone is a narcotic pain medication and should be used for severely(7-10/10) rated pain. Tramadol is another pain medication which is nonnarcotic and should be used for moderately(4-7/10) rated pain. You may take Tylenol 1000 mg every 8 hours for moderate to low related pain. Take aspirin 81 mg twice daily to prevent blood clots. Flexeril is a muscle relaxer which you can use for muscle spasms which you may have, it is a 10 mg pill which you can half if it is too strong. Colace is a stool softener as pain medications can cause constipation. Doxycycline is an antibiotic you should take until your prescription is completed. You should maintain a healthy diet as well as appropriate protein intake along with taking a daily multivitamin. Continue performing exercises as instructed by physical therapy. You may remove the Srinath wrap from your leg the day after your surgery. Maintain your postoperative incisional dressing for 7 to 10 days after surgery. You may bathe with this on but try to keep it as dry as possible. After dressing removal there will be skin glue which you should let wear off and do not pick off. You may shower over the skin glue. Follow-up with Dr. Saini as scheduled. Call office with any questions or concerns or if you have any fever, chills, or drainage from your wound. Dr. Moshe Saini [facility] [address] [place] [address] [place] [address] [phone] [facility]als [facility] Work Phone: Reason for Referral Reason Evaluate and Treat w ith Injections [facility] Diagnosis 1 Greater trochanteric bursitis of right hip (M70.61) Referral Organization [facility] Referring Provider First Name Sergio Referring Provider Last Name Camryn Referring Provider Specialty Neurologica l Surgery Referred Organization Unknown Facility Referred Provider Dennis Mcallister Referred Provider Specialty Pain Medicin e Referral Priority Routine Reason 06/10/22 Xrays tod ay at [facility] - saw Dr. Nasim Cowan and Dr. Garsia Diagnosis 1 Pain in right hip (M 25.551) Referral Organization [facility] Referring Provider First Name Lillian Referring Provider Last Name Camryn Referring Provider Specialty Family [facility] cine Referred Organization [facility] Referred Provider Moshe Saini Referred Address [address],[place], [place],[address] Referred Provider Specialty Orthopedic S urgery Referral Priority Routine Referral Appointment Date 2022-06-10 General Notes Natalie Betancourt 09:59:55 AM >received today, sent P2P Chief Complaint and Reason for Visit Chief Complaint Left Hip Pain Chief Complaint Left Hip Pain Pain Chief Complaint Pain M16.12 Chief Complaint Pain M16.12 Hip pain Chief Complaint Hip pain Chief Complaint 1 Year Post Op Z96.642 - Presence of left artificial hip joint Reason for Visit Presence of left art ificial hip joint Advance Directives Advance Directive Response Recorded Date/ Time Advance Directives No August 19 3:47pm Advance Directive Response Recorded Date/ Time Advance Directives No August 19 2:47pm Summary Purpose Family History Relationship Condition Age at Onset Recorded Date/T quan father Diabetes mellitus Unknown Malignant neoplasm Unknown Not Specified Malignant neoplasm Unknown Hypertension Unknown brother Diabetes mellitus Unknown No Family History Records Found Additional Source Comments REASON FOR VISIT (unrecogniz ed section and content) Referred Dr Lillian Cowan Lum bar Pain w/RadiculopathyPAIN IN LEGSxrayBilateral Hip Pain*DARRYL PTLEFT INTRA-ARTICULAR HIP JOINT INJECTION /VWORTHO NOTERecheck Bilateral Hips*DARRYL PTLEFT ILIOPSOAS JOINT INJECTION /VWRecheck Bilateral HipsMRI RESULTSMRI ResultsPre-Op Clearanceincision questionsRecheck Left THAquestionsRecheck Left THAWellnesslabsRecheck Left THAhigh chol discussionRecheck Left THAmessageDENTAL APPT Care Teams (unrecognized sec tion and content) Team Status: Active Member Role Status Dates Lillian Cowan MD Primary Care Provider Active Team Status: Inactive Member Role Status Dates Destin Harper MD Attending Provider Active Lillian Cowan MD Primary Care Provider Active Team Status: Inactive Member Role Status Dates Lillian Cowan MD Primary Care Provider Active Destin Harper MD Attending Provider Active Team Status: Inactive Member Role Status Dates Lillian Cowan MD Primary Care Provider Active Moshe Saini DO Attending Provider Active Team Status: Inactive Member Role Status Dates Lillian Cowan MD Primary Care Provider Active Start: November 10, 2023 End: November 10, 2023 Moshe Saini DO Attending Provider Active S tart: November 10, 2023 End: November 10, 2023 Team Status: Active Member Role Status Dates Lillian Cowan MD Primary Care Provider Active Start: November 10, 2023 Moshe Saini DO Attending Provider Active S tart: November 10, 2023 Gold Letterer Relationship Specialty Start Date End Date Lillian Cowan MD [address] [place] [address] PCP - General Family Medicine 09/10/22 Gold Letterer Relationship Specialty Start Date End Date Lillian Cowan MD [address] [place] [address] PCP - General Family Medicine 09/10/22 INFORMATION SOURCE (unrecogn ized section and content) DATE CREATED AUTHOR 08/26/2022 [facility] DATE CREATED AUTHOR 'S JAMILAH ECHEVARRIA 11/13/2023 [facility] Goals (unrecognized section and content) Goals may be documented in a n alternate section FOR RECORDS PERTAINING TO PATIENTS WHO ARE OR HAVE BEEN ENROLLED IN A CHEMICAL DEPENDENCY/SUBSTANCEABUSE PROGRAM, SOME INFORMATION MAY BE OMITTED. This clinical summary was aggregated from multiple sources. Caution should be exercised in using it in the provision of clinical care. This summary normalizes information from multiple sources, and as a consequence, information in this document may materially change the coding, format and clinical context of patient data. In addition, data may be omitted in some cases. CLINICAL DECISIONS SHOULD BE BASED ON THE PRIMARY CLINICAL RECORDS. [facility] [employer] [facility]. provides no warranty or guarantee of the accuracy or completeness of information in this document.
== END 2024-02-01 16:20 | disposition home or self-care (01) ==
LOC: MAMMO 16:19
PROVIDERS: PCP Family Medicine; Visit Provider Obstetrics & Gynecology
DX: Z12.31 Encounter for screening mammogram for malignant neoplasm of breast (principal); Z80.41 Family history of malignant neoplasm of ovary; Z80.0 Family history of malignant neoplasm of digestive organs; Z80.1 Family history of malignant neoplasm of trachea, bronchus and lung
CPT/HCPCS: 77063; 77067

== ENCOUNTER 2024-04-01 08:38 | Outpatient (OUT) | payer OTHER, SELFPAY ==
--- OUTSIDE RECORDS SUMMARY | 2024-04-01 08:42 | XMS_ITS | CCD ---
Author Organization [facility] Care Team Providers Care Maintenance Worker Municipal Name Role Phone Sergio Cowan Unavailable Lillian Cowan Unavailable MD Destin Harper Attending Provider MD Lillian Cowan Primary Care Provider [phone] Moshe Saini Unavailable Destin Harper Unavailable PARAG [...] ., NALLELY Consulting Unavailable GARSIA ., DR NIKC Rhodes Admitting Unavailable GARSIA ., DR NICK [...] Unavailable CAMRYN, DR LILLIAN Cabral Admitting Unavailable JUPITER, DR EMI Au Consulting Unavailable CAMRYN, DR LILLIAN Cabral Consulting Unavailable JUPITER, DR EMI Au Consulting Unavailable CAMRYN, DR LILLIAN Cabral Primary Care Unavailable CAMRYN, DR LILLIAN Cabral Attending Unavailable CAMRYN, DR LILLIAN Cabral Admitting Unavailable COWAN, DR LILLIAN Cabral Consulting Unavailable PRINTY, DR BAILEY Attending Unavailable PRINTY, DR BAILEY Admitting Unavailable ZIEBER, DR MARCELLUS Lai Consulting Unavailable CAMRYN, DR LILLIAN Cabral Primary Care Unavailable PRINTY, DR BAILEY Consulting Unavailable ARLENE ., MELISSA Consulting Unavailable ARLENE ., MELISSA Attending Unavailable ARLENE ., MELISSA Admitting Unavailable CAMRYN, DR LILLIAN Cabral Primary Care Unavailable MD Lillian Cowan Primary Care Provider MD Destin Harper Attending Provider DO Moshe Saini A Attending Provider MD Lillian Cowan Primary Care Provider DO Darryl Moshe A Attending Provider [phone] MD Lillian Cowan Primary Care Provider DO Darryl Moshe A Attending Provider MD Lillian Cowan Primary Care Provider DarrylDO karen Moshe A Attending Provider Moshe Saini Admitting Unavailable Lillian Cowan Primary Care Unavailable Moshe Saini Attending Unavailable Lillian Cowan Primary Care Unavailable Moshe Saini Attending Unavailable Moshe Saini Admitting Unavailable Lillian Cowan MD Primary Care Provider [phone] LEO MATUTE Attending Unavailable Allergies Allergy Classification Reported Allergen(s) Allergy Type Date of Onset Reaction(s) Facility (20 sources) Angiotensin-con verting enzyme inhibitor agent Drug allergy Unknown [facility] Other (10 sources) Angiotensin Converting Enzyme (Srinath) Inhibitors; Translations: [Srinath Inhibitors] Allergy to substance 3 [facility] (11 sources) benazepril Drug Allergy 5 Unknown [facility] Other (4 sources) patient allergy list reviewed by nurse or physicia Propensity to adverse reactions 9 Comment:Done [facility] Other (4 sources) Allergies Reconciled Propensity to adverse reactions Unknown [facility] Other (3 sources) Atenolol Propensity to adverse [...] DO NOT FILL UNTIL 11/02/2022 [facility] # [id number] Oct, Not-Taking/PRN amoxicillin 500 mg oral tablet [...] oral tablet (8 sources) Vitamin D Start: 03-14-202 3 take 1 tablet by mouth once [...] DO NOT FILL UNTIL 11/02/2022 [facility] # [id number] Oct, Active doxycycline hyclate 100 mg oral tablet (1 source) Tetracycline-class Drug Start: 3 take 1 tablet by mouth every twelve hours Doxycycline Hyclate 100 MG 1 tablet Orally Twice a day for 7 days DO NOT FILL UNTIL 11/02/2022 [facility] # [id number] Oct, Active FLUoxetine 20 mg oral capsule [...] 4:13pm Start: 04-01-2023 take 1 capsule by [facility] every twenty-four hours FLUoxetine HCl 10 MG 1 capsule Orally Once a day for 30 day(s) Mar, Active take 1 capsule by [facility] every twenty-four hours FLUoxetine HCl 20 MG 1 capsule Orally Once a day for 30 days Active Glucos Sul 8uwv-Ooh-Ksnkr-C-Mn (Glucosamine Chondroitin) 550-30-1 mg Capsule (5 sources) Start: 10-21-2022 take 1 capsule by mouth once daily in the morning Glucos Sul 3iaz-Zqc-Gcoxf-C-Mn (Glucosamine Chondroitin) 550-30-1 mg Capsule Active 1 CAP PO Every morning October 20, 2022 11:00pm Start: 10-21-2022 take 1 capsule by [facility] once daily in the morning Glucos Sul 2nwn-Xuz-Tgxyi-C-Mn (Glucosamine Chondroitin) 550-30-1 mg Capsule Active 1 [...] DO NOT FILL UNTIL 11/02/2022 [facility] # [id number] Oct, Active 24 hr propranolol hydrochloride 120 [...] DO NOT FILL UNTIL 11/02/2022 [facility] # [id number] Oct, Not-Taking/PRN atenolol 25 mg oral tablet (20 sources) beta-Adrenergic Negrita Atenolol 25 MG Oral for 30 Days Not-Taking/PRN cyclobenzaprine hydrochloride 10 mg oral tablet (20 sources) Muscle Relaxant Start: 10-26-2022 take 0.5-1 tablets by mouth every eight hours as needed Cyclobenzaprine HCl 10 MG 1/2 to 1 tab Orally Every 8 hours for 14 days DO NOT FILL UNTIL 11/02/2022 [facility] # [id number] Oct, Not-Taking/PRN Start: 06-23-2022 End: 11-10-2023 take [...] 2022 3:36pm take 1 capsule by mo uth every eight hours Diclofenac 35 MG 1 [...] 7 days DO NOT FILL UNTIL 11/02/2022 [facility] # [id number] Oct, Not-Taking/PRN Turmeric Root Extract (8 sources) [...] 11-10-2023 XR hip LT min 2V(w/wo pelvis)* [facility] [address] [place] [address] XRay Report Signed Patient: Xuan Irby MR#: [id number] 84 : 1965 Acct:[id number] Age/Sex: 58 / F ADM Date: 11/10/23 Loc: [facility] [place] Room: Type: [facility] Attending Dr: Moshe Saini DO Copies [...] 1601 Signed By: 11/10/23 1601 Normal [facility] XR hip LT min 2V(w/wo pelvis )*on 04-21-2023 XR hip LT min 2V(w/wo pelvis)* [facility] [address] [place] [address] XRay Report Signed Patient: Xuan Irby MR#: [id number] 84 : 1965 Acct:[id number] Age/Sex: 58 / F ADM Date: 04/21/23 Loc: [facility] [place] Room: Type: [facility] Attending Dr: Moshe Saini DO Copies [...] 1619 Signed By: 04/21/23 1619 Normal [facility] XR hip LT min 2V(w/wo pelvis)* [facility] Other XR hip LT min 2V(w/wo pelvis)* [facility] Other XR hip LT min 2V(w/wo pelvis)* [address] [place] [address] [employer] Other XR hip LT min 2V(w/wo pelvis)* [place] [address] [facility] Other XR hip LT min 2V(w/wo pelvis)* XRay Report [facility] Other XR hip LT min 2V(w/wo pelvis)* Signed [facility] Other XR hip LT min 2V(w/wo pelvis)* Patient: Xuan Irby MR#: [id number] [facility] Other XR hip LT min 2V(w/wo pelvis)* 86 [facility] Other XR hip LT min 2V(w/wo pelvis)* : 1965 Acct:[id number] [facility] Other XR hip LT min 2V(w/wo pelvis)* Age/Sex: 58 / F ADM Date: 04/21/23 [facility] Other XR hip LT min 2V(w/wo pelvis)* Loc: [facility] [place] Room: Type: [facility] Other XR hip LT min 2V(w/wo pelvis)* Attending Dr: Moshe Saini DO [facility] Other XR hip LT min 2V(w/wo pelvis)* Copies to: Moshe Saini DO [facility] Other XR hip LT min 2V(w/wo pelvis)* Ordering Provider: Moshe Saini DO [facility] Other XR hip LT min 2V(w/wo pelvis)* Date of Service: 04/21/23 [facility] Other XR hip LT min 2V(w/wo pelvis)* XR/XR hip LT min 2V(w/wo pelvis)*: Primary osteoarthritis of left hip [facility] Other XR hip LT min 2V(w/wo pelvis)* LEFT HIP - 2 views: [facility] Other XR hip LT min 2V(w/wo pelvis)* CLINICAL HISTORY: Status post left DIANE [facility] Other XR hip LT min 2V(w/wo pelvis)* COMPARISON: Left hip 11/03/2022 [facility] Other XR hip LT min 2V(w/wo pelvis)* FINDINGS: Left DIANE without radiographic complication. [facility] Other XR hip LT min 2V(w/wo pelvis)* XR/XR hip LT min 2V(w/wo pelvis)* [facility] Other XR hip LT min 2V(w/wo pelvis)* IMPRESSION: [facility] Other XR hip LT min 2V(w/wo pelvis)* NO EVIDENCE OF HARDWARE COMPLICATION.. [facility] Other XR hip LT min 2V(w/wo pelvis)* Impression dictated by: Nate Marcano Jr., D.O.04/21/2023 4:19 PM [facility] Other XR hip LT min 2V(w/wo pelvis)* Dictation Location: [place] [address] [facility] Other XR hip LT min 2V(w/wo pelvis)* Transcribed By: PWS 04/21/23 [facility] hospital [facility] Other XR hip LT min 2V(w/wo pelvis)* Dictated By: Nate Marcano Jr DO 04/21/23 Critical access hospital [facility] Other XR hip LT min 2V(w/wo pelvis)* Signed By: [facility] Other XR hip LT min 2V(w/wo pelvis)* 04/21/23 Critical access hospital [facility] Other Alanine aminotransferase [En zymatic activity/volume] in Serum or PlasmaOrdered By: Moshe Saini on 10-21-2022 ALT [Catalytic activity/Vol] 10 U/L 7-52 [facility] Albumin [Mass/volume] in Ser um or Plasma by Bromocresol green (BCG) dye binding methoOrdered By: Moshe Saini on 10-21-2022 Albumin BCG dye [Mass/Vol] 4.5 g/dL 3.5-5.7 [facility] Alkaline phosphatase [Enzyma tic activity/volume] in Serum or PlasmaOrdered By: Moshe Saini on 10-21-2022 ALP [Catalytic activity/Vol] 77 U/L 34-104 [facility] Aspartate aminotransferase [ Enzymatic activity/volume] in Serum or PlasmaOrdered By: Moshe Saini on 10-21-2022 AST [Catalytic activity/Vol] 15 U/L 13-39 [facility] Basophils Auto (Bld) [#/Vol] Ordered By: Moshe Saini on 10-21-2022 Basophils (Bld) [#/Vol] 0.1 10*3/uL 0.0-0.2 [facility] Basophils/100 WBC Auto (Bld) Ordered By: Moshe Saini on 10-21-2022 Basophils/100 WBC (Bld) 0.8 % . F [facility] Bilirubin Test strip Ql (U)O rdered By: Moshe Saini on 10-21-2022 Bilirubin Ql (U) Negative Negative [facility] Bilirubin.total [Mass/volume ] in Serum or PlasmaOrdered By: Moshe Saini 10-21-2022 Bilirubin [Mass/Vol] 0.4 mg/dL 0.3-1.0 [facility] Calcium [Mass/volume] in Ser um or PlasmaOrdered By: Moshe Saini 10-21-2022 Calcium [Mass/Vol] 9.6 mg/dL 8.6-10.3 [facility] Carbon dioxide, total [Moles /volume] in Serum or PlasmaOrdered By: Moshe Saini 10-21-2022 CO2 [Moles/Vol] 28.3 mmol/L 21.0-31.0 [facility] Chloride [Moles/volume] in S jeane or PlasmaOrdered By: Moshe Saini 10-21-2022 Chloride [Moles/Vol] 101 mmol/L 98-107 [facility] Color Auto (U)Ordered By: Libby Saini on 10-21-2022 Color (U) Yellow Yellow [facility] Creatinine [Mass/volume] in Serum or PlasmaOrdered By: Moshe Saini on 10-21-2022 Creatinine [Mass/Vol] 0.68 mg/dL 0.60-1.20 Fir [facility] Eosinophils Auto (Bld) [#/Vo l]Ordered By: Moshe Saini on 10-21-2022 Eosinophils (Bld) [#/Vol] 0.3 10*3/uL 0.0-0.45 [facility] Eosinophils/100 WBC Auto (Bl d)Ordered By: Moshe Saini on 10-21-2022 Eosinophils/100 WBC (Bld) 3.1 % . [facility] Erythrocyte distribution wid th Auto (RBC) [Ratio]Ordered By: Moshe Saini on 10-21-2022 Erythrocyte distribution width (RBC) [Ratio] 13.2 % 11.9-15.3 [facility] Globulin Calc (S) [Mass/Vol] Ordered By: Moshe Saini on 10-21-2022 Globulin (S) [Mass/Vol] 2.7 g/dL F [facility] Glucose [Mass/volume] in Ser um or PlasmaOrdered By: Moshe Saini on 10-21-2022 Glucose [Mass/Vol] 83 mg/dL 70-100 [facility] Hematocrit Auto (Bld) [Volum e fraction]Ordered By: Moshe Saini on 10-21-2022 Hematocrit (Bld) [Volume fraction] 38.0 % 34.0-46.4 [facility] Hemoglobin [Mass/volume] in BloodOrdered By: Moshe Saini on 10-21-2022 Hemoglobin (Bld) [Mass/Vol] 13.2 g/dL 11.8-15.4 [facility] Ketones Auto test strip (U) [Mass/Vol]Ordered By: Moshe Saini on 10-21-2022 Ketones (U) [Mass/Vol] Negative [facility] Leukocytes [#/volume] correc valentino for nucleated erythrocytes in Blood by Automated counOrdered By: Moshe Saini on 10-21-2022 WBC corrected for nucl RBC Auto (Bld) [#/Vol] 8.4 10*3/uL 3.8-11.6 [facility] Lymphocytes Auto (Bld) [#/Vo l]Ordered By: Moshe Saini on 10-21-2022 Lymphocytes (Bld) [#/Vol] 2.4 10*3/uL 1.00-4.8 [facility] Lymphocytes/100 WBC Auto (Bl d)Ordered By: Moshe Saini on 10-21-2022 Lymphocytes/100 WBC (Bld) 28.9 % . [facility] MCH Auto (RBC) [Entitic mass ]Ordered By: Moshe Saini on 10-21-2022 MCH (RBC) [Entitic mass] 31.5 pg 24.7-34.3 [facility] MCHC Auto (RBC) [Mass/Vol]Or dered By: Moshe Saini on 10-21-2022 MCHC (RBC) [Mass/Vol] 34.9 g/dL 32.0-35.0 Fir [facility] MCV Auto (RBC) [Entitic vol] Ordered By: Moshe Saini on 10-21-2022 MCV (RBC) [Entitic vol] 90.3 fL 80-100 [facility] Monocytes Auto (Bld) [#/Vol] Ordered By: Moshe Saini on 10-21-2022 Monocytes (Bld) [#/Vol] 1.0 10*3/uL 0.0-0.8 [facility] Monocytes/100 WBC Auto (Bld) Ordered By: Moshe Saini on 10-21-2022 Monocytes/100 WBC (Bld) 12.3 % . [facility] Neutrophils Auto (Bld) [#/Vo l]Ordered By: Moshe Saini on 10-21-2022 Neutrophils (Bld) [#/Vol] 4.6 10*3/uL 1.8-7.7 [facility] Neutrophils/100 WBC Auto (Bl d)Ordered By: Moshe Saini on 10-21-2022 Neutrophils/100 WBC (Bld) 54.9 % . [facility] Nitrite Test strip Ql (U)Ord ered By: Moshe Saini on 10-21-2022 Nitrite Ql (U) Negative Negative [facility] No Panel InformationOrdered By: Moshe Saini on 10-21-2022 Estimated GFR (CKD-EPI) > 60.0 mL/Min [facility] Creatinine Clearance (Chem N/A [facility] Nucleated erythrocytes [Pres ence] in Blood by Automated countOrdered By: Moshe Saini on 10-21-2022 Nucleated RBC Auto Ql (Bld) 0.1 /100{WBC} 0-0.5 [facility] Platelet mean volume Auto (B ld) [Entitic vol]Ordered By: Moshe Saini on 10-21-2022 Platelet mean volume (Bld) [Entitic vol] 8.1 fL 6.3-10.7 [facility] Platelets Auto (Bld) [#/Vol] Ordered By: Moshe Saini on 10-21-2022 Platelets (Bld) [#/Vol] 284 10*3/uL 150-450 [facility] Potassium [Moles/volume] in Serum or PlasmaOrdered By: Moshe Saini on 10-21-2022 Potassium [Moles/Vol] 4.0 mmol/L 3.5-5.1 [facility] Protein Auto test strip (U) [Mass/Vol]Ordered By: Moshe Saini on 10-21-2022 Protein (U) [Mass/Vol] Negative Negative [facility] Protein [Mass/volume] in Ser um or PlasmaOrdered By: Moshe Saini on 10-21-2022 Protein [Mass/Vol] 7.2 g/dL 6.4-8.9 [facility] RBC Auto (Bld) [#/Vol]Ordere d By: Moshe Saini on 10-21-2022 RBC (Bld) [#/Vol] 4.21 10*6/uL 3.60-5.00 [facility] Serum or plasma albumin/glob ulin mass ratioOrdered By: Moshe Saini on 10-21-2022 Albumin/Globulin [Mass ratio] 1.7 {ratio} [facility] Serum or plasma anion gap de terminationOrdered By: Moshe Saini on 10-21-2022 Anion gap [Moles/Vol] 10.7 mmol/L 6.0-15.0 [facility] Sodium [Moles/volume] in Ser um or PlasmaOrdered By: Moshe Saini on 10-21-2022 Sodium [Moles/Vol] 136 mmol/L 136-145 [facility] Specific gravity Auto test s trip (U) [Rel density]Ordered By: Moshe Saini on 10-21-2022 Specific gravity (U) [Rel density] 1.007 1.001-1.030 [facility] Urea nitrogen [Mass/volume] in Serum or PlasmaOrdered By: Moshe Saini on 10-21-2022 Urea nitrogen [Mass/Vol] 22 mg/dL 7-25 [facility] Urine clarity by refractomet ry automatedOrdered By: Moshe Saini on 10-21-2022 Clarity Refractometry automated (U) Clear Clear [facility] Urine glucose measurement by automated test strip (mass/volume)Ordered By: Moshe Saini on 10-21-2022 Glucose Auto test strip (U) [Mass/Vol] Normal mg/dL Normal [facility] Urine hemoglobin detection b y automated test stripOrdered By: Moshe Saini on 10-21-2022 Hemoglobin Auto test strip Ql (U) Negative Negative [facility] Urine leukocyte esterase det ection by automated test stripOrdered By: Moshe Saini on 10-21-2022 Leukocyte esterase Auto test strip Ql (U) Negative Negative [facility] Urobilinogen Auto test strip (U) [Mass/Vol]Ordered By: Moshe Saini on 10-21-2022 Urobilinogen (U) [Mass/Vol] Normal mg/dL Normal [facility] WBC Auto (Bld) [#/Vol]Ordere d By: Moshe Saini on 10-21-2022 WBC (Bld) [#/Vol] 8.4 10*3/uL 3.8-11.6 [facility] pH Auto test strip (U)Ordere d By: Moshe Saini on 10-21-2022 pH (U) 6.0 [pH] 5.0-9.0 [facility] XR HIPS COLUMBA 3_4V WO PELVISon 05-19-2022 [...] by: EMI BROWN Date: 2022-05-19 07:12 Normal [facility] MG MAMM SCREEN 3D COLUMBA CADon 01-27-2022 MG MAMM SCREEN 3D COLUMBA CAD Patient: XUAN IRBY Exam Date: 01/27/2022 : 1965 Gender:F Ordering : DR LEO MATUTE Admission #: [id number] Family : Order #: [id number] CLICK HERE TO VIEW EXAM RADIOLOGY REPORT [...] lung cancer at age 72. LOCATION: [facility] BREAST COMPOSITION: Extremely dense, which lowers the [...] Ross M.D. on 01/28/2022 at 14:14 Normal [facility] MRI LSPINE WO CONon 08-27-19 MRI LSPINE [...] by: EMI BROWN Date: 2021-08-26 16:56 Normal [facility] Vital Signs Date Time Vital Sign Value Performing Clinician Facility 01-31-2024 10:28-040 Body mass index (BMI) [Ratio] 31.44 kg/m2 Leo Matute MD Work Phone: [facility] 01-31-2024 10:28-040 Body weight 73.03 kg Leo Matute MD Work Phone: [facility] 01-31-2024 10:28-0400 Diastolic blood pressure 82 mm[Hg] Leo Matute MD Work Phone: [facility] 01-31-2024 10:28-0400 Systolic blood pressure 122 mm[Hg] Leo Matute MD Work Phone: [facility] 11-10-2023 15:41-0400 Body height 154.94 cm MD Lillian Cowan Work Phone: [facility] 11-10-2023 15:41-0400 Body mass index (BMI) [Ratio] 30.4 kg/m2 MD Lillian Cowan Work Phone: [facility] 11-10-2023 15:41-0400 Body weight 73 kg MD Lillian Cowan Work Phone: [facility] 04-21-2023 15:30-0500 Body height 154.94 cm Moshe Saini Other [facility] Other 04-21-2023 15:30-0500 Body mass index (BMI) [Ratio] 30.42 kg/m2 Moshe Darryl Other [facility] Other 04-21-2023 15:30-0500 Body weight 73.03 kg Moshe Darryl Other [facility] Other 04-01-2023 09:15-0500 Body height 154.94 cm Lillian Cowan Other [facility] Other 04-01-2023 09:15-0500 Body mass index (BMI) [Ratio] 30.49 kg/m2 Lillian Cowan Other [facility] Other 04-01-2023 09:15-0500 Body weight 73.21 kg Lillian Cowan Other [facility] Other 04-01-2023 09:15-0500 Diastolic blood pressure 82 mm[Hg] Lillian Cowan Other [facility] Other 04-01-2023 09:15-0500 Systolic blood pressure 128 mm[Hg] Lillian Cowan Other [facility] Other 12-21-2022 09:00-0400 Body height 154.94 cm Lillian Cowan Other [facility] Other 12-21-2022 09:00-0400 Body mass index (BMI) [Ratio] 30.95 kg/m2 Lillian Cowan Other [facility] Other 12-21-2022 09:00-0400 Body weight 74.3 kg Lillian Cowan Other [facility] Other 12-21-2022 09:00-0400 Diastolic blood pressure 86 mm[Hg] Lillian Cowan Other [facility] Other 12-21-2022 09:00-0400 Respiratory rate 12 /min Lillian Cowan Other [facility] Other 12-21-2022 09:00-0400 Systolic blood pressure 121 mm[Hg] Lillian Cowan Other [facility] Other 12-16-2022 08:15-0400 Body height 154.94 cm Moshe Saini Other [facility] Other 12-16-2022 08:15-0400 Body mass index (BMI) [Ratio] 31.17 kg/m2 Moshe Saini Other [facility] Other 12-16-2022 08:15-0400 Body weight 74.84 kg Moshe Saini Other [facility] Other 11-03-2022 13:55-0400 Diastolic blood pressure 71 mm[Hg] MD Lillian Cowan Work Phone: [facility] 11-03-2022 13:55-0400 Heart rate 75 /min MD Lillian Cowan Work Phone: [facility] 11-03-2022 13:55-0400 Respiratory rate 16 /min MD Lillian Cowan Work Phone: [facility] 11-03-2022 13:55-0400 SaO2% (BldA) [Mass fraction] 93 % MD Lillian Cowan Work Phone: [facility] 11-03-2022 13:55-0400 Systolic blood pressure 118 mm[Hg] MD Llilian Cowan Work Phone: [facility] 11-03-2022 11:52-0400 Inhaled oxygen flow rate 1.5 L/min MD Lillian Cowan Work Phone: [facility] 11-03-2022 10:37-0400 Body temperature 98.4 [degF] MD Lillian Cowan Work Phone: [facility] 11-03-2022 08:32-0400 Body height 152.4 cm MD Lillian Cowan Work Phone: [facility] 11-03-2022 08:32-0400 Body mass index (BMI) [Ratio] 32.7 kg/m2 MD Lillian Cowan Work Phone: [facility] 11-03-2022 08:32-0400 Body weight 76 kg MD Lillian Cowan Work Phone: [facility] 10-22-2022 15:30-0400 Body height 154.94 cm Lillian Cowan Other [facility] [employer] Other 10-22-2022 15:30-0400 Body mass index (BMI) [Ratio] 31.74 kg/m2 Lillian Cowan Other [facility] [employer] Other 10-22-2022 15:30-0400 Body weight 76.2 kg Lillian Cowan Other [facility] [employer] Other 10-22-2022 15:30-0400 Diastolic blood pressure 86 mm[Hg] Lillian Cowan Other [facility] Other 10-22-2022 15:30-0400 Systolic blood pressure 136 mm[Hg] Lillian Cowan Other [facility] Other 10-14-2022 09:00-0400 Body height 154.94 cm Moshe Darryl Other [facility] Other 10-14-2022 09:00-0400 Body mass index (BMI) [Ratio] 31.17 kg/m2 Moshe Darryl Other [facility] Other 10-14-2022 09:00-0400 Body weight 74.84 kg Moshe Semantra Other [facility] Other 08-31-2022 15:45-0400 Body height 154.94 cm Moshe Darryl Other [facility] Other 08-04-2022 09:05-0400 Diastolic blood pressure 95 mm[Hg] MD Lillian Cowan Work Phone: [facility] 08-04-2022 09:05-0400 Heart rate 68 /min MD Lillian Cowan Work Phone: [facility] 08-04-2022 09:05-0400 Respiratory rate 18 /min MD Lillian Cowan Work Phone: [facility] 08-04-2022 09:05-0400 SaO2% (BldA) [Mass fraction] 99 % MD Lillian Cowan Work Phone: [facility] 08-04-2022 09:05-0400 Systolic blood pressure 153 mm[Hg] MD Lillian Cowan Work Phone: [facility] 08-04-2022 07:29-0400 Body height 152.4 cm MD Lillian Cowan Work Phone: [facility] 08-04-2022 07:29-0400 Body weight 74.84 kg MD Lillian Cowan Work Phone: [facility] 07-13-2022 17:00-0400 Body height 154.94 cm Moshe Darryl Other [facility] [employer] Other 07-13-2022 17:00-0400 Body mass index (BMI) [Ratio] 30.98 kg/m2 Moshe Saini Other [facility] [employer] Other 07-13-2022 17:00-0400 Body weight 74.39 kg Moshe Saini Other [facility] [employer] Other 06-23-2022 09:08-0400 Diastolic blood pressure 82 mm[Hg] MD Lillian Cowan Work Phone: [facility] 06-23-2022 09:08-0400 Heart rate 78 /min MD Lillian Cowan Work Phone: [facility] 06-23-2022 09:08-0400 Respiratory rate 20 /min MD Lillian Cowan Work Phone: [facility] 06-23-2022 09:08-0400 SaO2% (BldA) [Mass fraction] 100 % MD Lillian Cowan Work Phone: [facility] 06-23-2022 09:08-0400 Systolic blood pressure 167 mm[Hg] MD Lillian Cowan Work Phone: [facility] 06-23-2022 07:30-0400 Body height 152.4 cm MD Lillian Cowan Work Phone: [facility] 06-23-2022 07:30-0400 Body weight 74.84 kg MD Lillian Cowan Work Phone: [facility] 06-10-2022 15:30-0500 Body height 154.94 cm Moshe Saini Other [facility] Other 06-10-2022 15:30-0500 Body mass index (BMI) [Ratio] 30.98 kg/m2 Moshe Saini Other [facility] Other 06-10-2022 15:30-0500 Body weight 74.39 kg Moshe Saini Other [facility] Other 05-18-2022 16:30-0500 Body height 154.94 cm Lillian Cowan Other [facility] Other 05-18-2022 16:30-0500 Body mass index (BMI) [Ratio] 30.98 kg/m2 Lillian Cowan Other [facility] Other 05-18-2022 16:30-0500 Body weight 74.39 kg Lillian Cowan Other [facility] Other 05-18-2022 16:30-0500 Diastolic blood pressure 88 mm[Hg] Lillian Cowan Other [facility] Other 05-18-2022 16:30-0500 SaO2% (BldA) [Mass fraction] 99 % Lillian Cowan Other [facility] Other 05-18-2022 16:30-0500 Systolic blood pressure 162 mm[Hg] Lillian Cowan Other [facility] Other 09-11-2021 16:00-0400 Body height 154.94 cm Sergio Cowan Other [facility] Other 09-11-2021 16:00-0400 Body mass index (BMI) [Ratio] 31.55 kg/m2 Sergio Cowan Other [facility] Other 09-11-2021 16:00-0400 Body weight 75.75 kg Sergio Cowan Other [facility] Other Encounters Encounter Date Encounter Type Care Provider Facility Start: 01-31-2024 End: 01-31-2024 Bamboo flowsheet Leo Matute MD Work Phone: [facility] Start: 01-31-2024 End: 01-31-2024 Bamboo flowsheet Leo Matute MD Work Phone: [facility] Start: 01-31-2024 End: 01-31-2024 Patient encounter procedure Leo Matute MD Work Phone: [facility] Start: 01-31-2024 End: 01-31-2024 Periodic preventive med est patient 40-64yrs Leo Matute MD Work Phone: [facility] Comment on above: Well woman exam with routine gynecological exam; Cervical cancer screening; Screening for HPV (human papillomavirus); Other screening mammogram Start: 01-31-2024 End: 01-31-2024 ambulatory LEO MATUTE Not Available Start: 11-10-2023 End: 11-10-2023 ambulatory MD Lillian Cowan Work Phone: [facility] Work Phone: Start: 11-10-2023 End: 11-10-2023 Patient encounter procedure MD Lillian Cowan Work Phone: [facility] Work Phone: Start: 04-27-2023 End: 04-27-2023 ambulatory Moshe Saini Other [facility] Other Start: 04-27-2023 Telephone encounter Moshe BROOKS [facility] Start: 04-23-2023 End: 04-23-2023 ambulatory Lillian Cowan Other [facility] Other Start: 04-23-2023 Telephone encounter [facility] Start: 04-21-2023 Office outpatient vi sit 15 minutes Moshe Saini [facility] Start: 04-21-2023 End: 04-21-2023 Patient encounter procedure MD Lillian Cowan Work Phone: [facility] Start: 04-21-2023 End: 04-21-2023 ambulatory MD Lillian Cowan Work Phone: [facility] Work Phone: Start: 04-01-2023 End: 04-01-2023 ambulatory Lillian Cowan Other [facility] Other Start: 04-01-2023 Office outpatient vi sit 25 minutes [facility] Start: 01-20-2023 End: 01-20-2023 ambulatory Moshe Saini Other [facility] Other Start: 01-20-2023 Postop follow up vis it related to original px Moshe Darryl [facility] Start: 12-23-2022 End: 12-23-2022 ambulatory Lillian Cowan Other [facility] Other Start: 12-23-2022 Telephone encounter [facility] Start: 12-21-2022 End: 12-21-2022 ambulatory Lillian Cowan Other [facility] Other Start: 12-21-2022 Encounter for genera l adult medical examination without abnormal findings [facility] Start: 12-21-2022 Periodic preventive med est patient 40-64yrs [facility] Start: 12-16-2022 End: 12-16-2022 ambulatory Moshe Saini Other [facility] Other Start: 12-16-2022 Postop follow up vis it related to original px Moshe Darryl [facility] Start: 11-23-2022 End: 11-23-2022 ambulatory Moshe Saini Other [facility] Other Start: 11-23-2022 Telephone encounter Moshe BROOKS [facility] Start: 11-16-2022 End: 11-16-2022 ambulatory Moshe Mcmanusley Other [facility] Other Start: 11-16-2022 Postop follow up vis it related to original px Moshe Saini [facility] Start: 11-05-2022 End: 11-05-2022 ambulatory Moshe Mcmanusley Other [facility] Other Start: 11-05-2022 Telephone encounter Moshe BROOKS [facility] Start: 11-03-2022 End: 11-03-2022 Admission to same day surgery center MD Lillian Cowan Work Phone: [facility] [place] Start: 10-22-2022 End: 10-22-2022 ambulatory Lillian Cowan Other [facility] Other Start: 10-22-2022 Encounter for other preprocedural examination [facility] Start: 10-22-2022 Office outpatient vi sit 25 minutes [facility] Start: 10-21-2022 End: 10-21-2022 ambulatory MD Lillian Cowan Work Phone: [facility] Work Phone: Start: 10-21-2022 End: 10-21-2022 Patient encounter procedure MD Lillian Cowan Work Phone: [facility] Work Phone: Start: 10-14-2022 End: 10-14-2022 ambulatory Moshe Darryl Other [facility] Other Start: 10-14-2022 Office outpatient vi sit 25 minutes Moshe Saini [facility] Start: 10-05-2022 End: 10-05-2022 ambulatory Moshe Saini Other [facility] Other Start: 10-05-2022 Telephone encounter Moshe Saini [facility] Start: 09-23-2022 End: 09-23-2022 ambulatory MD Lillian Cowan Work Phone: [facility] Work Phone: Start: 09-23-2022 End: 09-23-2022 Patient encounter procedure MD Lillian Cowan Work Phone: [facility] [place] Work Phone: Start: 08-31-2022 End: 08-31-2022 ambulatory Moshe Saini Other [employer] [facility] [email or web address] Other Start: 08-31-2022 Office outpatient vi sit 25 minutes Moshe Saini [facility] Start: 08-04-2022 (Procedure) Isai Destin Harper [facility] Start: 08-04-2022 End: 08-04-2022 Admission to same day surgery center MD Lillian Cowan Work Phone: [facility] Work Phone: Start: 08-04-2022 End: 08-04-2022 ambulatory MD Lillian Cowan Work Phone: [facility] Work Phone: Start: 07-13-2022 End: 07-13-2022 ambulatory Moshe Saini Other [facility] Other Start: 07-13-2022 Office outpatient vi sit 15 minutes Moshe Saini [facility] Start: 06-26-2022 End: 06-26-2022 ambulatory Moshe Saini Other [facility] Other Start: 06-26-2022 Telephone encounter Moshe Saini [facility] [employer] Start: 06-23-2022 (Procedure) Isai Harper [facility] Start: 06-23-2022 End: 06-23-2022 Admission to same day surgery center MD Lillian Cowan Work Phone: [facility] Work Phone: Start: 06-23-2022 End: 06-23-2022 ambulatory MD Lillian Cowan Work Phone: [facility] Work Phone: Start: 06-11-[address] NICK GARSIA . Faci lity:[facility] Start: 06-10-2022 End: 06-10-2022 ambulatory Moshe Saini Other [facility] Other Start: 06-10-2022 Office outpatient vi sit 25 minutes Moshe Saini [facility] Start: 05-19-2022 End: 05-19-2022 ambulatory Lillian Cowan Other [facility] Other Start: 05-19-2022 Telephone encounter [facility] Start: 05-18-2022 End: 05-19-[address] LILLIAN COWAN [facility] Other Start: 05-18-2022 Office outpatient vi sit 15 minutes [facility] Start: 04-09-2022 End: 04-10-[address] [...] . Facility:[facility] Start: 09-26-2021 End: 09-27-2021 ambulatory MELISSA ARLENE . Facility:[facility] Start: 09-11-2021 End: 09-11-2021 ambulatory Sergio Cowan Other [facility] [email or web address] Other Start: 09-11-2021 Office outpatient ne w 30 minutes Sergio Cowan [facility] Start: 08-26-2021 End: 08-27-[address] EMI BROWN Facility:[facility] Start: 08-06-2021 Adult health examination Elkin Saini Other [facility] [email or web address] Other Procedures Date Procedure Procedure Detail Performing [...] Other screening mammogram Expected: 01/31/2024, Expires: 03/27/2025 [facility] Work Phone: Comment on above: Expected: 01/31/2024 , Expires: 03/27/2025 Start: 01-31-2024 End: 01-31-2024 Patient encounter procedure 01/31/2024 10:30 AM EDT Office Visit [facility] [address] [place] [id number] Leo Matute MD [address] [place] [address] Well woman exam with routine gynecological exam; Cervical cancer screening; Screening for HPV (human papillomavirus); Other screening mammogram [facility] Comment on above: Well woman exam with routine gynecological exam; Cervical cancer screening; Screening for HPV (human papillomavirus); Other screening mammogram Start: 01-30-2024 Screening for malign ant neoplasm of breast Mammogram [facility] Start: 12-21-2023 Screening for malign ant neoplasm of cervix [facility] Start: 12-12-2023 Influenza vaccination Influenza Vacc ine (#1) [facility] Start: 11-03-2022 [facility] Start: 11-03-2022 Hospital admission [facility] Start: 11-02-2022 [facility] Start: 08-04-2022 [facility] Start: 06-23-2022 [facility] Start: 1997 Screening for malign ant neoplasm of cervix HPV/Cotest [facility] Start: 1967 Screening for malign ant neoplasm of colon [facility] IGP, APT HPV,RFX 16/18,45 IGP, APT HPV,RFX 16/18,45 Lab Routine Cervical cancer screening Screening for HPV (human papillomavirus) Ordered: 01/31/2024 [facility] Comment on above: Ordered: 01/31/2024 Patient Education Felter Non Cat gnostic Block [facility] Work Phone: Patient referral [facility] Work Phone: Immunizations Immunization Date Immunization Notes Care Provider Cullen redmond 02-19-2023 influenza virus vaccine, unspecified formulation Leo Matute MD Work Phone: [facility] 03-01-2022 COVID-19 Vaccine Moderna - Documentation Purposes Only Moshe Saini Other [facility] 03-01-2022 influenza virus vaccine, split virus (incl. purified surface antigen) Msohe Mcmanusley Other [facility] Other 03-01-2022 Influenza, injectabl e, Madin Canine Kidney, preservative free, quadrivalent Leo Matute MD Work Phone: [facility] 03-01-2022 SARS-CoV-2, Unspecified Jasmin Matute MD Work Phone: [facility] 03-01-2022 influenza, injectabl e, quadrivalent, preservative free Lillian Cowan Other [facility] 03-01-2022 influenza virus vaccine, unspecified formulation Leo Matute MD Work Phone: [facility] Payers Date Payer Category Payer Self-pay [id number] 2022 Private Health Insurance [facility] [id number] 5 1967 Unknown [id number] 2.16.840.1.950843.3.579 .2.593 1967 Unknown [id number] 2.16.840.1.279350.3.579 .2.593 1967 Unknown [id number] 2.16.840.1.029479.3.579 .2.593 1967 Unknown [id number] 2.16.840.1.923757.3.579 .2.593 1967 Unknown [id number] 2.16.840.1.565007.3.579 .2.593 1967 Unknown [id number] 2.16.840.1.073056.3.579 .2.593 1967 Unknown [id number] 2.16.840.1.841069.3.579 .2.593 1967 Unknown [id number] 2.16.840.1.169001.3.579 .2.593 1967 Unknown [id number] 2.16.840.1.004183.3.579 .2.593 1967 Unknown [id number] 2.16.840.1.096162.3.579 .2.593 1967 Unknown [id number] 2.16.840.1.058708.3.579 .2.593 1967 Unknown [id number] 2.16.840.1.182140.3.579 .2.1259 1959 Unknown [id number] 2.16.840.1.378960.19 1959 Unknown [id number] 2.16.840.1.677223.19 Unknown [id number] 2.16.840.1.541617.3.579 .2.531 Unknown [id number] 2.16.840.1.068937.3.579 .2.531 Worker's Compensation [facility] [id number] Social History Date Type Detail Facility Start: 01-26-2024 End: 01-31-2024 Sex Assigned At [facility] [employer] Other Start: 06-23-2022 End: 01-14-2023 Tobacco smoking status NHIS Ex-smoker (finding) [facility] Start: 1965 Sex Assigned At Female F [facility] Start: 04-12-1984 End: 04-12-1993 History of tobacco use Current smoker [facility] Start: 04-12-1984 End: 04-12-1993 History of tobacco use Cigarette Smoker [facility] Start: 01-14-2023 End: 01-31-2024 Cigarettes smoked current (pack per day) - Reported 1 [facility] Start: 01-14-2023 Tobacco use and exposure Smokeless tobacco non-user [facility] Start: 01-26-2024 End: 01-31-2024 Alcoholic beverage intake Ex-drinker (finding) [facility] Start: 10-27-2022 Alcohol Comment Caffeine intak e: 2-3 cups per day tea [facility] Start: 1965 Sex assigned at Not on file N [facility] Medical Equipment Procedure Code Equipment Code Equipment Origin al Text Equipment Identifier Dates Minimally invasive revision of total replacement of hip Coated hip femur prosthesis, modular ()[id number] FDA Start: 11-03-2022 Minimally invasive revision of total replacement of hip Ceramic femoral head prosthesis ()[id number] FDA Start: 11-03-2022 Minimally invasive revision of total replacement of hip Acetabular shell ()[id number] FDA Start: 11-03-2022 Minimally invasive revision of total replacement of hip Orthopaedic bone screw, non-bioabsorbable, sterile ()[id number] FDA Start: 11-03-2022 Minimally invasive revision of total replacement of hip Non-constrained polyethylene acetabular liner ()[id number] FDA Start: 11-03-2022 Goals Date Patient Goal [...] 0 1 # Outcome Date GA Lbr Bro/2nd Weight Sex Type Anes PTL Lv 2 1 Term Obstetric Comments Pap: 12/31-Neg LIBIA: HPV Neg Mammo: 01/29/23-Neg ([facility]) Menopausal Medication and Allergies Medication Documentation Review Audit Reviewed by Marielena Vance MA (Table Runner) on 01/31/24 at 1031 Medication Order Taking? Sig Documenting Provider Last Dose Status atorvastatin (Lipitor) 20 MG tablet [id number] Yes Leo Matute MD Active calcium acetate (Phoslo) 667 MG capsule [id number] Take by mouth 3 (three) times a day with meals. Historical ProviderMD Active FLUoxetine (PROzac) 20 MG capsule [id number] Yes .COMPLEX Leo Matute MD Active glucosamine-chondroitin 500-400 MG tablet [id number] Take 1 tablet by mouth in the morning and 1 tablet in the evening and 1 tablet before bedtime. Historical ProviderMD Active Multiple Vitamins-Minerals (Multivitamin) liquid [id number] Orally Historical ProviderMD Active propranolol LA (Inderal LA) 120 MG 24 hr capsule [id number] take 1 capsule by mouth once daily [...] requisition? Answer: No documented in this encounter [facility] 04-23-2023 Evaluation note Encounter Date Diagnosis Assessment Notes Apr, Anxiety, generalized (ICD-10 - F41.1) [facility] Other 01-10-2024 Evaluation note* Encounter Date Diagnosis [...] to call with any questions or concerns. [facility] Other 12-21-2023 Evaluation note* Encounter Date Diagnosis Assessment Notes Treatment Notes Treatment Clinical Notes Mar, Hyperlipidemia, unspecified hyperlipidemia type (ICD-10 - E78.5) begin medicine - recheck in 2-3 months Mar, Anxiety, generalized (ICD-10 - F41.1) Discussed referral to [facility] for assessment and counseling. She states she doesn't like to drive to [place]. # given for [facility]. [facility] Other 10-11-2023 Evaluation note* Encounter Date Diagnosis [...] or sooner if she feels its necessary. [facility] Other 09-11-2023 Evaluation note* Encounter Date Diagnosis [...] patient is sent home pleased, without concerns. [facility] Other 09-06-2023 Evaluation note* Encounter Date Diagnosis [...] to call with any questions or concerns. [facility] Other 08-07-2023 Evaluation note* Encounter Date Diagnosis [...] as documented in the electronic medical record. [facility] Other 07-13-2023 Evaluation note* Encounter Date Diagnosis [...] - I10) well controlled on present med. [facility] Other 07-05-2023 Evaluation note* Encounter Date Diagnosis [...] proceed with total hip replacement. Patient given [facility] information handout regarding total hip arthroplasty Oct, Spondylolisthesis, lumbar region (ICD-10 - M43.16) Stable, monitor [facility] Other 05-22-2023 Evaluation note* Encounter Date Diagnosis [...] August, Spondylolisthesis, lumbar region (ICD-10 - M43.16) [facility] Other [facility]* Encounter Date Diagnosis Assessment Notes [...] Jul, Spondylolisthesis, lumbar region (ICD-10 - M43.16) [facility] Other 03-01-2023 Evaluation note* Encounter Date Diagnosis [...] as documented in the electronic medical record. [facility] Other 02-06-2023 Evaluation note* Encounter Date Diagnosis Assessment Notes Treatment Notes Treatment Clinical Notes May, Pain in right hip (ICD-10 - M25.551) Ongoing issue with lumbar and hip pain for close to a year. Has done injections, PT and had lumbar MRI. Requests referral to Dr. Saini May, Pain in left hip (ICD-10 - M25.552) as above. [facility] Other 12-29-2022 NoteCONSULTATION CONSULTATION DATE: 04/09/2022 HISTORY [...] and she is to continue her diclofenac.[id number] NoteCONSULTATION CONSULTATION DATE: 03/11/2022 This is a [...] minimal relief. 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 Work Phone: Evaluation note* Diagnosis Onset Date Resolution Status Presence of left artificial hip joint acute [facility] Work Phone: evaluation note* Diagnosis Well woman exam with routine gynecological exam Routine gynecological examination Cervical cancer screening Screening for malignant neoplasm of the cervix Screening for HPV (human papillomavirus) Special screening examination for human papillomavirus (HPV) Other screening mammogram documented in this encounter [facility] - Reported* Type Description Date Medical History hypertension Surgical History bunionectomy Surgical History D&C Hospitalization History See Above [facility] Other [facility]iiox general Narrative - Reported* Type Description Date Medical History Tremor Medical History Degenerative disc disease at L5- S1 level Medical History Lumbar back pain wit h radiculopathy affecting left lower extremity Medical History Cervical lymphadenopathy Medical History Pain in right knee Medical History Essential hypertension Surgical History bunionectomy Surgical History D&C Hospitalization History See Above [facility] Other Hispbyu general Narrative - Reported* Type Description Date Medical History Tremor Medical History Degenerative disc disease at L5- S1 level Medical History Lumbar back pain wit h radiculopathy affecting left lower extremity Medical History Cervical lymphadenopathy Medical History Pain in right knee Medical History Essential hypertension Surgical History bunionectomy Surgical History D&C Surgical History Goitre removed from throat Hospitalization History See Above [facility] Other Hisbtop general Narrative - Reported* Type Description Date [...] History [facility]THA 11/03/22 Hospitalization History See Above [facility] Other Hospital Discharge instructions Additional Instructions Total [...] drainage from your wound. Dr. Moshe Saini [facility] [address] [place], [place] [id number] [phone] Work Phone: Reason for Referral Reason Evaluate and Treat w ith Injections [facility] Diagnosis 1 Greater trochanteric bursitis of right hip (M70.61) Referral Organization [facility] Referring Provider First Name Sergio Referring Provider Last Name Camryn Referring Provider Specialty Neurologica l Surgery Referred Organization Unknown Facility Referred Provider Dennis Mcallister Referred Provider Specialty Pain Medicin e Referral Priority Routine Reason 06/10/22 Xrays tod ay at [facility] - saw Dr. Nasim Cowan and Dr. Garsia Diagnosis 1 Pain in right hip (M 25.551) Referral Organization [facility] Referring Provider First Name Lillian Referring Provider Last Name Camryn Referring Provider Specialty [facility] Referred Organization [facility] Referred Provider Moshe Saini Referred Address [address],[place], [place],[address] Referred Provider Specialty Orthopedic S urgery Referral [...] left art ificial hip joint Advance Directives No Advanced Directives Records Found Advance Directive Response Recorded Date/ Time Advance [...] Provider Active S tart: November 10, 2023 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 Start Date End Date Lillian Cowan MD [address] [place] [address] PCP - General Family Medicine 09/10/22 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 [employer] provides no warranty or guarantee of the accuracy or completeness of information in this document.
[2024-04-01 09:00] LABS: Basophils Absolute Auto 0.1 10^3/uL (0.0-0.1); Basophils Percent Auto 1.1 % (0.2-2.0); Eosinophils Absolute Auto 0.2 10^3/uL (0.0-0.7); Eosinophils Percent Auto 2.6 % (0.9-7.0); Hematocrit 40.6 % (36.0-48.0); Hemoglobin 13.6 g/dL (12.0-16.0); Immature Granulocytes Abs Auto 0.01 10^3/uL (0.00-0.03); Immature Granulocytes Pct Auto 0.2 % (0.0-0.5); Lymphocytes Percent Auto 30.6 % (20.5-60.0); Mean Corpuscular HGB Conc 33.5 g/dL (29.9-35.2); Mean Corpuscular Hemoglobin 31.3 pg (26.7-34.0); Mean Corpuscular Volume 93.5 fL (81.0-99.0); Mean Platelet Volume 10.5 fL (9.5-13.5); Monocytes Absolute Auto 0.7 10^3/uL (0.3-0.8); Monocytes Percent Auto 10.2 % (1.7-12.0); Neutrophils Absolute Auto 3.6 10^3/uL (1.4-6.5); Neutrophils Percent Auto 55.3 % (43.0-75.0); Platelet Count 245 10^3/uL (150-450); Red Blood Count 4.34 10^6/uL (4.20-5.40); Red Cell Distribution Width 11.9 % (11.0-15.0); White Blood Count 6.4 10^3/uL (4.0-11.0)
[2024-04-01 10:05] LABS: Alanine Aminotransferase 18 U/L (14-59); Albumin Globulin Ratio 0.9; Albumin Level 3.3 g/dL (3.4-5.0); Alkaline Phosphatase 99 U/L (46-116); Anion Gap 11.8; Aspartate Amino Transferase 18 U/L (15-37); BUN Creatinine Ratio 15.8; Bilirubin Total 0.7 mg/dL (0.2-1.0); Calcium 9.1 mg/dL (8.5-10.1); Carbon Dioxide 30.2 mmol/L (21.0-32.0); Chloride 107 mmol/L (98-107); Chol HDL Ratio 2.4; Cholesterol 161 mg/dL (<=200); Estimated GFR (African America >60 (>=60 mL/min/1.73m^2); Estimated GFR (Non-African Ame >60 (>=60 mL/min/1.73m^2); Globulin 3.5 g/dL; Glucose 98 mg/dL (74-106); HDL Cholesterol 67 mg/dL (40-60); Sodium 144 mmol/L (136-145); Thyroid Stimulating Hormone 1.039 uIU/mL (0.358-3.740); Total Protein 6.8 g/dL (6.4-8.2); Triglycerides 73 mg/dL (<=150); VLDL CHOLESTEROL 14.6 mg/dL
== END 2024-04-01 08:39 | disposition home or self-care (01) ==
LOC: LAB 08:40
PROVIDERS: PCP Family Medicine; Visit Provider Family Medicine
DX: Z00.00 Encounter for general adult medical examination without abnormal findings (principal); E78.5 Hyperlipidemia, unspecified
CPT/HCPCS: 36415; 80053; 80061; 84443; 85025

== ENCOUNTER 2025-02-05 12:53 | Outpatient (OUT) | payer OTHER, SELFPAY ==
--- NOTE | 2025-02-05 | MM_ITS ---
Patient Name: RONY IRBY MR#: [id number] : 1965 Exam Date: 02/05/2025 Ordering Doctor: DR LEO ESTEBAN RADIOLOGY REPORT PROCEDURE: MM TOMOSYNTHESIS SCREENING BI COMPARISON: MM TOMOSYNTHESIS SCREENING BI, 02/01/2024. MM TOMOSYNTHESIS SCREENING BI, 01/28/2023. MG MAMM SCREEN 3D [place] CAD, 01/27/2022. MG MAMM [place] SCRN W CAD DIG, 01/25/2013. INDICATIONS: OTHER SCREENING MAMMOGRAM Z12.31 Calculator Name NCI Breast Cancer Risk Assessment Tool 5 Year Breast Cancer Risk 0.90% Lifetime Breast Cancer Risk 5.10% Personal Breast Cancer No Personal Ovarian Cancer No Treatments None Family Cancers Mother with ovarian cancer at age ~40; Mother with colon cancer at age ~60; Father with lung cancer at age ~70. LOCATION: [facility] BREAST COMPOSITION: The breasts are heterogeneously dense, which may obscure small masses. FINDINGS: RIGHT BREAST: No significant suspicious finding. LEFT BREAST: No significant suspicious finding. DIAGNOSTIC CATEGORY 1--NEGATIVE. RECOMMENDATIONS: ROUTINE MAMMOGRAM AND CLINICAL EVALUATION IN 12 MONTHS. Dictated by: Erik Arce DO on 02/05/2025 at 15:09 Approved by: Erik Arce DO on 02/05/2025 at 15:15
--- OUTSIDE RECORDS SUMMARY | 2025-02-05 10:30 | XMS_ITS | Encounter Summary ---
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 Encounter Details DateTypeDepartmentCare Team (Latest Contact Info)Lvhgeeamqeh96/27/2025 10:30 AM EDTOffice Visit CHRISTOPHER ANDREWS [address] [facility] [address] [place] [phone] Luis Miguel Matute MD [address] [facility] [address] [place] [address] Well woman exam with routine gynecological exam (Primary Dx); Other screening mammogram Social History Tobacco UseTypesPacks/DayYears UsedDateSmoking Tobacco: AkqdbzXscxnvkvdk76 04/12/1984 - 04/12/1993Smokeless Tobacco: NeverAlcohol UseStandard Drinks/Week CommentsNot Currently0 (1 standard drink = 0.6 oz pure alcohol)Caffeine intake: 2-3 cups per day teaCommentsNoSex and Gender InformationValueDate RecordedSex Assigned at BirthNot on fileLegal AibFztegj57/15/2023 7:17 PM EDT Gender IdentityNot on fileSexual OrientationNot on filedocumented as of this encounter Last Filed Vital Signs Vital SignReadingTime TakenCommentsBlood Kxebviwg062/7602/05/2025 10:36 AM EDT Pulse--Temperature--Respiratory Rate--Oxygen Saturation--Inhaled Oxygen Concentration--Xkftjo43.8 kg (165 lb)02/05/2025 10:36 AM FOAIptpyv639.4 cm (5') 02/05/2025 10:36 AM EDTBody Mass Index32.221 10:36 AM EDTdocumented in this encounter Progress Notes * Luis Miguel Matute MD - 02/05/2025 10:30 AM EDT Images from the original note were not included. Luis Miguel Matute MD Obstetrics and Gynecology Patient: Xuan Haq, : 1965 (60 y.o.) DOS 02/05/25 Exam Date: 02/05/2025 HPI: She is well No issues Visit Vitals BP 110/76 Ht 5' Wt 165 lb BMI 32.22 kg/m?? OB Status Postmenopausal Smoking Status Former BSA 1.78 m?? OB History Para Term AB Living 2 1 1 0 0 1 SAB IAB Ectopic Multiple Live Births 0 0 0 0 1 # Outcome Date GA Lbr Bro/2nd Weight Sex Type Anes PTL Lv 2 1 Term Obstetric Comments Pap: 02/02-Neg LIBIA: HPV Neg Mammo: 02/01/24-Neg (TBH) Menopausal Medication and Allergies Medication Documentation Review Audit Reviewed by Wen Fam MA (Headrig Sawyer) on 02/05/25 at 1038 Medication Order Taking? Sig Documenting Provider Last Dose Status atorvastatin (Lipitor) 20 MG tablet [id number] Luis Miguel Matute MD Active calcium acetate (Phoslo) 667 MG capsule [id number] Take by mouth 3 (three) times a day with meals. Historical ProviderMD Active FLUoxetine (PROzac) 20 MG capsule [id number] .COMPLEX Luis Miguel Matute MD Active glucosamine-chondroitin 500-400 MG tablet [id number] Take 1 tablet by mouth in the morning and 1 tablet in the evening and 1 tablet before bedtime. Historical ProviderMD Active Multiple Vitamins-Minerals (Multivitamin) liquid 72204141 Orally Historical ProviderMD Active propranolol LA (Inderal LA) 120 MG 24 hr capsule [id number] take 1 capsule by mouth once daily Wilber Lindsay DO Active propranolol LA (Inderal LA) 80 MG 24 hr capsule [id number] Yes Luis Miguel Matute MD Active Allergies[1] Medical History[2] Surgical History[3] Physical Exam: Objective Physical Exam Constitutional: Appearance: Normal appearance. Genitourinary: Vulva normal. No vaginal discharge or bleeding. Right Adnexa: not palpable. Left Adnexa: not palpable. No cervical lesion. Uterus is not enlarged or tender. Breasts: Right: Normal. Left: Normal. Pulmonary: Effort: Pulmonary effort is normal. Abdominal: General: Abdomen is flat. Palpations: Abdomen is soft. Neurological: Mental Status: She is alert. Assessment/Plan ICD-10-CM 1. Well woman exam with routine gynecological exam Z01.419 2. Other screening mammogram Z12.31 Bilateral screening mammogram with tomosynthesis Orders Placed This Encounter Procedures Bilateral screening mammogram with tomosynthesis U/S and spot compression if indicated Standing Status: Future Expected Date: 02/05/2026 Expiration Date: 05/06/2026 Reason for exam:: screen Is the patient ?: No [1] Allergies Allergen Reactions Atenolol Srinath Inhibitors Anxiety [2] Past Medical History: Diagnosis Date Hip pain, chronic, left HTN (hypertension) Migraine headache [3] Past Surgical History: Procedure Laterality Date BUNIONECTOMY Bilateral CYST REMOVAL from throat DILATION AND CURETTAGE FOOT SURGERY OTHER SURGICAL HISTORY goiter removal TOTAL HIP ARTHROPLASTY Left 11/03/2022 VAGINAL DELIVERY documented in this encounter Plan of Treatment DateTypeDepartmentCare Team (Latest Contact Info)Fxlxnqwansy49/02/2026 10:30 AM ESTOffice Visit NOMMeagan ANDREWS [address] [place] [phone] Luis Miguel Matute MD [address] [place] [address] NameTypePriorityAssociated DiagnosesOrder ScheduleBilateral screening mammogram with tomosynthesisImagingRoutine Other screening mammogram Expected: 02/05/2026, Expires: 05/06/2026documented as of this encounter Visit Diagnoses Diagnosis Well woman exam with routine gynecological exam- Primary Routine gynecological examination Other screening mammogram documented in this encounter Care Teams Team MemberRelationshipSpecialtyStart DateEnd Date Lillian Zepeda MD [address] [place] [address] PCP - GeneralFamily Medicine09/10/22documented as of this encounter
--- OUTSIDE RECORDS SUMMARY | 2025-02-05 12:57 | XMS_ITS | Encounter Summary ---
Author Organization [facility] Address [address] [facility] [place] [address] Care Team Providers Care Home Health Nurse Licensed Practical Name Role Phone Lillian Zepeda MD Primary Care Provider [phone] Encounter Details DateTypeDepartmentCare Team (Latest Contact Info)Qglaxvgjcrd18/27/2025amboo flowsheet NOM[facility]agan ANDREWS [address] [email or web address] [address] [place] [address] Luis Miguel Matute MD [address] [facility] [address] [place] [address] Social History Tobacco UseTypesPacks/DayYears UsedDateSmoking Tobacco: ShlncjMdiaemxtci32 04/12/1984 - 04/12/1993Smokeless Tobacco: NeverAlcohol UseStandard Drinks/Week CommentsNot Currently0 (1 standard drink = 0.6 oz pure alcohol)Caffeine intake: 2-3 cups per day teaCommentsNoSex and Gender InformationValueDate RecordedSex Assigned at BirthNot on fileLegal XmzDjgmiu15/15/2023 7:17 PM EDT Gender IdentityNot on fileSexual OrientationNot on filedocumented as of this encounter Plan of Treatment DateTypeDepartmentCare Team (Latest Contact Info)Zxkudghbclh44/02/2026 10:30 AM ESTOffice Visit CHRISTOPHER ANDREWS [address] [email or web address] [address] [place] [address] Luis Miguel Matute MD [address] [facility] [address] [place] [address] documented as of this encounter Visit Diagnoses Not on filedocumented in this encounter Care Teams Team MemberRelationshipSpecialtyStart DateEnd Date Lillian Zepeda MD [address] [place] [address] PCP - GeneralFamily Medicine09/10/22documented as of this encounter
--- OUTSIDE RECORDS SUMMARY | 2025-02-05 12:57 | XMS_ITS | Encounter Summary ---
Author Organization [facility] Address [address] [facility] [place] [address] Care Team Providers Care Product Safety Test Engineer Name Role Phone Lillian Zepeda MD Primary Care Provider [phone] Encounter Details DateTypeDepartmentCare Team (Latest Contact Info)Jgrdkbcylkw13/27/2025Travel Social History Tobacco UseTypesPacks/DayYears UsedDateSmoking Tobacco: BkueofUuumgxekit07 04/12/1984 - 04/12/1993Smokeless Tobacco: NeverAlcohol UseStandard Drinks/Week CommentsNot Currently0 (1 standard drink = 0.6 oz pure alcohol)Caffeine intake: 2-3 cups per day teaCommentsNoSex and Gender InformationValueDate RecordedSex Assigned at BirthNot on fileLegal RvfLdubub44/15/2023 7:17 PM EDT Gender IdentityNot on fileSexual OrientationNot on filedocumented as of this encounter Plan of Treatment DateTypeDepartmentCare Team (Latest Contact Info)Ibqefgbosjj06/02/2026 10:30 AM ESTOffice Visit CHRISTOPHER ANDREWS [address] [facility] [address] [place] [address] Luis Miguel Matute MD [address] [facility] [address] [place] [address] documented as of this encounter Visit Diagnoses Not on filedocumented in this encounter Care Teams Team MemberRelationshipSpecialtyStart DateEnd Date Lillian Zepeda MD [address] [place] [phone] [facility]09/10/22documented as of this encounter
--- OUTSIDE RECORDS SUMMARY | 2025-02-05 12:57 | XMS_ITS | Clinical Summary ---
Author Organization [facility] Address [address] [place] [address] Care Team Providers Care Family Service Assistant Name Role Phone Lillian Zepeda MD Primary Care Provider [phone] Allergies Active AllergyReactionsCriticalityNoted DateCommentsAce InhibitorsAnxietyLow 11/10/20233220Cauynsvz47/01/2023 Medications MedicationSigDispense QuantityRefillsLast FilledStart DateEnd DateStatus Multiple Vitamins-Minerals (Multivitamin) liquid OrallyActive calcium acetate (Phoslo) 667 MG capsule Take by mouth 3 (three) times a day with meals.Active glucosamine-chondroitin 500-400 MG tablet Take 1 tablet by mouth in the morning and 1 tablet in the evening and 1 tablet before bedtime.Active propranolol LA (Inderal LA) 120 MG 24 hr capsule Indications:Tremortake 1 capsule by mouth once daily 90 capsule 10/18/2023ctive atorvastatin (Lipitor) 20 MG tablet 4Active FLUoxetine (PROzac) 20 MG capsule .NCVBYSE5310/18/2023ctive propranolol LA (Inderal LA) 80 MG 24 hr capsule 5Active Active Problems ProblemNoted DateDiagnosed DateAbnormal ooqaxyxqe34/01/2023Other hammer toe(s) (acquired), left foot09/10/2022History of stress waaxlzvw34/01/2023 Encounters DateTypeDepartmentCare PjvsGfylmvyetog40/27/2025 10:30 AM EDTOffice Visit [facility] [address] [place] [phone] Leo Esteban MD Well woman exam with routine gynecological exam (Primary Dx); Other screening exnbykimd97/27/2025amboo flowsheet [facility] [address] [place] [phone] Leo Esteban MD 02/05/2025Travelfrom Last 3 Months Immunizations ImmunizationAdministration DatesNext DueInfluenza, injectable, MDCK, preservative free, ahnajtvafept80/20/1424ETUL-AgP-8, Icegwsdwwkw50/20/2022 Family History Medical HistoryRelationNameCommentsDiabetesBrotherDiabetesFatherLung cancer FatherDiabetesMaternal GrandmotherColon cancerMotherOvarian cancerMotherhtn MotherRelationNameStatusCommentsBrotherAliveFatherDeceasedMaternal Grandmother DeceasedMotherDeceased Social History Tobacco UseTypesPacks/DayYears UsedDateSmoking Tobacco: ZnrsrbUdvdbbffhz25 04/12/1984 - 04/12/1993Smokeless Tobacco: Never Tobacco Cessation:Counseling Given: Not Answered Alcohol UseStandard Drinks/WeekCommentsNot Currently0 (1 standard drink = 0.6 oz pure alcohol)Caffeine intake: 2-3 cups per day teaCommentsNoSex and Gender InformationValueDate RecordedSex Assigned at BirthNot on fileLegal Sex Ecqxoo2306/24/2022 7:17 PM EDTGender IdentityNot on fileSexual OrientationNot on file Last Filed Vital Signs Vital SignReadingTime TakenCommentsBlood Xkvomdlm274/7602/05/2025 10:36 AM EDT Pulse--Temperature--Respiratory Rate--Oxygen Saturation--Inhaled Oxygen Concentration--Ykhxdh65.8 kg (165 lb)02/05/2025 10:36 AM NWJWrmikr037.4 cm (5') 02/05/2025 10:36 AM EDTBody Mass Index32.221 10:36 AM EDT Plan of Treatment DateTypeDepartmentCare Team (Latest Contact Info)Vnmorsdwuuw57/02/2026 10:30 AM ESTOffice Visit [facility]S [place] ANDREWS [address] [place] [phone] Leo Esteban MD [address] [place] [address] Health MaintenanceDue DateLast DoneCommentsCT Kgqahksfdupy1965Colonoscopy 1965Colorectal Cancer Pdgblmewf1967FIT-DNA1967FIT1965 FOBT1965 3959Ohzahsmuyuhkj1967Pap Smear409/01/2021Influenza Vaccine (#1)511/, 02/19/2023, 03/01/20220099Bpqvudvsp33/24/2025 02/03/2024, 01/29/2023, 01/27/2022, Additional history existsCervical Cancer Ezujkktlz43/21/2029HPV/Dzgslg9091 Procedures Procedure NamePriorityDate/TimeAssociated DiagnosisCommentsMM TOMOSYNTHESIS SCREENING BI02/03/2024 2:25 PM EDT IGP, APT HPV,RFX 16/18,31Lkyavcp67/21/2024 10:40 AM EDT Cervical cancer screening Screening for HPV (human papillomavirus) THINPREP TIS PAP AND HPV MRNA E6/E7 REFLEX HPV 16,18/45 (48683)Njprdqg4812/20/2020 from Last 3 Months or Most Recently Relevant to Health Maintenance Results * MM TOMOSYNTHESIS SCREENING BI (02/03/2024 2:25 PM EDT)Anatomical Region LateralityModalityOtherSpecimen (Source)Anatomical Location / Laterality Collection Method / VolumeCollection TimeReceived Time02/03/2024 2:25 PM EDT Narrative 02/03/2024 2:26 PM EDT [facility] ?[address] ? [place] [address] ? Mammography Report ? Signed ? Patient: SUREKHA,XUAN E ?MR#: [id number] ?? : 1965 ?Acct:[id number] ?? Age/Sex: 59 / F ?ADM Date: 10/22/24 ?? Loc: MAMMO ? Attending : LEO ESTEBAN ? Ordering Physician: LEO ESTEBAN ? Results: ? Date of Service: 02/01/24 ?Follow Up: ? Procedure(s): MM tomosynthesis screening BI ?? Accession Number(s): [id number] ? cc: Lillian Zepeda M.D.; LEO ESTEBAN ? Patient Name: ? XUAN IRBY ? MR#: [id number] ? : 1965 ? Exam Date: 02/01/2024 ?? Ordering Doctor: DR LEO ESTEBAN ? RADIOLOGY REPORT ? PROCEDURE: ? MM TOMOSYNTHESIS SCREENING BI ? COMPARISON: ? MM TOMOSYNTHESIS SCREENING BI, 01/28/2023. ??MG MAMM SCREEN 3D ?? [place] CAD, 01/27/2022. ??MG MAMM SCREEN 3D [place] CAD, 01/21/2021. ??MG MAMM [place] SCRN ?? W CAD DIG, 01/25/2013. ? INDICATIONS: ? screening mamm Z12.31 ? Calculator Name ? NCI Breast Cancer Risk Assessment Tool ?? 5 Year Breast Cancer Risk ? 0.80% ?? Lifetime Breast Cancer Risk ? 5.20% ?? Personal Breast Cancer ?No ?? Personal Ovarian Cancer ? No ?? Treatments ? None ?? Family Cancers ? Mother with ovarian cancer at age ??40; Mother with colon ?? cancer at age ??60; Father with lung cancer at age ??70. ? LOCATION: ? [facility] ? BREAST COMPOSITION: ? The breasts are heterogeneously dense,which may ?? obscure small masses. ? FINDINGS: ? DIAGNOSTIC CATEGORY 1--NEGATIVE. ? RIGHT BREAST: ??No significant suspicious finding. ??No significant change has ?? occurred. ? LEFT BREAST: ??No significant suspicious finding. ??No significant change has ?? occurred. ? RECOMMENDATIONS: ? ROUTINE MAMMOGRAM AND CLINICAL EVALUATION IN 12 MONTHS. ? PLEASE NOTE: ??A NORMAL MAMMOGRAM DOES NOT EXCLUDE THE POSSIBILITY OF BREAST ?? CANCER. ??A CLINICALLY SUSPICIOUS PALPABLE LUMP SHOULD BE BIOPSIED. ? Dictated by: Marcellus Ross M.D. on 02/03/2024 at 14:23 ? Approved by: Marcellus Ross M.D. on 02/03/2024 at 14:25 ? Dictated By: ?Marcellus Ross M.D. ? Signed By: ?02/03/24 1426 ? DD/ 1425 ? TD/TT: ? Ruffler: Procedure Note Radiology, Radiologist, - 02/03/2024 [place] [address] Mammography Report Signed Patient: XUAN IRBY EMR#: [id number] : 1965Acct:[id number] Age/Sex: 59 / FADM Date: 02/01/24 Loc: MAMMO Attending Dr: LEO ESTEBAN Ordering Physician: LEO ESTEBANResults: Date of Service: 02/01/24Follow Up: Procedure(s): MM tomosynthesis screening BI Accession Number(s): [id number] cc: Lillian Zepeda M.D.; LEO ESTEBAN Patient Name: XUAN IRBY MR#: [id number] : 1965 Exam Date: 02/01/2024 Ordering Doctor: DR LEO PRINTY RADIOLOGY REPORT PROCEDURE: MM TOMOSYNTHESIS SCREENING BI COMPARISON: MM TOMOSYNTHESIS SCREENING BI, 01/28/2023. MG MAMM BVLPFL6U [place] CAD, 01/27/2022. MG MAMM SCREEN 3D [place] CAD, 01/21/2021. MG MAMM BILSCRN W CAD DIG, 01/25/2013. INDICATIONS: screening mamm Z12.31 Calculator Name NCI Breast Cancer Risk Assessment Tool 5 Year Breast Cancer Risk 0.80% Lifetime Breast Cancer Risk 5.20% Personal Breast Cancer No Personal Ovarian Cancer No Treatments None Family Cancers Mother with ovarian cancer at age 40; Mother withcolon cancer at age 60; Father with lung cancer at age 70. LOCATION: [facility] BREAST COMPOSITION: The breasts are heterogeneously dense,which may obscure small masses. FINDINGS: DIAGNOSTIC CATEGORY 1--NEGATIVE. RIGHT BREAST: No significant suspicious finding. No significant changehas occurred. LEFT BREAST: No significant suspicious finding. No significant changehas occurred. RECOMMENDATIONS: ROUTINE MAMMOGRAM AND CLINICAL EVALUATION IN 12 MONTHS. PLEASE NOTE: A NORMAL MAMMOGRAM DOES NOT EXCLUDE THE POSSIBILITY OFBREAST CANCER. A CLINICALLY SUSPICIOUS PALPABLE LUMP SHOULD BE BIOPSIED. Dictated by: Marcellus Ross M.D. on 02/03/2024 at 14:23 Approved by: Marcellus Ross M.D. on 02/03/2024 at 14:25 Dictated By: Marcellus Ross M.D. Signed By:02/03/24 1426 DD/ 1425 TD/TT: Ruffler: Authorizing ProviderResult TypeResult StatusBrian J Printy MDCLINISYNC IMAGING Final Result * IGP, APT HPV,RFX 16/18,45 (01/31/2024 10:40 AM EDT)ComponentValueRef RangeTest MethodAnalysis TimePerformed AtPathologist SignatureDiagnosis:CommentLABCORP Comment:NEGATIVE FOR INTRAEPITHELIAL LESION OR MALIGNANCY.Specimen Adequacy: CommentLABCORPComment: Satisfactory for evaluation. ??Endocervical and/or squamous metaplastic cells (endocervical component) are present. Clinician Provided ICD10:CommentLABCORPComment: Z12.4 Z11.51 Performed By:CommentLABCORPComment:Sharon Duff, Animal Control Specialist ([facility])Cyto Comments.LABCORPNote:CommentLABCORPComment: The Pap smear is a screening test designed to aid in the detection of premalignant and malignant conditions of the uterine cervix. ??It is not a diagnostic procedure and should not be used as the sole means of detecting cervical cancer. ??Both false-positive and false-negative reports do occur. Test Methodology:CommentLABCORPComment: This liquid based ThinPrep(R) pap test was screened with the use of an image guided system. HPV AptimaNegativeNegativeLABCORPComment: This nucleic acid amplification test detects fourteen high-risk HPV types (16,18,31,33,35,39,45,51,52,56,58,59,66,68) without differentiation. Specimen (Source)Anatomical Location / LateralityCollection Method / Volume Collection TimeReceived TimeVaginal Fluid01/31/2024 10:40 AM EDT1 Narrative [facility] - 02/04/2024 10:08 AM EDT Performed at: 01 - [facility] ??[id number] Mis Director: Vera Giraldo MD, Phone: ??[phone] Performed at: ??02 - [facility] [address] ??[id number] Mis Director: Vear Giraldo MD, Phone: ??[phone] Specimen Comment: No. of containers..01 ThinPrep Vial Authorizing ProviderResult TypeResult StatusLeo Esteban MDLAB BLOOD ORDERABLESFinal ResultPerforming OrganizationAddressCity/State/ZIP CodePhone Number [facility] * THINPREP TIS PAP AND HPV MRNA E6/E7 REFLEX HPV 16,18/45 (70895) (12/20/2020) ComponentValueRef RangeTest MethodAnalysis TimePerformed AtPathologist SignatureCLINICAL INFORMATION:None givenNOMS LEGACY EXTERNAL LABLMP:MENOPAUSAL [facility] EXTERNAL LABPREV. PAP:NONE GIVENNOMS LEGACY EXTERNAL LABPREV. BX: NONE GIVENNOMS LEGACY EXTERNAL LABSOURCE:CervixNOMS LEGACY EXTERNAL LAB STATEMENT OF ADEQUACY:SATISFACTORY FOR EVALUATIONNOMS LEGACY EXTERNAL LAB INTERPRETATION/RESULT:SEE COMMENTNOMS LEGACY EXTERNAL LABComment: Negative for intraepithelial lesion or malignancy. Atrophic pattern; predominantly parabasal cells COMMENT:SEE COMMENTNOMS [facility] EXTERNAL LABComment: This Pap test has been evaluated with computer assisted technology. Parabasal cells in smears that lack maturation due to atrophy or other hormonal reasons cannot be differentiated from transformation zone cells. Accordingly, presence or absence of endocervical or transformation zone components cannot be reported in this patient. MEDICAID BILLING CLERK:SEE COMMENTNOOLYMPIC MEMORIAL [facility] EXTERNAL LABComment: LINA HARDEN(ASCP) CT screening location: [facility], [address] [place] [address]. COMMENTSEE COMMENTNOOLYMPIC MEM[facility] EXTERNAL LABComment: EXPLANATORY NOTE: The Pap is a screening test for cervical cancer. It is not a diagnostic test and is subject to false negative and false positive results. It is most reliable when a satisfactory sample, regularly obtained, is submitted with relevant clinical findings and history, and when the Pap result is evaluated along with historic and current clinical information. HPV MRNA E6/E7Not DetectedNot DetectedNOOLYMPIC MEMORIAL HOSPITAL EXTERNAL LABComment: Methodology: Signal Tower Director-Mediated Amplification This assay detects E6/E7 viral messenger RNA (mRNA) from 14 high-risk HPV types (16,18,31,33,35,39,45,51,52,56,58,59,66,68). The analytical performance characteristics of this assay have been determined by [employer]. The modifications have not been cleared or approved by the FDA. This assay has been validated pursuant to the CLIA regulations and is used for clinical purposes. For additional information, please refer to http://education.[employer].Sophono/faq/EQG153t1 (This link if provided for information/ educational purposes only.) Specimen (Source)Anatomical Location / LateralityCollection Method / Volume Collection TimeReceived Time12/20/2020 Narrative Authorizing ProviderResult TypeResult StatusLeo MILLER LABSFinal ResultPerforming OrganizationAddressCity/State/ZIP CodePhone Number [facility] from Last 3 Months or Most Recently Relevant to Health Maintenance Insurance Care Teams Team MemberRelationshipSpecialtyStart DateEnd Date Lillian Zepeda MD [address] [facility] [place] [address] PCP - GeneralFaarly Medicine09/10/22
--- OUTSIDE RECORDS SUMMARY | 2025-02-05 13:07 | XMS_ITS | CCD ---
Author Organization [facility] Care Team Providers Care Book Repairer Name Role Phone Sergio Cowan Unavailable David Cowan Unavailable MD Destin Harper Attending Provider MD David Cowan Primary Care Provider Moshe Saini Unavailable Destin Harper Unavailable PARAG ., DR NICK Rhodes Attending Unavailable GARSIA ., DR NICK Rhodes Admitting Unavailable ESPINO ., NALLELY Consulting Unavailable COWAN, DR DAVID Cabral Primary Care Unavailable GARSIA ., DR NICK Rhodes Consulting Unavailable GARSIA ., DR NICK Rhodes Attending Unavailable GARSIA ., DR NICK Rhodes Admitting Unavailable COWAN, DR DAVID Cabral Primary Care Unavailable CWOAN, DR DAVID Cabral Primary Care Unavailable GARSIA ., DR NICK Rhodes Admitting Unavailable GARSIA ., DR NICK Rhodes Attending Unavailable ESPINO ., NALLELY Consulting Unavailable GARSIA ., DR NICK Rhodes Admitting Unavailable GARSIA ., DR NICK Rhodes Attending Unavailable COWAN, DR DAVID Cabral Primary Care Unavailable ARLENE ., MELISSA Attending Unavailable ARLENE ., MELISSA Admitting Unavailable CAMRYN, DR DAVID Cabral Primary Care Unavailable ARLENE ., MELISSA Consulting Unavailable ARLENE ., MELISSA Attending Unavailable ARLENE ., MELISSA Admitting Unavailable CAMRYN, DR DAVID Cabral Primary Care Unavailable ARLENE ., MELISSA Attending Unavailable ARLENE ., MELISSA Admitting Unavailable ARLENE ., MELISSA Consulting Unavailable CAMRYN, DR DAVID Cabral Primary Care Unavailable CAMRYN, DR DAVID Cabral Primary Care Unavailable CAMRYN, DR DAVID Cabral Attending Unavailable CAMRYN, DR DAVID Cabral Admitting Unavailable TERRY, DR EMI Au Consulting Unavailable CAMRYN, DR DAVID Cabral Consulting Unavailable TERRY, DR EMI Au Consulting Unavailable CAMRYN, DR DAVID Cabral Primary Care Unavailable CAMRYN, DR DAVID Cabral Attending Unavailable CAMRYN, DR DAVID Cabral Admitting Unavailable CAMRYN, DR DAVID Cabral Consulting Unavailable PRINTSoraya, DR BAILEY Attending Unavailable PRINTY, DR BAILEY Admitting Unavailable ZIEBER, DR SRINIVAS Lai Consulting Unavailable CAMRYN, DR DAVID Cabral Primary Care Unavailable PRINTY, DR BAILEY Consulting Unavailable ARLENE ., MELISSA Consulting Unavailable ARLENE ., MELISSA Attending Unavailable ARLENE ., MELISSA Admitting Unavailable CAMRYN, DR DAVID Cabral Primary Care Unavailable MD David Cowan Primary Care Provider MD Destin Harper Attending Provider DO Moshe Saini Attending Provider [phone] MD David Cowan Primary Care Provider DO Terry Sainiin A Attending Provider [phone] MD David Cowan Primary Care Provider DO Yeny Moshe A Attending Provider MD David Cowan Primary Care Provider [phone] DO Yeny Moshe A Attending Provider [phone] Moshe Saini Admitting Unavailable David Cowan Primary Care Unavailable Moshe Saini Attending Unavailable David Cowan Primary Care Unavailable Moshe Saini Attending Unavailable Moshe Sanii Admitting Unavailable David Cowan MD Primary Care Provider LUIS MIGUEL MATUTE Attending Unavailable David Cowan MD Primary Care Provider [phone] Allergies Allergy ClassificationReported Allergen(s)Allergy TypeDate of OnsetReaction(s) Facility (20 sources)Angiotensin-converting enzyme inhibitor agentDrug allergyUnknoBothwell Regional Health Center [employer] Other (13 sources)Angiotensin Converting Enzyme (Srinath) Inhibitors; Translations: [Srinath Inhibitors]Allergy to -98-4995KcswmafFpxmhdnuwMercy [facility] (11 sources)benazeprilDrug Rgnqxoa68-30-5669LcgbcooZrdrz [employer] Other (4 sources)patient allergy list reviewed by nurse or physiciaPropensity to adverse vilglcmsy60-02-8611Ukpoygx:DoneNort [employer] Other (4 sources)Allergies ReconciledPropensity to adverse reactionsUnknowCrittenton Behavioral Health [employer] Other (6 sources)AtenololPropensity to adverse iznotjnmy58-54-2030K[facility] Medications Current Medications MedicationDrug Class(es)DatesSig (Normalized)Sig (Original)acetaminophen 500 mg oral tablet (20 sources)Start: 49-11-5417ntym 500 mg by mouth three times dailyAcetaminophen Active 500 MG PO Three times daily October 21, 2022 12:00amStart: 76-57-7873uqcj 2 tablets by mouth every eight hoursAcetaminophen 500 MG 2 tablets Orally Every 8 hours for 30 days DO NOT FILL UNTIL 11/02/2022 SHELLY # [id number] Oct, Not-Taking/PRNamoxicillin 500 mg oral tablet (1 source)Penicillin-class AntibacterialStart: 98-08-5310qloj 4 tablets by mouth every hourAmoxicillin 500 MG 4 tablets Orally 1 hour prior to procedure for 1 days Apr, Activeatorvastatin 20 mg oral tablet (15 sources)HMG-CoA Reductase InhibitorStart: 60-78-2978eelpoerqwqzk (Lipitor) 20 MG tablet 11/28/2023 ActiveStart: 65-60-5549khtk 1 tablet by mouth once daily Atorvastatin Active 0 .ROUTE .COMPLEX October 18, 2023 8:33am take 1 tablet by mouth once dailyStart: 06-15-2023 End: 39-73-3797drla 1 tablet by mouth once dailyAtorvastatin Discontinued 0 .ROUTE .COMPLEX June 15, 2023 4:13pm October 18, 2023 8:33am take 1 tablet by mouth once dailyStart: 06-15-2023 End: 12-77-4491dqfb 20 mg by mouth once dailyAtorvastatin Discontinued 20 MG PO Daily June 15, 2023 1:00am June 15, 2023 4:13pmtake 1 tablet by mouth every twenty-four hoursAtorvastatin Calcium 20 MG 1 tablet Orally Once a day for 30 days ActiveCalcium + D 500-1000-40 MG-UNT-MCG (18 sources)Calcium + D 500-1000-40 MG-UNT-MCG as directed Orally Activecalcium acetate 667 mg oral capsule (6 sources)calcium acetate (Phoslo) 667 MG capsule Take by mouth 3 (three) times a day with meals. Activecalcium carbonate 1500 mg / cholecalciferol 200 unt oral tablet (8 sources)Vitamin DStart: 24-10-4268qqtt 1 tablet by mouth once daily in the morningCalcium Carbonate-Vitamin D3 (Calcium + D) 600 mg-5 mcg (200 unit) Tablet Active 1 TAB PO Every morning June 23, 2022 12:00amcalcium carbonate 1250 mg / cholecalciferol 1000 unt / vitamin k 0.4 mg chewable tablet (4 sources)Vitamin DCalcium + D 500-1000-40 MG-UNT-MCG as directed Orally Active chondroitin sulfates 400 mg / glucosamine sulfate 500 mg oral tablet (6 sources)take 1 tablet by mouth in the morning, then take 1 tablet by mouth in the evening, then take 1 tablet by mouth at bedtimeglucosamine-chondroitin 500- 400 MG tablet Take 1 tablet by mouth in the morning and 1 tablet in theevening and 1 tablet before bedtime. ActiveDiclofenac Sod & Trolamine Josue (7 sources)Diclofenac Sod & Trolamine Josue Activedocusate sodium 100 mg oral capsule (1 source)Start: 66-64-7394tvkj 1 capsule by mouth every twelve hoursColace 100 MG 1 capsule Orally Twice a day for 14 days DO NOT FILL UNTIL 11/02/2022 SHELLY # [id number] Oct, 2022 Activedoxycycline hyclate 100 mg oral tablet (1 source)Tetracycline-class DrugStart: 00-35-8244wwws 1 tablet by mouth every twelve hoursDoxycycline Hyclate 100 MG 1 tablet Orally Twice a day for 7 days DO NOT FILL UNTIL 11/02/2022 SHELLY # [id number] Oct, ActiveFLUoxetine 20 mg oral capsule (15 sources)Serotonin Reuptake InhibitorStart: 81-85-9433XTXekscohx (PROzac) 20 MG capsule .COMPLEX 10/18/2023 ActiveStart: 06-15-2023 End: 12-79-0058rwps 1 capsule by mouth once dailyFluoxetine Active 0 .ROUTE .COMPLEX October 18, 2023 8:33am take 1 capsule by mouth once dailyStart: 06-15-2023 End: 84-98-7560gwoo 20 mg by mouth once dailyFluoxetine Discontinued 20 MG PO Daily June 15, 2023 1:00am June 15, 2023 4:13pmStart: 27-57-4451okaz 1 capsule by mouth every twenty-four hoursFLUoxetine HCl 10 MG 1 capsule Orally Once a day for 30 day(s) Mar, Activetake 1 capsule by mouth every twenty-four hoursFLUoxetine HCl 20 MG 1 capsule Orally Once a day for 30 days ActiveGlucos Sul 5qne-Snu-Dgyvw-C-Mn (Glucosamine Chondroitin) 550-30-1 mg Capsule (5 sources)Start: 49-44-7836degy 1 capsule by mouth once daily in the morning Glucos Sul 0ujb-Aze-Elleu-C-Mn (Glucosamine Chondroitin) 550-30-1 mg Capsule Active 1 CAP PO Every morning October 20, 2022 11:00pmStart: 46-02-5579yfne 1 capsule by mouth once daily in the morningGlucos Sul 7rke-Lzk-Pepcl-C-Mn (Glucosamine Chondroitin) 550-30-1 mg Capsule Active 1 CAP PO Every morning October 21, 2022 12:00amMaca 500 MG (20 sources)Viki 500 MG as directed Orally ActiveMaca Extract (8 sources)Start: 18-32-6302dljn 500 mg by mouth once daily in the morningMaca Extract Active 500 MG PO Every morning June 22, 2022 11:00pmStart: 06-23-2022 take 500 mg by mouth once daily in the morningMaca Extract Active 500 MG PO Every morning June 23, 2022 12:00amStart: 75-39-0710uwcx 500 mg by mouth once dailyMaca Extract Active 500 MG PO Daily June 23, 2022 12:00amMulti For Her - (20 sources)Multi For Her - as directed Orally ActiveMultiple Vitamins-Minerals (Multivitamin) liquid (6 sources)Multiple Vitamins-Minerals (Multivitamin) liquid Orally Active Multivitamin preparation (8 sources)Start: 28-15-1037lsyj 1 tablet by mouth once daily in the morning Multivitamin Active 1 TAB PO Every morning June 22, 2022 11:00pmStart: 37-78-8353gpkk 1 tablet by mouth once daily in the morningMultivitamin Active 1 TAB PO Every morning June 23, 2022 12:00amStart: 15-89-1087wqgk 1 tablet by mouth once dailyMultivitamin Active 1 TAB PO Daily June 23, 2022 12:00am naproxen 500 mg oral tablet (20 sources)Nonsteroidal Anti-inflammatory DrugStart: 78-17-0044emux 500 mg by mouth twice dailyNaproxen Active 500 MG PO Twice daily October 21, 2022 12:00am oxyCODONE hydrochloride 5 mg oral tablet (1 source)Opioid AgonistStart: 30-39-1253hpjq 1 tablet by mouth every four hours as needed for painoxyCODONE HCl 5 MG 1 tablet Orally Every 4 hours, as needed for pain for 7 days DO NOT FILL UNTIL 11/02/2022 SHELLY # [id number] Oct, Kriyom18 hr propranolol hydrochloride 80 mg extended release oral capsule (20 sources)beta-Adrenergic BlockerStart: 54-85-8994dgjsrkqnjtu LA (Inderal LA) 80 MG 24 hr capsule 11/20/2024 ActiveStart: 07-15-5281ucty 1 capsule by mouth once dailypropranolol LA (Inderal LA) 120 MG 24 hr capsule Indications: Tremor take 1 capsule by mouth once daily 90 capsule 10/18/2023 ActiveStart: 04-16-2022 End: 84-48-0958zddq 1 capsule by mouth every twenty-four hours in the morning propranolol LA (Inderal LA) 80 MG 24 hr capsule Take 80 mg by mouth in the morning. 04/16/2022 01/31/2024 Discontinued (Ineffective)Turmeric Curcumin 5- 1000 MG (10 sources)Turmeric Curcumin 5-1000 MG as directed Orally Active Completed/Discontinued Medications MedicationDrug Class(es)DatesSig (Normalized)Sig (Original)aspirin 81 mg chewable tablet (11 sources)Platelet Aggregation Inhibitor, Nonsteroidal Anti-inflammatory Drug Start: 13-87-7966igig 1 tablet by mouth every twelve hoursAspirin 81 MG 1 tablet Orally Twice a day for 37 days DO NOT FILL UNTIL 11/02/2022 SHELLY # [id number] Oct, Not-Taking/PRNatenolol 25 mg oral tablet (20 sources)beta-Adrenergic BlockerAtenolol 25 MG Oral for 30 Days Not-Taking/PRNcyclobenzaprine hydrochloride 10 mg oral tablet (20 sources)Muscle RelaxantStart: 26-84-7578sehx 0.5-1 tablets by mouth every eight hours as neededCyclobenzaprine HCl 10 MG 1/2 to 1 tab Orally Every 8 hours for 14 days DO NOT FILL UNTIL 11/02/2022 SHELLY # [id number] Oct, Not-Taking/PRNStart: 06-23-2022 End: 54-48-2235eisk 5 mg by mouth once dailyCyclobenzaprine Discontinued 5 MG PO Daily June 23, 2022 12:00am November 10, 2023 3:52pmdiclofenac sodium 50 mg delayed release oral tablet (20 sources)Nonsteroidal Anti-inflammatory DrugStart: 06-23-2022 End: 04-72-5036qthd 50 mg by mouth twice dailyDiclofenac Sodium Discontinued 50 MG PO Twice daily June 23, 2022 12:00am October 21, 2022 3:36pmtake 1 capsule by mouth every eight hoursDiclofenac 35 MG 1 capsule as needed Orally Three times a day Not-Taking/PRNmethylPREDNISolone 4 mg oral tablet (20 sources)CorticosteroidStart: 74-42-0368cokmiwDRHWGSNhmngs 4 MG as directed Orally for 6 days May, Not-Taking/PRNtraMADol hydrochloride 50 mg oral tablet (20 sources)Opioid AgonistStart: 10-21-2022 End: 34-16-0436brtp 50 mg by mouth once dailyTramadol Discontinued 50 MG PO Daily October 21, 2022 12:00am November 10, 2023 3:53pmStart: 76-50-2419auoq 1 tablet by mouth every four hourstraMADol HCl 50 MG 1 tablet Orally Every 4 hours for 7 days DO NOT FILL UNTIL 11/02/2022 SHELLY # [id number] Oct, Not-Taking/PRNTurmeric Root Extract (8 sources)Start: 06-23-2022 End: 05-62-8317wjdu 500 mg by mouth once dailyTurmeric Root Extract Discontinued 500 MG PO Daily June 22, 2022 11:00pm October 21, 2022 2:37pmStart: 06-23-2022 End: 20-61-3007feyw 500 mg by mouth once dailyTurmeric Root Extract Discontinued 500 MG PO Daily June 23, 2022 12:00am October 21, 2022 3:37pmStart: 06-23-2022 take 500 mg by mouth once dailyTurmeric Root Extract Active 500 MG PO Daily June 23, 2022 12:00am Problems Active Problems Problem ClassificationProblemDateDocumented DateEpisodic/ChronicAcquired foot deformities (6 sources)Acquired hallux malleus; Translations: [Other hammer toe(s) (acquired), left foot]Onset: 538528-83-2313MeqxaluQfmcvfb disorders (6 sources)Generalized anxiety disorder; Translations: [Generalized anxiety disorder]ChronicDisorders of lipid metabolism (7 sources)Hyperlipidemia; Translations: [Hyperlipidemia, unspecified]Chronic Essential hypertension (20 sources)Essential hypertension; Translations: [Essential (primary) hypertension]Onset: 54-78-3530BbrxwgmDmhgt and electrolyte disorders (4 sources)Hyperkalemia; Translations: [Hyperkalemia]EpisodicImmunizations and screening for infectious disease (2 sources)Patient encounter status; Translations: [Encounter for screening for human papillomavirus (HPV)]75-41-3053QihfypscEerwsighbcrbc (20 sources)Cervical lymphadenopathy; Translations: [Localized enlarged lymph nodes]EpisodicOsteoarthritis (20 sources)Arthropathy of right hip joint; Translations: [Unilateral primary osteoarthritis, right hip]Onset: 09-11-2021 Resolved: 46-66-2764TjqwjfxWtsqf acquired deformities (20 sources)Lumbar spondylolisthesis; Translations: [Spondylolisthesis, lumbar region]EpisodicOther acquired deformities (6 sources)Spondylolisthesis, lumbar region; Translations: [SPONDYLOLISTHESIS LUMBAR REGION]Onset: 09-11-2021 Resolved: 67-24-5455CvmcuskmHoaft circulatory disease (4 sources)Elevated blood-pressure reading without diagnosis of hypertension; Translations: [Elevated blood-pressure reading, without diagnosis of hypertension]EpisodicOther connective tissue disease (10 sources)History of total hip arthroplasty; Translations: [Presence of left artificial hip joint]ChronicOther connective tissue disease (7 sources)Presence of left artificial hip joint; Translations: [Hip joint replacement]Onset: 54-14-6749AsqdjzyVksvd connective tissue disease (2 sources)Hip joint prosthesis present; Translations: [Presence of left artificial hip joint]64-80-8471CyirebqQptke connective tissue disease (20 sources)Trochanteric bursitis; Translations: [Trochanteric bursitis, right hip]EpisodicOther nervous system disorders (20 sources)Tremor; Translations: [Tremor, unspecified]EpisodicOther non- traumatic joint disorders (20 sources)Arthralgia of the lower leg; Translations: [Pain in right knee] EpisodicOther nutritional; endocrine; and metabolic disorders (4 sources)Body mass index 30+ - obesity; Translations: [Body mass index (BMI) 30.0-30.9, adult]ChronicOther nutritional; endocrine; and metabolic disorders (4 sources)Obese class I; Translations: [Body mass index (BMI) 31.0-31.9, adult] ChronicOther screening for suspected conditions (not mental disorders or infectious disease) (16 sources)Encounter for screening mammogram for malignant neoplasm of breast; Translations: [Mammography abnormal]Onset: 44-19-9400CrrvhvvuDqvnkcwo codes; unclassified (4 sources)Family history of malignant neoplasm of gastrointestinal tract; Translations: [Family history of malignant neoplasm of digestive organs]Episodic Residual codes; unclassified (4 sources)Family history of diabetes mellitus; Translations: [Family history of diabetes mellitus]EpisodicSpondylosis; intervertebral disc disorders; other back problems (20 sources)Degeneration of lumbar intervertebral disc; Translations: [Other intervertebral disc degeneration, lumbar region]Onset: 84-64-5092Vjoymvi Spondylosis; intervertebral disc disorders; other back problems (20 sources)Lumbar radiculopathy; Translations: [Radiculopathy, lumbar region] Onset: 34-05-6176SuckvmekRcjofalkczfv (4 sources)LOW BACK PAIN, UNSPECIFIED; Translations: [LOW BACK PAIN, UNSPECIFIED]Onset: 85-03-7787Zqrfjkvldghr (1 source)Unilateral primary osteoarthritis, left hip; Translations: [Unilateral primary osteoarthritis, lefthip]Onset: 04-21-2023 Past or Other Problems Problem ClassificationProblemDateDocumented DateEpisodic/ChronicAbdominal pain (1 source)Lower abdominal pain, unspecified; Translations: [LOWER ABDOMINAL PAIN UNSPECIFIED]Onset: 54-37-3701LbrsduioIxgsv connective tissue disease (6 sources)Trochanteric bursitis, right hip; Translations: [TROCHANTERIC BURSITIS RIGHT HIP]Onset: 09-11-2021 Resolved: 39-81-7053PmkwpadnZvvwg connective tissue disease (1 source)Trochanteric bursitis, left hip; Translations: [TROCHANTERIC BURSITIS LEFT HIP]Onset: 65-57-7943JfiechtlLjnzw eye disorders (4 sources)Disorder of eye; Translations: [Unspecified disorder of globe]Onset: 80-61-2950XkdxmkfrAvbjm fractures (6 sources)History of stress fracture; Translations: [Personal history of (healed) stress fracture]Onset: 161636-78-0747QzohqqfnMhqgb non-traumatic joint disorders (5 sources)Pain in right hip; Translations: [PAIN IN RIGHT HIP]Onset: 05-18-2022 EpisodicOther non-traumatic joint disorders (2 sources)Pain in left hip; Translations: [PAIN IN LEFT HIP]Onset: 05-19-2022 EpisodicOther skin disorders (4 sources)Nail bed infection; Translations: [Onychia and paronychia of toe] Onset: 61-91-0387WygfpeesXobybmbl codes; unclassified (1 source)Family history of malignant neoplasm of ovary; Translations: [FAM HX MALIGNANT NEOPLASM OVARY]Onset: 22-28-1393CqgeaxgaBkydbhfs codes; unclassified (1 source)Family history of malignant neoplasm of trachea, bronchus and lung; Translations: [FAM HX MALIG NEOPLSM TRACH BRON LNG]Onset: 57-23-4425Bvtctaro Residual codes; unclassified (1 source)Family history of malignant neoplasm of digestive organs; Translations: [FAM HX MALIG NEOPLASM DIGESTIV ORGN]Onset: 19-01-7437Xxidbyyg Unclassified (1 source)LOW BACK PAIN, UNSPECIFIED; Translations: [LOW BACK PAIN, UNSPECIFIED] Onset: 10-03-2021 Results Test NameValueInterpretationReference RangeFacilityXR hip LT min 2V(w/wo pelvis)*on 25-31-9859XC hip LT min 2V(w/wo pelvis)*[facility] [address] [place] [address] XRay Report Signed Patient: Xuan Irby MR#: [id number] [birth year] : 1965 Acct:[id number] Age/Sex: 58 / F ADM Date: 11/10/23 Loc: [facility] Room: Type: [facility] CLI Attending Dr: Moshe Saini DO Copies to: [...] COMPLICATION.. Impression dictated by: Nate Marcano Jr., D.O.11/10/2023 4:01 PM Dictation Location: [place] [address] Transcribed By: [facility] 11/10/23 1601 Dictated By: Nate Marcano Jr, DO 11/10/23 1601 Signed By: 11/10/[address] [place] [address] Physician GroupXR hip LT min 2V(w/wo pelvis)*on 42-71-5221UW hip LT min 2V(w/wo pelvis)*[facility] [place] [address] XRay Report Signed Patient: Xuan Irby MR#: [id number] 86 : 1965 Acct:[id number] Age/Sex: 58 / F ADM Date: 04/21/23 Loc: [facility] Room: Type: [facility] CLI Attending Dr: Moshe Saini DO Copies to: [...] COMPLICATION.. Impression dictated by: Nate Marcano Jr., D.OSaúl04/21/2023 4:19 PM Dictation Location: [facility] Transcribed By: [facility] 04/21/231618 Dictated By: Nate Marcano Jr, DO 04/21/231618 Signed By: 04/21/23 1619[facility] Physician GroupXR hip LT min 2V(w/wo pelvis)* [facility] [employer] Other XR hip LT min 2V(w/wo pelvis)*[facility] [employer] Other XR hip LT min 2V(w/wo pelvis)*[address] [place] [address] [employer] Other XR hip LT min 2V(w/wo pelvis)*MARC[place] [address]Mhquy [employer] Other XR hip LT min 2V(w/wo pelvis)*[facility] ReportEstell Manor [employer] Other XR hip LT min 2V(w/wo pelvis)*SignedEstell Manor [employer] Other XR hip LT min 2V(w/wo pelvis)*Patient: Xuan Irby MR#: [id number] [employer] Other XR hip LT min 2V(w/wo pelvis)*84[place] [employer] Other XR hip LT min 2V(w/wo pelvis)*: 1965 Acct:[id number] [employer] Other XR hip LT min 2V(w/wo pelvis)*Age/Sex: 58 / F ADM Date: 04/21/23[place] [employer] Other XR hip LT min 2V(w/wo pelvis)*Loc: [facility] Room: Type: [facility] [employer] Other XR hip LT min 2V(w/wo pelvis)*Attending Dr: Moshe Saini [employer] Other XR hip LT min 2V(w/wo pelvis)*Copies to: Moshe Saini, [employer] Other XR hip LT min 2V(w/wo pelvis)*Ordering Provider: Moshe SainiRenmatix Other XR hip LT min 2V(w/wo pelvis)*Date of Service: 04/21/23[place] [employer] Other XR hip LT min 2V(w/wo pelvis)* XR/XR hip LT min 2V(w/wo pelvis)*: Primary osteoarthritis of left [facility]Nosaint [facility] [employer] Other XR hip LT min 2V(w/wo pelvis)*LEFT HIP - 2 views:[employer] Other XR hip LT min 2V(w/wo pelvis)*CLINICAL HISTORY: Status post left [facility] Other XR hip LT min 2V(w/wo pelvis)*COMPARISON: Left hip 11/03/2022[place] [employer] Other XR hip LT min 2V(w/wo pelvis)*FINDINGS: Left DIANE without radiographic complication.[employer] Other XR hip LT min 2V(w/wo pelvis)* XR/XR hip LT min 2V(w/wo pelvis)*[employer] Other XR hip LT min 2V(w/wo pelvis)*IMPRESSION:[employer] Other XR hip LT min 2V(w/wo pelvis)*NO EVIDENCE OF HARDWARE COMPLICATION..[employer] Other XR hip LT min 2V(w/wo pelvis)*Impression dictated by: Nate Marcano Jr., D.OSaúl04/21/2023 4:19 PM[place] [employer] Other XR hip LT min 2V(w/wo pelvis)*Dictation Location: [id number] [employer] Other XR hip LT min 2V(w/wo pelvis)*Transcribed By: JUANIS 04/21/[address] [place] [address] [employer] Other XR hip LT min 2V(w/wo pelvis)*Dictated By: Nate Marcano Jr, DO 04/21/[address] [place] [address] [employer] Other XR hip LT min 2V(w/wo pelvis)*Signed By:[facility] [facility] [employer] Other XR hip LT min 2V(w/wo pelvis)*04/21/[address] [place] [address] [employer] Other Alanine aminotransferase [Enzymatic activity/volume] in Serum or PlasmaOrdered By: Moshe Saini on 12-46-5791BIP [Catalytic activity/Vol]10 U/L7-52[facility] HospitalAlbumin [Mass/volume] in Serum or Plasma by Bromocresol green (BCG) dye binding methoOrdered By: Moshe Saini on 57-17-1844Meseqzh BCG dye [Mass/Vol]4.5 g/dL3.5-5.7FBarberton Citizens HospitalAlkaline phosphatase [Enzymatic activity/volume] in Serum or PlasmaOrdered By: Moshe Saini on 16-32-1129ZOO [Catalytic activity/Vol]77 U/L 34-104[facility] HospitalAspartate aminotransferase [Enzymatic activity/volume] in Serum or PlasmaOrdered By: Moshe Saini on 14-81-2439VZF [Catalytic activity/Vol]15 U/L29-68KiskfvrixMercy Health Clermont HospitalBasophils Auto (Bld) [#/Vol]Ordered By: Moshe Saini on 30-77-4656Ylyodoefg (Bld) [#/Vol] 0.1 10*3/uL0.0-0.2FBarberton Citizens HospitalBasophils/100 WBC Auto (Bld) Ordered By: Moshe Saini on 36-02-3848Xocnyoqax/100 WBC (Bld)0.8 %.[facility] HospitalBilirubin Test strip Ql (U)Ordered By: Moshe Saini on 28-68-6377Bgbgpdjow Ql (U)NegativeNegativeMercy Health Clermont Hospital Bilirubin.total [Mass/volume] in Serum or PlasmaOrdered By: Moshe Saini on 51-59-8566Dfeibgybv [Mass/Vol]0.4 mg/dL0.3-1.0[facility] Calcium [Mass/volume] in Serum or PlasmaOrdered By: Moshe Saini on 10-21-2022 Calcium [Mass/Vol]9.6 mg/dL8.6-10.3FBarberton Citizens HospitalCarbon dioxide, total [Moles/volume] in Serum or PlasmaOrdered By: Moshe Saini on 05-14-4724NR0 [Moles/Vol]28.3 mmol/L21.0-31.0[facility] Chloride [Moles/volume] in Serum or PlasmaOrdered By: Moshe Saini on 89-03-7466Ftdneogx [Moles/Vol]101 mmol/P29-885MjgjwrnkhMercy Health [facility] Hospital Color Auto (U)Ordered By: Moshe Saini on 88-35-8317Iiado (U)YellowYellow [facility] HospitalCreatinine [Mass/volume] in Serum or Plasma Ordered By: Moshe Saini on 17-54-8525Uutwhcljvl [Mass/Vol]0.68 mg/dL0.60-1.20 [facility] HospitalEosinophils Auto (Bld) [#/Vol]Ordered By: Moshe Saini on 95-62-6661Ewzmrlnnopa (Bld) [#/Vol]0.3 10*3/uL0.0-0.45[facility] HospitalEosinophils/100 WBC Auto (Bld)Ordered By: Moshe Saini on 81-02-4383Vnkpgdssroj/100 WBC (Bld)3.1 %.[facility] Erythrocyte distribution width Auto (RBC) [Ratio]Ordered By: Moshe Saini on 66-08-7506Jchehkpigxi distribution width (RBC) [Ratio]13.2 %11.9-15.3FBarberton Citizens HospitalGlobulin Calc (S) [Mass/Vol]Ordered By: Moshe Saini on 27-19-4340Dymqphpu (S) [Mass/Vol]2.7 g/dLMercy Health Clermont Hospital Glucose [Mass/volume] in Serum or PlasmaOrdered By: Moshe Saini on 10-21-2022 Glucose [Mass/Vol]83 mg/zB30-836TpwqlmrfpMercy Health Clermont HospitalHematocrit Auto (Bld) [Volume fraction]Ordered By: Moshe Saini on 55-11-1702Ufutzuplro (Bld) [Volume fraction]38.0 %34.0-46.4FBarberton Citizens HospitalHemoglobin [Mass/volume] in BloodOrdered By: Moshe Saini on 85-09-2664Qyjqpusmyy (Bld) [Mass/Vol]13.2 g/dL11.8-15.4FBarberton Citizens HospitalKetones Auto test strip (U) [Mass/Vol]Ordered By: Moshe Saini on 39-02-0787Fnjnjxz (U) [Mass/Vol]NegativeNegativeMercy Health Clermont HospitalLeukocytes [#/volume] corrected for nucleated erythrocytes in Blood by Automated counOrdered By: Moshe Saini on 90-14-4701DWL corrected for nucl RBC Auto (Bld) [#/Vol]8.4 10*3/uL3.8-11.6FBarberton Citizens HospitalLymphocytes Auto (Bld) [#/Vol] Ordered By: Moshe Saini on 38-87-0139Btnvbjkcycd (Bld) [#/Vol]2.4 10*3/uL 1.00-4.8[facility] HospitalLymphocytes/100 WBC Auto (Bld)Ordered By: Moshe Saini on 36-15-0118Fcookcndlmw/100 WBC (Bld)28.9 %.[facility] Auto (RBC) [Entitic mass]Ordered By: Moshe Saini on 42-60-0316VKE (RBC) [Entitic mass]31.5 pg24.7-34.3FBarberton Citizens HospitalMC Auto (RBC) [Mass/Vol]Ordered By: Moshe Saini on 41-79-6263RGJR (RBC) [Mass/Vol]34.9 g/dL32.0-35.0[facility] HospitalMCV Auto (RBC) [Entitic vol]Ordered By: Moshe Saini on 67-58-3635AWC (RBC) [Entitic vol]90.3 eP65-192BratwudsmMercy Health Clermont HospitalMonocytes Auto (Bld) [#/Vol] Ordered By: Moshe Saini on 08-03-3978Szflkypef (Bld) [#/Vol]1.0 10*3/uL0.0-0.8 [facility] HospitalMonocytes/100 WBC Auto (Bld)Ordered By: Moshe Saini on 73-90-5055Yvremhbwe/100 WBC (Bld)12.3 %.[facility] HospitalNeutrophils Auto (Bld) [#/Vol]Ordered By: Moshe Saini on 10-21-2022 Neutrophils (Bld) [#/Vol]4.6 10*3/uL1.8-7.7FBarberton Citizens Hospital Neutrophils/100 WBC Auto (Bld)Ordered By: Moshe Saini on 10-21-2022 Neutrophils/100 WBC (Bld)54.9 %.[facility] HospitalNitrite Test strip Ql (U)Ordered By: Moshe Saini on 76-40-3915Qjmwgad Ql (U)Negative NegativeMercy Health Clermont HospitalNo Panel InformationOrdered By: Moshe Saini on 67-35-9781Tynssqyym GFR (CKD-EPI)> 60.0 mL/MinMercy Health Clermont HospitalPharmacy Creatinine Clearance (ChemN/AFBarberton Citizens HospitalNucleated erythrocytes [Presence] in Blood by Automated countOrdered By: Moshe Saini on 03-07-6940Jlkmfvqzf RBC Auto Ql (Bld)0.1 /100{WBC}0-0.5 [facility] HospitalPlatelet mean volume Auto (Bld) [Entitic vol] Ordered By: Moshe Saini on 68-69-5694Xdrijtrr mean volume (Bld) [Entitic vol] 8.1 fL6.3-10.7FBarberton Citizens HospitalPlatelets Auto (Bld) [#/Vol] Ordered By: Moshe Saini on 05-87-1190Ijttjeqgy (Bld) [#/Vol]284 10*3/lQ657-103 [facility] HospitalPotassium [Moles/volume] in Serum or Plasma Ordered By: Moshe Saini on 61-12-5962Anopwnfea [Moles/Vol]4.0 mmol/L3.5-5.1 [facility] HospitalProtein Auto test strip (U) [Mass/Vol]Ordered By: Moshe Saini on 27-37-0818Ispssph (U) [Mass/Vol]NegativeNegativeMercy Health Clermont HospitalProtein [Mass/volume] in Serum or PlasmaOrdered By: Moshe Saini on 14-91-4129Nnfiwxl [Mass/Vol]7.2 g/dL6.4-8.9[facility] HospitalRBC Auto (Bld) [#/Vol]Ordered By: Moshe Saini on 89-05-8521NPN (Bld) [#/Vol]4.21 10*6/uL3.60-5.00[facility] Hospital Limaerum or plasma albumin/globulin mass ratioOrdered By: Moshe Saini on 10-21-2022 Albumin/Globulin [Mass ratio]1.7 {ratio}[facility] Limaerum or plasma anion gap determinationOrdered By: Moshe Saini on 43-91-5882Mozit gap [Moles/Vol]10.7 mmol/L6.0-15.0[facility] Limaodium [Moles/volume] in Serum or PlasmaOrdered By: Moshe Saini on 21-22-3647Hcnibz [Moles/Vol]136 mmol/O785-240EojiruonjKindred Hospital Limapecific gravity Auto test strip (U) [Rel density]Ordered By: Moshe Saini on 92-70-4717Ddtdfbjd gravity (U) [Rel density]1.0071.001-1.030[facility] HospitalUrea nitrogen [Mass/volume] in Serum or PlasmaOrdered By: Moshe Saini on 10-21-2022 Urea nitrogen [Mass/Vol]22 mg/dL7-25[facility] HospitalUrine clarity by refractometry automatedOrdered By: Moshe Saini on 83-82-5743Lxptban Refractometry automated (U)ClearClearFBarberton Citizens HospitalUrine glucose measurement by automated test strip (mass/volume)Ordered By: Moshe Saini on 45-89-9345Buazalg Auto test strip (U) [Mass/Vol]Normal mg/dLGreen Cross HospitalUrine hemoglobin detection by automated test stripOrdered By: Moshe Saini on 22-86-2031Jhtbaujgch Auto test strip Ql (U) NegativeNegProvidence HospitalUrine leukocyte esterase detection by automated test stripOrdered By: Moshe Saini on 10-21-2022 Leukocyte esterase Auto test strip Ql (U)NegativeNegProvidence HospitalUrobilinogen Auto test strip (U) [Mass/Vol]Ordered By: Moshe Saini on 62-92-7222Mxrsfhbsrfkp (U) [Mass/Vol]Normal mg/dLSelect Medical OhioHealth Rehabilitation Hospital - DublinWBC Auto (Bld) [#/Vol]Ordered By: Moshe Saini on 20-20-0788VDR (Bld) [#/Vol]8.4 10*3/uL3.8-11.6FBarberton Citizens Hospital pH Auto test strip (U)Ordered By: Moshe Saini on 22-78-8537uG (U)6.0 [pH] 5.0-9.0[facility] HospitalXR HIPS COLUMBA 3_4V WO PELVISon 05-19-2022 XR HIPS COLUMBA 3_4V WO PELVISEXAMINATION: XR HIPS COLUMBA 3_4V WO PELVIS HISTORY: [...] Electronically authenticated by: EMI BROWN Date: 2022-05-19 07:12[facility] [place] CADon 11-24-5124DS MAMM SCREEN 3D COLUMBA CAD Patient: XUAN IRBY Exam Date: 01/27/2022 : 1965 Gender:F Ordering : DR LUIS MIGUEL MATTUE Admission #: [id number] Family : Order #: [id number] CLICK HERE TO VIEW EXAM RADIOLOGY REPORT [...] lung cancer at age 72. LOCATION: [facility] BREAST COMPOSITION: Extremely dense, which lowers the [...] PALPABLE LUMP SHOULD BE BIOPSIED. Dictated by: Srinivas Ross M.D. on 01/28/2022 at 14:11 Approved by: Srinivas Ross M.D. on 01/28/2022 at 14:14[facility] WO CONon 38-83-9930TWW LSPINE WO CONEXAMINATION: MRI [facility] CON HISTORY: Degeneration of lumbosacral intervertebral disc [...] Electronically authenticated by: EMI BROWN Date: 2021-08-26 16:[address] [place] [address] Vital Signs Date TimeVital SignValuePerforming HxpduztdoAqyycgjs50-27-2541 10:36-0400Body spubrc844.4 cmLuis Miguel Matute MD Work Phone: [facility] CenterXdairdrbsv12-91-8175 10:36-0400Body mass index (BMI) [Ratio]32.22 kg/c9CqrurLuis Miguel Matute MD Work Phone: [facility] CenterCystvpkrzg66-09-8158 10:36-0400Body qzypop14.84 kgLuis Miguel Matute MD Work Phone: [facility] CenterFngvhakwat12-37-9129 10:36-0400Diastolic blood relbfrmq86 mm[Hg]Luis Miguel Matute MD Work Phone: [facility] CenterTlctgvnidi65-53-2148 10:36-0400Systolic blood zcfyckpa033 mm[Hg]Luis Miguel Matute MD Work Phone: [facility] CenterPtepazwhnt32-68-1743 10:28-0400Body mass index (BMI) [Ratio]31.44 kg/e4BwcjzLuis Miguel Matute MD Work Phone: [facility] CenterZviazqbphg04-96-7419 10:28-0400Body yfjsrx62.03 kgLuis Miguel Matute MD Work Phone: [facility] CenterBkcgsrvsjn86-88-3445 10:28-0400Diastolic blood mekhkbqp33 mm[Hg]Luis Miguel Matute MD Work Phone: noMS Jmsljekemz52-84-2922 10:28-0400Systolic blood mm[Hg]Luis Miguel Matute MD Work Phone: [facility] CenterOnhlpupezf17-62-8579 15:41-0400Body kwakah165.94 cmMD David Cowan Work Phone: [facility]07-31-2024 15:41-0400 Body mass index (BMI) [Ratio]30.4 kg/m2MD David Cowan Work Phone: [facility]07-31-2024 15:41-0400 Body shbaui88 kgMD David Cowan Work Phone: [facility]01-10-2024 15:30-0500 Body quonde358.94 cmJustin Yeny Other [employer] Other 01-10-2024 15:30-0500Body mass index (BMI) [Ratio] 30.42 kg/c0Iqjofd Yeny Other [employer] Other 01-10-2024 15:30-0500Body cmxynx95.03 kgJustin Yeny Other [employer] Other 12-21-2023 09:15-0500Body jwecxb192.94 cmDavid Cowan Other [employer] Other 12-21-2023 09:15-0500Body mass index (BMI) [Ratio] 30.49 kg/v8GzufifDavid Cowan Other [employer] Other 12-21-2023 09:15-0500Body gczhhe97.21 kgDavid Cowan Other [employer] Other 12-21-2023 09:15-0500Diastolic blood sgjfolel99 mm[Hg] David Cowan Other [employer] Other 12-21-2023 09:15-0500Systolic blood wyljqjus680 mm[Hg] David Cowan Other [employer] Other 09-11-2023 09:00-0400Body efqkkp611.94 cmRachnachristi Camryn Other [employer] Other 09-11-2023 09:00-0400Body mass index (BMI) [Ratio] 30.95 kg/a2XpcdubDavid Cowan Other [employer] Other 09-11-2023 09:00-0400Body fxyfec23.3 kgDavid Cowan Other [employer] Other 09-11-2023 09:00-0400Diastolic blood iyumlkzy79 mm[Hg] David Cowan Other [employer] Other 09-11-2023 09:00-0400Respiratory rate12 /minDavid Cowan Other [employer] Other 09-11-2023 09:00-0400Systolic blood mztnteha438 mm[Hg] David Cowan Other [employer] Other 09-06-2023 08:15-0400Body kyvpgd304.94 cmJunadia Saini Other [employer] Other 09-06-2023 08:15-0400Body mass index (BMI) [Ratio] 31.17 kg/c0Qlwcwyjacinto Saini Other [employer] Other 09-06-2023 08:15-0400Body rjsykr56.84 kgJunadia Saini Other [employer] Other 07-25-2023 13:55-0400Diastolic blood onmwmvch49 mm[Hg] MD David Cowan Work Phone: [facility]07-25-2023 13:55-0400 Heart rate75 /minMD David Cowan Work Phone: [facility]07-25-2023 13:55-0400 Respiratory rate16 /minMD David Cowan Work Phone: [phone]07-25-2023 13:55-0400 SaO2% (BldA) [Mass fraction]93 %MD David Cowan Work Phone: [facility]07-25-2023 13:55-0400 Systolic blood gqemhbsg813 mm[Hg]MD David Cowan Work Phone: [facility]07-25-2023 11:52-0400 Inhaled oxygen flow rate1.5 L/minMD David Cowan Work Phone: [facility]07-25-2023 10:37-0400 Body uqyscskrcjs24.4 [degF]MD David Cowan Work Phone: [facility]07-25-2023 08:32-0400 Body .4 cmMD David Cowan Work Phone: [facility]07-25-2023 08:32-0400 Body mass index (BMI) [Ratio]32.7 kg/m2MD David Cowan Work Phone: [facility]07-25-2023 08:32-0400 Body oamfcl09 kgMD David Cowan Work Phone: [facility]07-13-2023 15:30-0400 Body rnbupq210.94 cmDavid Cowan Other [place] [employer] Other 07-13-2023 15:30-0400Body mass index (BMI) [Ratio] 31.74 kg/a8JwfbpeDavid Cowan Other [employer] Other 07-13-2023 15:30-0400Body lilsyi90.2 kgDavid Cowan Other [employer] Other 07-13-2023 15:30-0400Diastolic blood knzsjhad73 mm[Hg] David Cowan Other [employer] Other 07-13-2023 15:30-0400Systolic blood qzxcoakb931 mm[Hg] David Cowan Other [employer] Other 07-05-2023 09:00-0400Body fqabpg576.94 cmJustin Yeny Other [employer] Other 07-05-2023 09:00-0400Body mass index (BMI) [Ratio] 31.17 kg/j4Gavovc Yeny Other [employer] Other 07-05-2023 09:00-0400Body qmgxdu47.84 kgJustin Yeny Other [employer] Other 05-22-2023 15:45-0400Body ejiguh940.94 cmJustin Yeny Other [employer] Other 04-25-2023 09:05-0400Diastolic blood uzebcobr60 mm[Hg] MD David Cowan Work Phone: [facility]04-25-2023 09:05-0400 Heart rate68 /minMD David Cowan Work Phone: [facility]04-25-2023 09:05-0400 Respiratory rate18 /minMD David Cowan Work Phone: [facility]04-25-2023 09:05-0400 SaO2% (BldA) [Mass fraction]99 %MD David Cowan Work Phone: [facility]04-25-2023 09:05-0400 Systolic blood cbyslwsi164 mm[Hg]MD David Cowan Work Phone: [facility]04-25-2023 07:29-0400 Body beqfud405.4 cmMD David Cowan Work Phone: [facility]04-25-2023 07:29-0400 Body jfjrua16.84 kgMD David Cowan Work Phone: [facility]04-03-2023 17:00-0400 Body iyijyh648.94 cmJustin Yeny Other [employer] Other 04-03-2023 17:00-0400Body mass index (BMI) [Ratio] 30.98 kg/t4Iaiznc [employer] Other [employer] Other 04-03-2023 17:00-0400Body anozag91.[address] [facility] Other 03-14-2023 09:08-0400Diastolic blood hpcjqvso55 mm[Hg] MD David Cowan Work Phone: [facility]03-14-2023 09:08-0400 Heart rate78 /minMD David Cowan Work Phone: [facility]03-14-2023 09:08-0400 Respiratory rate20 /minMD David Cowan Work Phone: [facility]03-14-2023 09:08-0400 SaO2% (BldA) [Mass fraction]100 %MD David Cowan Work Phone: [facility]03-14-2023 09:08-0400 Systolic blood eqqcknsa841 mm[Hg]MD David Cowan Work Phone: [facility]03-14-2023 07:30-0400 Body pgogbj782.4 cm David Cowan Work Phone: [facility]03-14-2023 07:30-0400 Body dgopyh12.84 kgMD David Cowan Work Phone: [facility]03-01-2023 15:30-0500 Body pdkimz145.94 cmJustin Yeny Other [employer] Other 03-01-2023 15:30-0500Body mass index (BMI) [Ratio] 30.98 kg/e6Gomaam Yeny Other [employer] Other 03-01-2023 15:30-0500Body djzdar39.39 kgJustin Yeny Other [employer] Other 02-06-2023 16:30-0500Body ggrdre860.94 cmDavid Cowan Other [employer] Other 02-06-2023 16:30-0500Body mass index (BMI) [Ratio] 30.98 kg/t7DxwwrkDavid Cowan Other [employer] Other 02-06-2023 16:30-0500Body asvtvp38.39 kgDavid Cowan Other [employer] Other 02-06-2023 16:30-0500Diastolic blood urnxxzlm31 mm[Hg] David Cowan Other [employer] Other 02-06-2023 16:30-2923OfB7% (BldA) [Mass fraction]99 % David Cowan Other [employer] Other 02-06-2023 16:30-0500Systolic blood uhobvqfq684 mm[Hg] David Cowan Other [employer] Other 06-02-2022 16:00-0400Body gtuqza133.94 cmDawoodluisana Cowan Other [employer] Other 06-02-2022 16:00-0400Body mass index (BMI) [Ratio] 31.55 kg/m2Daluisana Cowan Other [employer] Other 06-02-2022 16:00-0400Body tlelol46.75 kgDaluisana Cowan Other [employer] Other Encounters Encounter DateEncounter TypeCare ProviderFacilityStart: 02-05-2025 End: 93-66-7516Mdemdd Estrellita Matute MD Work Phone: [facility]BGYNStart: 02-05-2025 End: 41-50-5948Dsncis flowsSavage Matute MD Work Phone: [facility]BGYNStart: 02-05-2025 End: 45-51-0731Utmftld encounter procedureLuis Miguel Matute MD Work Phone: [facility] Work Phone: start: 02-05-2025 End: 47-86-7253Ehtiumkq preventive med est patient 40-64yrsLuis Miguel Matute MD Work Phone: [facility] OBGYNComment on above:Well woman exam with routine gynecological exam (Primary Dx); Other screening mammogramStart: 01-31-2024 End: 47-02-0296Xbjirh Estrellita Matute MD Work Phone: [facility] OBStart: 01-31-2024 End: 40-64-2464Opxfad flowsheetLuis Miguel Matute MD Work Phone: [facility] OBStart: 01-31-2024 End: 77-34-6521Wvplpex encounter procedureLuis Miguel Matute MD Work Phone: noID HealthcareStart: 01-31-2024 End: 49-32-4203Mwnownxh preventive med est patient 40-64yrsLuis Miguel Matute MD Work Phone: NOJW [facility] OBComment on above:Well woman exam with routine gynecological exam; Cervical cancer screening; Screening for HPV (human papillomavirus); Other screening mammogramStart: 01-31-2024 End: 54-43-5362tzvwavatxlTZHGT J PRINTYNramos AvailableStart: 11-10-2023 End: 38-30-0011vfueububvvRI Marcia E Braun Work Phone: [facility] Work Phone: Start: 11-10-2023 End: 90-87-7484Dhmwzsh encounter procedureMD David Cowan Work Phone: [facility] Work Phone: Start: 04-27-2023 End: 88-73-4744wfsstzrdepEpqvbl Kelley Other [facility] [employer] Other Start: 79-48-2659Fhccoeeci encounterJustjacinto [facility] OrthopedicsStart: 04-23-2023 End: 60-61-1209fwbddyneowXsxksx Braun Other [facility] [employer] Other Start: 71-65-4289Xhntccgho encounterDavid Fischer [facility] Hospitaltart: 75-91-6016Pheebj outpatient visit 15 minutesJustjacinto [facility] OrthopedicsStart: 04-21-2023 End: 36-91-5576Iqpgyfp encounter procedureMD David Cowan Work Phone: [facility] Start: 04-21-2023 End: 82-47-5425zexpakfnfmQI David Cowan Work Phone: [facility] Work Phone: Start: 04-01-2023 End: 40-05-6278stsdeflleyQecxom Braun Other [employer] Other Start: 62-15-4625Zihswo outpatient visit 25 minutes David Aaliyah [facility] ClinicStart: 01-20-2023 End: 28-66-5881zpgdjrwgkiBkoigt Kelley Other [employer] Other Start: 04-18-0101Ysngga follow up visit related to original pxJustin YenyCECILIAGracie [facility] OrthopedicsStart: 12-23-2022 End: 33-20-4735vctxkzhwutXwefba Braun Other [employer] Other Start: 87-09-0182Lvytveufl encounterMaralia CowanCECILIAGracie [facility] ClinicStart: 12-21-2022 End: 84-03-8295rxmewvckwkMrxuqw Braun Other [employer] Other Start: 56-73-5331Sexsaacxj for general adult medical examination without abnormal findingsDavid CowanGracie [facility] ClinicStart: 66-80-9620Ioaxonyq preventive med est patient 40-64yrsMarcia CamrynBanner [facility]bird [facility] Center Medical ClinicStart: 12-16-2022 End: 72-47-2417iidnjktxigBhbqtn Kelley Other [employer] Other Start: 14-99-7593Neqxtx follow up visit related to original pxJustin PedritoG [facility] OrthopedicsStart: 11-23-2022 End: 96-01-8115chzheqgbliBfdjir Yeny Other [employer] Other Start: 99-20-4678Dvbgpopei encounterJustin PedritoG [facility] OrthopedicsStart: 11-16-2022 End: 78-97-8339ykykvxttayPrmhxw Yeny Other [employer] Other Start: 53-26-5160Deihtj follow up visit related to original pxLibbystin PedritoG [facility] OrthopedicsStart: 11-05-2022 End: 25-11-0768yilqtfijvsOvzqkq Yeny Other [employer] Other Start: 69-15-3577Keqvnapku encounterJustin Otoniel [facility] OrthopedicsStart: 11-03-2022 End: 68-57-0548Hhlemtuga to same day surgery centerMD David Cowan Work Phone: [facility] CenterStart: 10-22-2022 End: 05-86-0388lwgxdzmwjsKnsslg Braun Other [employer] Other Start: 82-98-2077Ixendtdqn for other preprocedural examinationMarcichristi CowanRegional Medical Center ClinicStart: 79-09-5824Obfjxq outpatient visit 25 minutesMaralia CowanGracie [facility] ClinicStart: 10-21-2022 End: 77-09-5401ehuidgmsckBE David Cowan Work Phone: [facility] Work Phone: Start: 10-21-2022 End: 06-48-0730Xhfpuyv encounter procedureMD David Cowan Work Phone: [facility]-Pre-Surgical Testing Work Phone: Start: 10-14-2022 End: 29-80-2689rscdwojiziVzboaj Yeny Other [employer] Other Start: 15-29-0797Modezi outpatient visit 25 minutes Moshejacinto [facility] OrthopedicsStart: 10-05-2022 End: 10-19-9086mfypslnmxfEzzbwq Yeny Other [employer] Other Start: 89-26-0009Dsnnqrkgu encounterJustin Otoniel [facility] OrthopedicsStart: 09-23-2022 End: 88-53-0417eqylcodpvpDS David Cowan Work Phone: [facility] Work Phone: Start: 09-23-2022 End: 48-39-3010Fwingju encounter procedureMD David Cowan Work Phone: [facility] [place] Work Phone: Start: 08-31-2022 End: 50-48-9250iptuksjzcsHoyzyb Yeny Other [employer] Other Start: 27-13-4311Jlvqjp outpatient visit 25 minutes Moshe [facility] OrthopedicsStart: 08-04-2022(Procedure) ShortThomas [facility] OutPtStart: 08-04-2022 End: 07-47-6458Wuoylhuay to same day surgery centerMD David Cowan Work Phone: [facility] Work Phone: Start: 08-04-2022 End: 59-68-7431fpgmzitzbsTP Marcia E Braun Work Phone: [facility] Work Phone: Start: 07-13-2022 End: 42-64-1926wmsbugvaacBqpmel Yeny Other [employer] Other Start: 63-57-9185Feiatb outpatient visit 15 minutes Moshe [facility] OrthopedicsStart: 06-26-2022 End: 59-01-6984zwepitfphlXcuuvb Yeny Other [employer] Other Start: 85-84-7506Sxherapzj encounterJustjacinto YenyNORMA Referral CoordinatorStart: 06-23-2022(Procedure) ShortThomas [facility] OutPtStart: 06-23-2022 End: 10-05-7969Ajstlduif to same day surgery centerMD David Cowan Work Phone: [facility] Work Phone: Start: 06-23-2022 End: 67-11-5984cqmwokzgkjLR Marcia E Braun Work Phone: [facility] Work Phone: Start: 54-19-7837hrhrrdokdaBL NICK GARSIA . Facility:C1Oncbw: 06-10-2022 End: 24-22-5701dpicduxjqoKzigfr Kelley Other [employer] Other Start: 45-85-8490Thdppp outpatient visit 25 minutes Moshe SainiCECILIAGracie [facility] OrthopedicsStart: 05-19-2022 End: 79-72-6173laxctwxqddUiyjgv Braun Other [employer] Other Start: 33-27-2636Wcnbdjefy encounterDavid Fischer [facility] ClinicStart: 05-18-2022 End: 03-39-6318wobtklimrgPP DAVID Carbone [employer] Other Start: 06-65-0941Rcgprk outpatient visit 15 minutes David Fischer [facility] ClinicStart: 04-09-2022 End: 40-68-4062bayfhwutqfJP DAVID COWANFacility:T3Lvyyz: 03-24-2022 End: 51-71-2156huibondlwsIW NICK GARSIA .Facility:Z8Ybdri: 03-11-2022 End: 90-82-5576vhqnqpyvnhCG NICK GARSIA .Facility:R4Sqrew: 01-27-2022 End: 82-41-0968wrwkxxjyfmPL LUIS MIGUEL MATUTEFacility:I0Sphks: 85-01-1519lrrvjrhdbc MELISSA ARLENE .Facility:X3Ehyyk: 10-31-2021 End: 90-75-2058svikzramjtOPCWB ARLENE .Facility:H4Vewzo: 10-03-2021 End: 55-05-5755bpheaegthbVOIXI ARLENE .Facility:F8Akkkl: 09-26-2021 End: 30-86-8519vnpdzpgwzrDNKTO ARLENE .Facility:T4Npubz: 09-11-2021 End: 53-62-7822jmsbvfgpvcTved Braun Other [facility] [employer] Other start: 14-10-1484Kwriwm outpatient new 30 minutesDale BraunMa[facility], [place] NeurosurgeryStart: 08-26-2021 End: 41-20-5759nmdjlzxygyJE EMI BROWNFacility:Z1Vvskw: 29-93-3055Uugzk health examinationJustin Yeny Other [place] [employer] Other Procedures DateProcedureProcedure DetailPerforming ClinicianStart: 30-83-2829Okeipcrncoy Luis Miguel Matute MD Work Phone: start: 33-41-3604Thnxf X-ray of left hipMD David Cowan Work Phone: Start: 34-52-5888Zvbee X-ray of left hipMD David Cowan Work Phone: Start: 00-64-9586EorzkcxwvxkAunul Printy MD Work Phone: start: 64-77-4158Tmqsufhi of left total hip arthroplastyMD David Cowan Work Phone: Start: 39-80-0400Qwxzc X-ray of left hipMD David Cowan Work Phone: Start: 76-96-0947LPC of left hipMD David Cowan Work Phone: Start: 15-92-8569Zyiltxdyj on hipMD David Cowan Work Phone: Start: 69-06-4759Mbprciaif on hipMD David Cowan Work Phone: Start: 05-77-4006Zfyqsofzlgh observation [Identifier] in Cervix by Cyto Tank Matute MD Work Phone: start: 05-53-4434Wbfdtldap mammographyJunadia Saini Other Plan of Treatment DateCare ActivityDetailAuthorStart: 82-94-4291Xfsklvoos for malignant neoplasm of [facility]ixM[facility] HealthcareStart: 02-11-2026 End: 52-40-1068Daaifqd encounter owtlwdvdu98/02/2026 10:30 AM EST Office Visit CHRISTOPHER ANDREWS [address] [place] [address] Luis Miguel Matute MD [address] [place], [place] [id number] CHRISTOPHER DOLANNStart: 02-05-2026 End: 06-06-5624YPS Breast - bilateral screeningBilateral screening mammogram with tomosynthesis Imaging Routine Other screening mammogram Expected: 02/05/2026, Expires: 05/06/2026[facility] Work Phone: comment on above:Expected: 02/05/2026, Expires: 05/06/2026Start: 02-05-2025 End: 66-07-9990Givoksk encounter /27/2025 10:30 AM EDT Office Visit [facility]RE[facility] [address] [place] [address] Luis Miguel Matute MD [address] [place] [address] Well woman exam with routine gynecological exam; Other screening mammogramNOMS [place] OBGYNComment on above:Well woman exam with routine gynecological exam; Other screening mammogramStart: 53-76-6432Jusmiavow for malignant neoplasm of breastMammogramNOMS HealthcareStart: 08-42-0108Qonlcwdtm vaccinationInfluenza Vaccine (#1)[facility] HealthcareStart: 01-31-2024 End: 57-85-9368USO Breast - bilateral screeningBilateral screening mammogram with tomosynthesis Imaging Routine Other screening mammogram Expected: 01/31/2024, Expires: 03/27/2025[facility] Work Phone: comment on above:Expected: 01/31/2024, Expires: 03/27/2025Start: 01-31-2024 End: 80-14-5404Ufxyfne encounter brgnlpecm68/21/2024 10:30 AM EDT [facility] [address] [place] [address] Luis Miguel Matute MD [address] [place] [address] Well woman exam with routine gynecological exam; Cervical cancer screening; Screening for HPV (human papillomavirus); Other screening mammogramNOMS SWS OBComment on above:Well woman exam with routine gynecological exam; Cervical cancer screening; Screening for HPV (human papillomavirus); Other screening mammogramStart: 82-80-2843Qvbowwxpk for malignant neoplasm of breastMammogramNOMS HealthcareStart: 48-47-6627Hwnwtszsn for malignant neoplasm of cervixNOMS HealthcareStart: 81-76-2739Qlchnapqb vaccinationInfluenza Vaccine (#1)[facility] HealthcareStart: 81-33-1381AhydhksnaKindred Hospital Limatart: 07-76-5185Wvudukeu admissionKindred Hospital Limatart: 11-02-2022 [facility] CenterStart: 81-90-4521NbiiltuxuKettering Health Springfield CenterStart: 23-96-6896PygqcnnnwKindred Hospital Limatart: 1995 Screening for malignant neoplasm of cervixHPV/CotestNOMS HealthcareStart: 58-29-4263Mfkpdmqcs for malignant neoplasm of colonNOMS HealthcareIGP, APT HPV,RFX 16/18,45IGP, APT HPV,RFX 16/18,45 Lab Routine Cervical cancer screening Screening for HPV (human papillomavirus) Ordered: 01/31/2024[facility] Comment on above:Ordered: 01/31/2024atient EducationFelter Non Diagnostic Block [facility] Work Phone: Patient referralK[facility] Work Phone: Immunizations Immunization DateImmunizationNotesCare TvdaqpgzWdqnncaw87-19-4821rqpwxdtnw virus vaccine, unspecified formulationLuis Miguel Matute MD Work Phone: [facility] CenterPpofvjgiff29-85-9757tthosuyfd virus vaccine, unspecified formulationLuis Miguel Matute MD Work Phone: [facility] CenterPdghrlmsly89-14-2163WQYFV-25 Vaccine Moderna - Documentation Purposes OnlyJunadia Saini Other [facility]11-20-2022influenza virus vaccine, split virus (incl. purified surface antigen)Moshe Saini Other [place] [employer] Other [id number], injectable, Madin Canine Kidney, preservative free, quadrivalentLuis Miguel Matute MD Work Phone: [facility] CenterPvynngjszx52-30-2551CJOC-UkU-7, UnspecifiedLuis Miguel Matute MD Work Phone: [place] [address]Recodwuoyv11-07-3550bmdvoaifc, injectable, quadrivalent, preservative freeMarcia Cowan Other [facility]11-20-2022influenza virus vaccine, unspecified formulationLuis Miguel Matute MD Work Phone: [facility] Payers DatePayer CategoryPayerPolicy [id number] Health Insurance [employer] Member Subscriber Plan / Payer (Effective 2022-Present) Name: Xuan Irby Relation to Subscriber: Self Name: Xuan Irby Payer ID: Not on file Type: Not on file Address: [address] [id number] [id number] 2.16840.1.868557.3.57[id number] 2.840.1.320370.3.57[id number] 2.16840.1.769360.3.57[id number] 2.16840.1.289034.3.57[id number] 2.840.1.763409.3.57[id number] 2.16840.1.087849.3.57[id number] 2.16840.1.186115.3.57[id number] 2.16840.1.003144.3.57[id number] 2.16840.1.162109.3.57[id number] 2.16.840.1.601944.3.57[id number] 2.16.840.1.260206.3.57[id number] 2.16.840.1.608207.3.57[id number] 2.16.840.1.062590.19 [id number] 2.1[id number] 2.16.840.1.4[id number] 2.16.840.1.356940.3.579.2.531 Worker's CompensationWhMartins Ferry Hospital [id number] Social History DateTypeDetailFacilityStart: 01-26-2024 End: 23-25-5958Pla Assigned At [facility] [employer] Other start: 06-23-2022 End: 20-45-2881Gpmhmtm smoking status NHISEx-smoker (finding)[facility]: 61-71-8473Ypt Assigned At [facility] Daytontart: 04-12-1984 End: 21-07-8388Akfkiet of tobacco useCurrent smokerNOMS HealthcareStart: 04-12-1984 End: 23-19-4666Wlwiudl of tobacco useCigarette SmokerNOMS HealthcareStart: 01-14-2023 End: 99-48-5852Gvrclhhpbe smoked current (pack per day) - Xoxabtnc0XWHP HealthcareStart: 49-27-0236Rzcpror use and exposureSmokeless tobacco non-user [facility] HealthcareStart: 01-26-2024 End: 91-24-5591Fxxchmeio beverage intakeEx-drinker (finding)[facility] Start: 23-89-1163Izthxut CommentCaffeine intake: 2-3 cups per day [facility] HospitalStart: 82-16-6659Jlb assigned at birthNot on fileBoone Hospital CenterStart: 49-55-7662UhvRdoqhfFUDX Healthcare Medical Equipment Procedure CodeEquipment CodeEquipment Original TextEquipment IdentifierDates Minimally invasive revision of total replacement of hipCoated hip femur prosthesis, modular()[id number] FDAStart: 11-03-2022 Minimally invasive revision of total replacement of hipCeramic femoral head prosthesis()[id number] FDAStart: 28-36-9704Zqycsbuem invasive revision of total replacement of hipAcetabular shell ()[id number] FDAStart: 71-89-2487Kpvmwueda invasive revision of total replacement of hipOrthopaedic bone screw, non-bioabsorbable, sterile()[id number] FDAStart: 17-97-9881Kcphcmvmd invasive revision of total replacement of hipNon-constrained polyethylene acetabular liner()[id number] FDAStart: 11-03-2022 Goals DatePatient GoalDesired Activity/State Clinical Notes 09-11-2021 to 02-05-2025 Note Date & AoedOvxzWdqmlftc10-93-5060 History of Present illness Narrative* Luis Miguel Matute MD - 02/05/2025 10:30 AM EDT Images from the original note were not included. Luis Miguel Matute MD Obstetrics and Gynecology Patient: Xuan Irby, : 1965 (60 y.o.) DOS 02/05/25 Exam Date: 02/05/2025 HPI: She is well No issues Visit Vitals BP 110/76 Ht 5' Wt 165 lb BMI 32.22 kg/m OB Status Postmenopausal Smoking Status Former BSA 1.78 m OB History Para Term AB Living 2 1 1 0 0 1 SAB IAB Ectopic Multiple Live Births 0 0 0 0 1 # Outcome Date GA Lbr Bro/2nd Weight Sex Type Anes PTL Lv 2 1 Term Obstetric Comments Pap: 02/02-Neg LIBIA: HPV Neg Mammo: 02/01/24-Neg (TBH) Menopausal Medication and Allergies Medication Documentation Review Audit Reviewed by Wen Fam MA (Unishear Operator) on 02/05/25 at 1038 Medication Order Taking? Sig Documenting Provider Last Dose Status atorvastatin (Lipitor) 20 MG tablet [id number] Luis Miguel Matute MD Active calcium acetate (Phoslo) 667 MG capsule [id number] Take by mouth 3 (three) times a day with meals. Historical Provider, Active FLUoxetine (PROzac) 20 MG capsule [id number] .COMPLEX Luis Miguel Matute MD Active glucosamine-chondroitin 500-400 MG tablet [id number] Take 1 tablet by mouth in the morning and 1 tablet in the evening and 1 tablet before bedtime. Historical Provider, Active Multiple Vitamins-Minerals (Multivitamin) liquid [id number] Orally Historical Provider, Active propranolol LA (Inderal LA) 120 MG 24 hr capsule [id number] take 1 capsule by mouth once daily Wilber Lindsay DO Active propranolol LA (Inderal LA) 80 MG 24 hr capsule [id number] Yes Luis Miguel Matute MD Active Allergies[1] [...] Left 11/03/2022 VAGINAL DELIVERY documented in this encounterBoone Hospital CenterWqpjacvfqt76-73-6321 History of Present illness Narrative* Luis Miguel Matute MD - 01/31/2024 10:30 AM EDT Images from the original [...] Pap: 12/31-Neg LIBIA: HPV Neg Mammo: 01/29/23-Neg (TBH) Menopausal Medication and Allergies Medication Documentation Review Audit Reviewed by Marielena Vance MA (Unishear Operator) on 01/31/24 at 1031 Medication Order Taking? Sig Documenting Provider Last Dose Status atorvastatin (Lipitor) 20 MG tablet [id number] Yes Luis Miguel Matute MD Active calcium acetate (Phoslo) 667 MG capsule [id number] Take by mouth 3 (three) times a day with meals. Historical ProviderMD Active FLUoxetine (PROzac) 20 MG capsule [id number] Yes .COMPLEX Luis Miguel Matute MD Active glucosamine-chondroitin 500-400 MG tablet [id number] Take 1 tablet by mouth in the morning and 1 tablet in the evening and 1 tablet before bedtime. Historical ProviderMD Active Multiple Vitamins-Minerals (Multivitamin) liquid [id number] Orally Historical Provider, Active propranolol LA (Inderal LA) 120 MG 24 hr capsule [id number] take 1 capsule by mouth once daily [...] Print requisition? 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 They are doing well. Physicalexam is benign. She is doing well without complaints in regards to the hip. Still has some back stiffness which can be expected with her spondylolisthesis. Overall very happy with her outcome. Will continue to advance activities and continue conditioning work. May follow-up at the 1 year anniversary for recheck no x-rays Patient is progressing well. Continue physical therapy exercises and DIANE precautions. Instructed towork on strength and stretching exercises. Instructed patient to call with any questions or concerns. [facility] Other 12-21-2023 Evaluation note* Encounter Date Diagnosis Assessment Notes Treatment Notes Treatment Clinical Notes Mar, Hyperlipidemia, unspecified hype rlipidemia type (ICD-10 - E78.5) begin medicine - recheck in 2-3 months Mar,nxiety, generalized (ICD-10 - F41.1)Discussed referral to family health services for assessment and counseling. She states she doesn't like to drive to [employer] [place]. # given for [facility]. 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 They are doing well. Physicalexam is benign with a healthy appearing wound. [...] work as tolerated. We will have her follow- up in 3 months with repeat x-rays or sooner if she feels its necessary. [facility] Other 09-11-2023 Evaluation note* Encounter Date Diagnosis Assessment Notes Treatment Notes Treatment Clinical Notes Dec, Well adult exam (ICD-10 - Z00.00 ) We have discussed the necessity of following [...] vaccinations that apply. All questions answered and p atient is sent home pleased, without concerns. [facility] Other 09-06-2023 Evaluation note* Encounter Date Diagnosis Assessment Notes Treatment Notes Treatment Clinical Notes Dec, Primary osteoarthritis of left h ip (ICD-10 - M16.12) Dec,Status post total replacement of left hip (ICD-10 - Z96.642)Xuan presents today 6 weeks s/p left total hip arthroplasty. They are doing well. Physical exam is benign with a healthy appearing wound. She is no longer taking pain medications and has completed anticoagulation without any signs of DVT. She does tell me that she has had some bright red blood inher stool as well as in her urine and I have recommended being evaluated by her PCP for these problems. She denies any other issues and has had normal bowel and bladder function since these episodes.She is not having any abdominal or flank pain denies any hip pain. She is continuing physical therapy at this time. Not ready to return to work at this time but is scheduled to go back 01/25/2023. I will see her back before she is scheduled to go back to work to make sure she is ready no x-rays areneeded Patient is progressing well. Continue physical therapy exercises and DIANE precautions. Discussed with patient to continue off work at this time. Instructed patient to call with any questions or concerns. 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 Continue posterior hipprecautions until next follow-up. Xuan is here for [...] to continue to ambulate with the assistance ofa cane. She may use Tramadol and Tylenol as needed for pain. Patient voiced understanding and is agreeable to treatment plan. We will follow up in 4 weeks time. Nov,OtherSee orders for this visit as documented in the electronic medical record. [facility] Other 07-13-2023 Evaluation note* Encounter Date Diagnosis Assessment Notes Treatment Notes Treatment Clinical Notes Oct, Preoperative examination (ICD-10 - Z01.818) Pt is in overall good health. Without any major abnormalities found on preop testing, she is cleared to proceed w hip surgery later this month. Oct,rimary osteoarthritis of left hip (ICD-10 - M16.12)Reviewed history, meds and treatment plan. Oct,Lumbar degenerative disc disease (ICD-10 - M51.36)chronic problem. understands it will continue after hip surgery. Oct,Essential hypertension (ICD-10 - I10)well controlled on present med. [facility] Other 07-05-2023 Evaluation note* Encounter Date Diagnosis Assessment Notes Treatment Notes Treatment Clinical Notes Oct, Primary osteoarthritis of left h ip (ICD-10 - M16.12) Xuan presents with left hip DJD Complicated by high-grade spondylolisthesis at the L5-S1 level, sacroiliac DJD. At this juncture we have discussed the findings and diagnosis as well as personally reviewed appropriate imaging and performed interpretation of related testing and examination with thepatient in office today. Today we have discussed [...] The patient recognizes and understands our options andgoals and we will move forward with our [...] for proceeding with total hip replacement. The patientis experiencing severe disabling hip pain which is affecting daily life and ability to ambulate. Conservative means of treatment including NSAIDS and other medication as well as activity modificationand gentle exercise have not been effective in relieving symptoms or are not indicated at this time. It is now reasonable to proceed with total hip replacement. Patient given AAOS information handoutregarding total hip arthroplasty Oct,Spondylolisthesis, lumbar region (ICD-10 - M43.16)Stable, monitor [facility] Other 05-22-2023 Evaluation note* Encounter Date Diagnosis Assessment Notes Treatment Notes Treatment Clinical Notes August, Primary osteoarthritis of left h ip (ICD-10 - M16.12) Xuan presents with left hip DJD Complicated by high-grade spondylolisthesis at the L5-S1 level, sacroiliac DJD. At this juncture we have discussed the findings and diagnosis as well as personally reviewed appropriate imaging and performed interpretation of related testing and examination with thepatient in office today. Prior medical notes from [...] The patient recognizes and understands our options andgoals and we will move forward with our [...] and conservative treatment. An MRI will be necessaryto assess for an injury that could require surgical treatment. Patient given prescription for tramadol, pescription for naproxen and acetaminophen was sent into patients pharmacy. Discussed with patient Dr. Saini will call with results of MRI. August,Spondylolisthesis, lumbar region (ICD-10 - M43.16) [facility] [facility] [employer] Other 04-25-2023 [facility]-20[facility] Evaluation note* Encounter Date Diagnosis Assessment Notes Treatment Notes Treatment Clinical Notes Jul, Primary osteoarthritis of left h ip (ICD-10 - M16.12) Xuan presents with left hip DJD Complicated by high-grade spondylolisthesis at the L5-S1 level, sacroiliac DJD. At this juncture we have discussed the findings and diagnosis as well as personally reviewed appropriate imaging and performed interpretation of related testing and examination with thepatient in office today. Prior medical notes from [...] The patient recognizes and understands our options andgoals and we will move forward with our [...] for her to try an iliopsoas tendon injectionto see if that changes anything. She is agreeable and we will get this set up with Dr. Brisa Harper. Iwgiovanny see her back after injection to see if this noted any change The patient has been involved in our cooperative treatment plan and agrees to move forward with treatment at this time. Discussed with patient we will have her schedule with Dr. Brisa Harper for a iliopsoas injection. Jul,Spondylolisthesis, lumbar region (ICD-10 - M43.16) [employer] Other 03-01-2023 Evaluation note* Encounter Date Diagnosis Assessment Notes Treatment Notes Treatment Clinical Notes Jun, Primary osteoarthritis of left h ip (ICD-10 - M16.12) Xuan presents with left hip DJD Complicated by high-grade spondylolisthesis at the L5-S1 level, sacroiliac DJD. At this juncture we have discussed the findings and diagnosis as well as personally reviewed appropriate imaging and performed interpretation of related testing and examination with thepatient in office today. Prior medical notes from [...] The patient recognizes and understands our options andgoals and we will move forward with our [...] from before offering any interventions. At this timeI would recommend an intra-articular hip injection to [...] including gentle non-impact motion exercise and non-steroidal anti-inflammatory medication. We discussed the use of occasional intra-articular cortisone injections that can provide pain relief. Patient would like to proceed with hip joint injection with Dr. Brisa Harper (pain management). Jun,Spondylolisthesis, lumbar region (ICD-10 - M43.16) Jun,OtherSee orders for this visit as documented in the electronic medical record. [facility] [employer] Other 02-06-2023 Evaluation note* Encounter Date Diagnosis Assessment Notes Treatment Notes Treatment Clinical Notes May, Pain in right hip (ICD-10 - M25. 551) Ongoing issue with lumbar and hip pain for close to a year. Has done injections, PT and had lumbar MRI. Requests referral to Dr. Saini May,ain in left hip (ICD-10 - M25.552)as above. [employer] Other 12-29-2022 NoteCONSULTATION CONSULTATION DATE: 04/09/2022 HISTORY [...] and she is to continue her diclofenac.[facility] CenterAipwfmjy10-02-0478 NoteCONSULTATION CONSULTATION DATE: 03/11/2022 This is a very pleasant 57-year-old female who was a patient of Dr. Franklin and transitioned to our care. She has [...] minimal relief. The patient does work at [employer] and covers a lot of surface area [...] procedure and all questions were answered today.[facility] CenterEoqxglty92-82-7033 Evaluation note* Encounter Date Diagnosis Assessment Notes Treatment Notes Treatment Clinical Notes Sep, Spondylolisthesis, lumbar region (ICD-10 - M43.16) I have independently reviewed the MRI of the lumbar spine showing grade 4 spondylolisthesis, canal adequate, foramen adequate. Sep,Greater trochanteric bursitis of right hip (ICD-10 - M70.61) Clinically the patient has sacroiliac pain on the right indicative of sacroiliac inflammation and trochanteric bursitis and a positive Lavon's sign on the right consistent with right hip disease. Italked to the patient in detail and explained I do not believe this is a surgical issue at this point. The patient fully understands and agrees. We will send her to pain management for consideration of injection of the right trochanteric bursa, the right hip, and the right sacroiliac joint. Sep,rthropathy of right hip (ICD-10 - M16.11) [employer] [employer] Other evaluation noteNo InformationNort [employer] Other Evaluation noteNo assessment information available [facility] Work Phone: Evaluation note* Diagnosis Onset Date Resolution Status Presence of left artificial hip joint acute [facility] Work Phone: Evaluation note* Diagnosis Well woman exam with routine gynecological exam Routine gynecological examination Cervical cancer screening Screening for malignant neoplasm of the cervix Screening for HPV (human papillomavirus) Special screening examination for human papillomavirus (HPV) Other screening mammogram documented in this encounter [facility] HealthcareEvaluation note* Diagnosis Well woman exam with routine gynecological exam- Primary Routine gynecological examination Other screening mammogram documented in this encounter [facility] HealthcareHistory general Narrative - Reported* Type Description Date Medical History hypertension Surgical HistorybunionectomySurgical HistoryD&CHospitalization HistorySee Above [facility] Other History general Narrative - Reported* Type Description Date Medical History Tremor Medical HistoryDegenerative disc disease at L5-S1 levelMedical HistoryLumbar back pain with radiculopathy affecting left lower extremityMedical History Cervical lymphadenopathyMedical HistoryPain in right kneeMedical History Essential hypertensionSurgical HistorybunionectomySurgical HistoryD&C Hospitalization HistorySee Above [facility] Other History general Narrative - Reported* Type Description Date Medical History Tremor Medical HistoryDegenerative disc disease at L5-S1 levelMedical HistoryLumbar back pain with radiculopathy affecting left lower extremityMedical History Cervical lymphadenopathyMedical HistoryPain in right kneeMedical History Essential hypertensionSurgical HistorybunionectomySurgical HistoryD&CSurgical HistoryGoitre removed from throatHospitalization HistorySee Above [facility] [employer] Other History general Narrative - Reported* Type Description Date Medical History Tremor Medical HistoryDegenerative disc disease at L5-S1 levelMedical HistoryLumbar back pain with radiculopathy affecting left lower extremityMedical History Cervical lymphadenopathyMedical HistoryPain in right kneeMedical History Essential hypertensionSurgical HistorybunionectomySurgical HistoryD&CSurgical HistoryGoitre [facility] HistoryLTHA11/03/22Hospitalization HistorySee Above [facility] [employer] Other Hospital Discharge instructions Additional Instructions Total [...] drainage from your wound. Dr. Moshe Saini [facility] [address] [place], [place] [address] [phone] Parma [facility] Center Work Phone: Reason for Referral Reason Evaluate and Treat w ith Injections [facility] Diagnosis 1 Greater trochanteric bursitis of right hip (M70.61) Referral Organization [facility] urosurgery Referring Provider First Name Sergio Referring Provider Last Name Camryn Referring Provider Specialty Neurologica l Surgery Referred Organization Unknown Facility Referred Provider Dennis Mcallister Referred Provider Specialty Pain Medicin e Referral Priority Routine Reason 06/10/22 Xrays tod ay at [place] - saw Dr. Nasim Cowan and Dr. Garsia Diagnosis 1 Pain in right hip (M 25.551) Referral Organization [facility] Referring Provider First Name David Referring Provider Last Name Camryn Referring Provider Specialty Family [facility] Referred Organization [facility] Referred Provider Moshe Saini Referred Address [address],[place], [place],[address] Referred Provider Specialty Orthopedic S urgery Referral [...] Z96.642 - Presence of left artificial hip jointReason for VisitPresence of left artificial hip joint Advance Directives Advance Directive Response Recorded Date/ Time Advance Directives No August 19 3:47pm Advance Directive Response Recorded Date/ Time Advance Directives No August 19 2:47pm Summary Purpose Family History Relationship Condition Age at Onset Recorded Date/T quan father Diabetes mellitus Unknown Malignant neoplasmUnknownNot SpecifiedMalignant neoplasmUnknownHypertension UnknownbrotherDiabetes mellitusUnknownNo Family History Records Found Additional Source Comments REASON FOR VISIT (unrecogniz ed section and content) ReasonCommentsGynecologic ExamPt denies breast/bowel/urinary/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 Care Teams (unrecognized sec tion and content) Team Status: Active Member Role Status Dates David Cowan MD Primary Care Provider Active Team Status: Inactive Member Role Status Dates Destin Harper MD Attending Provider Active Elizabeth Fernandez Care ProviderActive Team Status: Inactive Member Role Status Dates David Cowan MD Primary Care Provider Active Agatha Quach ProviderActive Team Status: Inactive Member Role Status Dates David Cowan MD Primary Care Provider Active Daljit Hernández ProviderActive Team Status: Inactive Member Role Status Dates David Cowan MD Primary Care Provider Active Start: November 10, 2023 End: November 10, 2023JuDaljit Malloy ProviderActiveStart: November 10, 2023 End: November 10, 2023 Team Status: Active Member Role Status Dates David Cowan MD Primary Care Provider Active Start: November 10, 2023 Daljit Hernández ProviderActiveStart: November 10, 2023 Team MemberRelationshipSpecialtyStart DateEnd Date David Cowan MD [address] [place] [address] PCP - [facility]09/10/22Team MemberRelationshipSpecialtyStart DateEnd Date David Cowan MD [address] [place] [id number] PCP - [facility]09/10/22Team MemberRelationshipSpecialtyStart DateEnd Date David Cowan MD [address] [place] [id number] PCP - [facility]09/10/22Team MemberRelationshipSpecialtyStart DateEnd Date David Cowan MD [address] [place] [address] PCP - GeneralFamily Medicine09/10/22 INFORMATION SOURCE (unrecogn ized section and content) DATE CREATED AUTHOR 08/26/2022 [facility] DATE CREATED AUTHOR AUTHOR'S ORGANIZ ATION 11/13/2023 [facility] DATE CREATED AUTHOR AUTHOR'S ORGANIZ ATION 02/01/2024 [facility] EPIC Goals (unrecognized section and content) [...] BE BASED ON THE PRIMARY CLINICAL RECORDS. [employer] [facility] provides no warranty or guarantee of the accuracy or completeness of information in this document.
== END 2025-02-05 12:54 | disposition home or self-care (01) ==
LOC: MAMMO 12:54
PROVIDERS: PCP Family Medicine; Visit Provider Obstetrics & Gynecology
DX: Z12.31 Encounter for screening mammogram for malignant neoplasm of breast (principal); Z80.41 Family history of malignant neoplasm of ovary; Z80.0 Family history of malignant neoplasm of digestive organs; Z80.1 Family history of malignant neoplasm of trachea, bronchus and lung
CPT/HCPCS: 77063; 77067